=== PATIENT | female | born 1965 | race Caucasian/White ===

== ENCOUNTER 2019-03-06 16:40 | Inpatient (IN) | payer OTHER, MEDICAID ==
[~2019-03-06] VITALS: Ht 170.2 cm; Wt 148.1 kg
[2019-03-06 19:19] LABS: Basophils # (auto) 0.1 uL; Basophils % (auto) 0.6 % (0.0-2.0); Eosinophils # (auto) 0.1 uL; Eosinophils % (auto) 0.8 % (0.0-7.0); Hematocrit 44.1 % (36.0-46.0); Hemoglobin 14.6 g/dL (12.2-16.2); Lactic Acid w/Reflex 2.9 mmol/L (0.4-2.0); Lymphocytes # (auto) 1.5 uL; Lymphocytes % (auto) 9.5 % (10.0-50.0); Mean Corpuscular Hemoglobin 31.5 pg (28.0-32.0); Mean Corpuscular Hgb Conc. 33.1 g/dL (32.0-36.0); Mean Corpuscular Volume 95.1 fL (80.0-100.0); Monocytes # (auto) 1.3 uL; Monocytes % (auto) 7.8 % (0.0-12.0); Neutrophils # (auto) 13.2 uL; Neutrophils % (auto) 81.3 % (37.0-80.0); Platelet Count (auto) 224 10^3/uL (140-450); Red Blood Cells 4.63 10^6/uL (4.0-5.20); Red Cell Distribution Width 14.6 % (11.8-14.3); White Blood Cell 16.2 10^3/uL (4.4-10.8)
[2019-03-06 19:35] LABS: Albumin 3.2 g/dL (3.4-5.0); BUN/Creatinine Ratio 10.4; Calcium 8.9 mg/dL (8.5-10.1); Potassium 4.5 mmol/L (3.5-5.1)
[2019-03-06 19:38] LABS: Bilirubin, Total 0.5 mg/dL (0.2-1.0); Total Protein 8.3 g/dL (6.4-8.2)
[2019-03-06] MEDS ORDERED: VANCOMYCIN 1GM/250ML 250 ML IV ONE (22:30)
[2019-03-06] MEDS ORDERED: InsuLIN REG 1unit/0.01ml Soln (100units/ml) IV ONE (22:30)
[2019-03-06] MEDS ORDERED: PIPERACILLIN-TAZOB 3.375GM 100 ML IV ONE (22:30)
[2019-03-06] MEDS ORDERED: SODIUM CHLORIDE 0.9% 2,000 ML IV ONE (22:30)
[2019-03-06] MEDS ORDERED: NOREPINEPHRINE 8 MG/250ML KIT 250 ML IV ONE (23:54)
[2019-03-07] VITALS (61 sets, daily range): BP systolic 47–159; BP diastolic 25–104
[2019-03-07] MEDS ORDERED: SODIUM CHLORIDE 0.9% 2,000 ML IV ONE (00:15)
[2019-03-07] MEDS ORDERED: ACETAMINOPHEN 325 MG TAB PO ONE (00:15)
[2019-03-07] MEDS ORDERED: NOREPINEPHRINE 8 MG/250ML KIT 250 ML IV SCH (00:17)
[2019-03-07] MEDS ORDERED: ONDANSETRON HCL 4 MG/2 ML VIAL IV PRN (00:45)
[2019-03-07] MEDS ORDERED: SODIUM CHLORIDE 0.9% 1,000 ML IV ONE (00:45)
[2019-03-07] MEDS ORDERED: DEXTROSE (50%) 50ML SYRG IV PRN ×2 (00:45→16:00)
[2019-03-07] MEDS ORDERED: TEMAZEPAM 15 MG CAP PO PRN (00:45)
[2019-03-07] MEDS ORDERED: NITROGLYCERIN 0.4 MG SL TAB SL PRN (00:45)
[2019-03-07] MEDS: SODIUM CHLORIDE 0.9% 1,000 ML IV SCH ×3 (02:00→16:00)
[2019-03-07] MEDS ORDERED: VANCOMYCIN 1GM/250ML 250 ML IV ONE (03:00)
[2019-03-07] MEDS ORDERED: NOREPINEPHRINE 8 MG/250ML KIT 250 ML IV ONE (03:27)
--- NOTE | 2019-03-07 03:45 | NUR ---
ARRIVAL NOTE Pt being admitted to ICU [facility] admitted to ICU via gurney on youth nutritional monitor, and portable 02. Patient transfered to bed, connected to ICU monitoring and oxygen, [facility] Patient oriented to JOSE DOUGLASS, primary RN, unit, room, bed, and unit policies regarding patient care and visiting hours. All questions and concerns addressed, patient verbalized understanding. NOTE: PT ALERT AND ORIENTED X3. PT STATES SHE WANTS TO GET UP AND USE THE BATHROOM. BEDSIDE COMMODE PROVIDED FOR PT. WITH ASSISTANCE AND ANOTHER RN, PT GOT UP TO BED SIDE COMMODE AND VOIDED, PLACED BACK IN BED AND CONNECTED TO BEDSIDE MONITOR. PT TOLERATED WELL. PT ON 2L N.C. SATURATIONS 96%. PT CAME IN WITH LEFT AND RIGHT AC 18 G IV'S. PT ACCIDENTALLY PULLED OUT RIGHT IV. CATHETER INTACT. PRESSURE DRESSING APPLIED. LEVOPHED INFUSING THROUGH LEFT 18 IV. SITE BENIGN AND NO REDNESS OR INFILTRATION NOTED. WILL WATCH IV CLOSELY. ABSCESS TO RIGHT SIDE OF ANUS OOZING BLACK FLUID WITH FOUL SMELL. OPTIFOAM PLACED TO WOUND. SURGICAL CONSULT TODAY REGARDING ABSCESS. FRIEND AT BEDSIDE. CALL LIGHT WITHIN REACH AND PT VERBALIZED UNDERSTANDING TO CALL FOR ASSIST. BED IN LOWEST POSITION AND LOCKED.
[2019-03-07] MEDS: ACCU-CHEK COMFORT CURVE STRIP VI SCH ×5 (04:00→21:38)
[2019-03-07] MEDS: InsuLIN REG 1unit/0.01ml Soln (100units/ml) SC SCH ×5 (04:00→21:38)
--- NOTE | 2019-03-07 05:00 | NUR ---
PT REQUESTING TO SMOKE. EDUCATED PT ON SMOKING POLICY AND SMOKING CESSATION EDUCATION INITIATED. PAGED HOSPITALIST FOR NICOTINE PATCH AND OTHER ORDERS.
--- NOTE | 2019-03-07 05:10 | NUR ---
HOSPITALIST RETURNED CALL NEW ORDERS IN PLACE.
[2019-03-07] MEDS: CARBIDOPA W LEVODOPA 25/100mg TABLET PO SCH ×3 (06:00→21:36)
[2019-03-07] MEDS: GABAPENTIN 300 MG CAP PO SCH ×3 (06:00→21:37)
[2019-03-07 06:13] LABS: Albumin 2.5 g/dL (3.4-5.0); Calcium 7.8 mg/dL (8.5-10.1)
[2019-03-07 06:16] LABS: BUN/Creatinine Ratio 9.9; Bilirubin, Total 0.5 mg/dL (0.2-1.0); Total Protein 6.6 g/dL (6.4-8.2)
--- NOTE | 2019-03-07 06:44 | NUR ---
IV insertion IV access obtained, via clean sterile technique by inserting 2 separate 20 gauge catheters in right upper arm. IV's secured properly. No trauma to sites. Patient tolerated well.
[2019-03-07] MEDS ORDERED: LEVOTHYROXINE SODIUM 50 MCG TAB PO SCH (07:00)
[2019-03-07] MEDS ORDERED: LEVOTHYROXINE PO SCH ×3 (07:00)
[2019-03-07] MEDS: PIPERACILLIN-TAZOB 3.375GM 100 ML IV SCH ×3 (07:57→18:03)
--- NOTE | 2019-03-07 08:00 | NUR ---
Phone Call From MD. Sanchez Received phone call from surgical consult MD Sanchez. Updated on status of patient, no new orders received. MD said he will be by later today to see patient.
[2019-03-07] MEDS: VANCOMYCIN 1,250 MG in D5W 5% 250 ML IV SCH ×2 (08:58→21:45)
[2019-03-07] MEDS: NICOTINE 14 MG/24HR TOPICAL PATCH TD SCH (11:02)
[2019-03-07] MEDS: PARoxetine 20 MG TAB PO SCH (11:02)
[2019-03-07] MEDS: FAMOTIDINE 20 MG TAB PO SCH ×2 (11:03→21:37)
--- NOTE | 2019-03-07 13:00 | NUR ---
WOUND CARE NOTE: IN TO SEE PATIENT AT THIS TIME PER WOUND CARE CONSULT REQUEST. PATIENT RECENTLY ADMITTED TO [facility] WITH DIAGNOSIS OF SEPSIS. CURRENT SELENA SCORE IS 18. WOUND PHOTOS TAKEN AT THAT TIME BY BEDSIDE NURSE FOR REFERENCE, WOUND CONSULT ORDERED. PATIENT HAS SURGICAL CONSULT ORDERED FOR OPEN,DRAINING ABSCESS TO PERIRECTUM. WILL DEFER ALL RECOMMENDATIONS TO SURGEON FOR THIS WOUND. IN THE MEANTIME, ADVISED BEDSIDE NURSE TO APPLY SANITARY [place] TO THE AREA, SECURING PAD IN PLACE WITH DISPOSABLE UNDERWEAR. BILATERAL LEG/FEET HAVE MULTIPLE CLOSED, SCARRED LESIONS, WITH AN OPEN WOUND TO THE LEFT CALF, AND RIGHT # 1 TOE. THERAHONEY AND OPTIFOAM GENTLE OR BANDAID DRESSINGS APPLIED. NO OTHER WOUND NOTED AT THIS TIME. RECOMMEND: FREQUENT TURN SCHEDULE Q 2 HOURS, PRN CONDITION PERMITS WHEN PATIENT IN BED, EOD/PRN DRESSING CHANGES TO BLE OPEN WOUNDS, SANITARY [place]/DISPOSABLE UNDERWEAR TO PERIANAL WOUND WHILE AWAITING SURGICAL CONSULT, DIETARY CONSULT, CONTINUED MONITORING BY WOUND CARE TEAM. Addendum: 03/07/19 at 1701 by Rachele Raya RN Amended: Links added.
--- NOTE | 2019-03-07 13:00 | NUR ---
DR. SPANGLER AT BEDSIDE MD ASSESSED RIGHT BUTTOCK WOUND. NO PLANS FOR SURGERY AT THIS TIME. SEE NEW ORDER FOR WOUND CARE. WOUND CARE PROVIDED ORDERED.
--- NOTE | 2019-03-07 14:00 | NUR ---
Activity Patient assisted oob to bsc to urinate. Patient able to urinate 150ml of dark alexandrea urine. Will encourage po intake and notify md. Patient then assisted to chair using standby assistance. Pt tolerated well. Complete bed linen changed
--- NOTE | 2019-03-07 15:51 | NUR ---
ROUNDS DR. LOMBARDO AT BEDSIDE. UPDATED ON PATIENTS STATUS. NEW ORDERS IN PLACE. NOTIFIED OF POOR U/O OF ONLY 150ML OF DARK LINCOLN URINE WITH A STRONG ODOR. SEE MD ORDERS. Addendum: 03/07/19 at 1949 by Florina Segovia RN New order for laxative ordered. notified patient [place] able [place] [facility] [place] stated if patient is able to get out of bed and use commode is it ok to address issue. stated bowel is not priority at this time as patient has a wound to buttock and he does not want stool in area. . If patient unable to get out of bed and prevent stool from entering wound, medication to be held.
[2019-03-07] MEDS ORDERED: DILTIAZEM HCL 25 MG/5 ML VIAL IV ONE ×2 (15:59→16:00)
[2019-03-07] MEDS ORDERED: DILTIAZEM 125mg/125ml BAG KIT 125 ML IV SCH (17:00)
--- NOTE | 2019-03-07 17:00 | NUR ---
IV insertion IV access obtained, via clean sterile technique by inserting 20 gauge catheter at LEFT FORARM] after 1 attempt(s). IV secured properly. No trauma to site. Patient tolerated procedure well.
--- NOTE | 2019-03-07 17:00 | NUR ---
SPOKE WITH DIDIER Arthur PATIENTS HEART RATE AFLUTTER 130-110'S. TRANSCRIPT EVALUATOR SAID TO START CARDIZEM DRIP AT 10MG/HR. IF SBP BECOMES UNSTABLE TITRATE TO 5MG/HR. MD TO BE NOTIFIED. AFTER OBTAINING ORDERS, HR NOTED 80-90'S CURRENT BP 107/52. CARDIZEM GTT HELD AT THIS TIME.
--- NOTE | 2019-03-07 17:50 | NUR ---
Cardizem gtt started as hr increased back to 130-140's. Bp decreased to 80/50's. Phlebotomy Instructor paged as requested. New orders in place.
--- NOTE | 2019-03-07 17:55 | NUR ---
OUTPUT BLADDER SCANNER PERFORMED AND 456ML OF URINE NOTED. PATIENT STATING SHE CAN ATTEMPT TO GO INTO COMMODE SHE HAS SOME URGENCY.
[2019-03-07] MEDS ORDERED: PHENYLEPHRINE INJ 20 MG in SODIUM CHL 0.9% 250 ML IV SCH (17:57)
--- NOTE | 2019-03-07 18:11 | NUR ---
PACKAGING MANAGER AT BEDSIDE.
[2019-03-07] MEDS ORDERED: OPTISON 3ml Vial for INJ IV ONE (18:25)
[2019-03-07] MEDS: ACETAMINOPHEN 325 MG TAB PO PRN (18:27)
--- NOTE | 2019-03-07 18:58 | NUR ---
PATIENT ATTEMPTED TO URINATE VIA BEDPAN, APPROX 10CC OF LINCOLN URINE NOTED. PATIENT REQUESTING TO BE LEFT ALONE TO EAT AT THIS TIME. EDUCATED POSSIBILITY OF JONES CATHETER INSERTION DUE TO RETENTION. PATIENT AND FRIEND AT BEDSIDE VERBALIZED UNDERSTANDING.
--- NOTE | 2019-03-07 19:10 | NUR ---
paged to notify of urinary retention. New order in place.
--- NOTE | 2019-03-07 19:49 | NUR ---
Reported given to [facility] nurse re: plan of care [facility] nurse notified Dr. Cota request to hold laxative if patient unable to have bowel control or use bsc in order to be more sanitary. Miralax held as patients bp trending low and patient unstable to get out of bed at this time.
[2019-03-07] MEDS ORDERED: POLYETHYLENE GLYCOL 17 GM PWDR PO ONE (20:00)
[2019-03-07] MEDS: DILTIAZEM HCL 60 MG TAB PO SCH (21:36)
[2019-03-07] MEDS: ATORVASTATIN 20 MG TAB PO SCH (21:37)
[2019-03-07] MEDS: INSULIN LANTUS (GLARGINE) 1 /0.01ml (100units/ml) SC SCH (21:38)
[2019-03-07] MEDS: RIVAROXABAN 20 MG TAB PO SCH (21:49)
--- NOTE | 2019-03-07 22:00 | NUR ---
Wound Care Probed wound with sterile cotton tip applicator and cleansed with hydrogen peroxide as ordered by MD. Minimal fluid from wound foul odor noted.
--- NOTE | 2019-03-07 22:30 | NUR ---
ELIMINATION PT STATED SHE WANTED TO TRY AND USE THE BEDSIDE COMMODE AND SEE IF SHE CAN URINATE BEFORE WE HAVE TO PUT A JONES CATHETER IN HER. ASSISTED PT UP TO BEDSIDE COMMODE AND PT VOIDED 350 MLS OF DARK LINCOLN URINE. WILL NOT PLACE JONES AT THIS TIME.
[2019-03-08] VITALS (29 sets, daily range): BP systolic 83–143; BP diastolic 39–113
--- NOTE | 2019-03-08 | NUR ---
Family Pt's partner remains at bedside. Stated she is going home soon. All questions and concerns addressed.
[2019-03-08] MEDS: SODIUM CHLORIDE 0.9% 1,000 ML IV SCH ×3 (01:00→17:56)
[2019-03-08] MEDS: PIPERACILLIN-TAZOB 3.375GM 100 ML IV SCH ×2 (01:00→05:56)
[2019-03-08] MEDS: ACETAMINOPHEN 325 MG TAB PO PRN (01:07)
[2019-03-08 04:08] LABS: Basophils # (auto) 0.1 uL; Basophils % (auto) 0.7 % (0.0-2.0); Eosinophils # (auto) 0.2 uL; Eosinophils % (auto) 1.3 % (0.0-7.0); Hematocrit 36.8 % (36.0-46.0); Hemoglobin 12.2 g/dL (12.2-16.2); Lymphocytes # (auto) 1.4 uL; Lymphocytes % (auto) 11.4 % (10.0-50.0); Mean Corpuscular Hemoglobin 31.7 pg (28.0-32.0); Mean Corpuscular Hgb Conc. 33.2 g/dL (32.0-36.0); Mean Corpuscular Volume 95.4 fL (80.0-100.0); Monocytes # (auto) 0.8 uL; Monocytes % (auto) 7.1 % (0.0-12.0); Neutrophils # (auto) 9.5 uL; Neutrophils % (auto) 79.5 % (37.0-80.0); Nucleated Red Blood Cells % 0.1 %; Platelet Count (auto) 127 10^3/uL (140-450); Red Blood Cells 3.86 10^6/uL (4.0-5.20); Red Cell Distribution Width 15.2 % (11.8-14.3)
[2019-03-08 04:25] LABS: Lactic Acid w/Reflex 2.8 mmol/L (0.4-2.0)
[2019-03-08 04:57] LABS: Alanine Aminotransferase < 6 U/L (13-56); Albumin 2.3 g/dL (3.4-5.0); Anion Gap 8 (5-15); Aspartate Aminotransferase 20 U/L (15-37); BUN/Creatinine Ratio 15.4; Blood Urea Nitrogen 26 mg/dL (7-18); Calcium 7.9 mg/dL (8.5-10.1); Carbon Dioxide 24 mmol/L (21-32); Chloride 99 mmol/L (98-107); GFR African American 40 mL/min; GFR Non-African American 33 mL/min; Glucose 313 mg/dL (74-106); Magnesium 1.6 mg/dL (1.6-2.6); Potassium 3.9 mmol/L (3.5-5.1); Sodium 131 mmol/L (136-145)
[2019-03-08 05:00] LABS: Alkaline Phosphatase 91 U/L (45-117); Bilirubin, Total 0.5 mg/dL (0.2-1.0); Cholesterol 73 mg/dL (< 200); HDL Cholesterol 8 mg/dL (40-59); LDL Cholesterol 34 mg/dL (< 100); Total Protein 6.4 g/dL (6.4-8.2); Triglycerides 283 mg/dL (< 150)
[2019-03-08 05:07] LABS: Free T4 (Free Thyroxine) 0.87 ng/dL (0.89-1.76)
[2019-03-08 05:08] LABS: Folate (Folic Acid) 9.02 ng/mL (5.38-24)
--- NOTE | 2019-03-08 05:30 | NUR ---
PATIENT BEHAVIOR PATIENT TAKES OFF HER B/P CUFF AND O2 SAT PROBE PATIENT WAS GIVEN TEACHING ON THE IMPORTANCE OF VITAL SIGNS AND WAS TOLD TO KEEP THE B/P CUFF, O2 SAT PROBE, IV, HEART MONITOR FOR ACCURATE VITAL SIGNS. PATIENT CONTINUES TO TAKE OFF THE ABOVE ITEMS FROM [id number]. I HAVE GONE INTO PATIENTS ROOM SEVERAL TIMES TO REATTACH THESE ITEMS AND TO GO OVER THE SIGNIFICANCE AND IMPORTANCE OF BEING COMPLIANT WHILE IN THE HOSPITAL
[2019-03-08] MEDS: LEVOTHYROXINE SODIUM 50 MCG TAB PO SCH (05:56)
[2019-03-08] MEDS: CARBIDOPA W LEVODOPA 25/100mg TABLET PO SCH ×3 (05:56→23:07)
[2019-03-08] MEDS: DILTIAZEM HCL 60 MG TAB PO SCH ×3 (05:57→23:00)
[2019-03-08] MEDS: GABAPENTIN 300 MG CAP PO SCH ×3 (06:01→22:25)
[2019-03-08] MEDS: InsuLIN REG 1unit/0.01ml Soln (100units/ml) SC SCH ×3 (06:25→17:56)
[2019-03-08] MEDS: ACCU-CHEK COMFORT CURVE STRIP VI SCH ×4 (06:25→23:25)
--- NOTE | 2019-03-08 06:40 | NUR ---
WOUND CARE CLEANSED WOUND ACCORDING TO MD ORDERS. PT COMPLAINED OF BURNING PAIN UPON TOUCHING AND IRRIGATING WITH HYDROGEN PEROXIDE. MINIMAL SEROUS DRAINAGE NOTED.
--- NOTE | 2019-03-08 06:41 | NUR ---
CARES/HYGIENE PT REFUSED MORNING CARE AT THIS TIME. SHE WANTS TO SLEEP LONGER.
--- NOTE | 2019-03-08 07:30 | NUR ---
REPORT RECEIVED FROM NIGHT RN, PT RESTING IN BED WITH NO DISTRESS NOTED . CONTINUE TO MONITOR
--- NOTE | 2019-03-08 08:30 | NUR ---
ASSESSMENT PT AWAKE AND A/O X4. ABLE TO HELP MOVE SELF IN BED. LUNGS CLEAR THROUGHOUT. O2 AT 2 L VIA NC. TELE ATRIAL FLUTTER 110'S. PALPABLE PULSES TO ALL EXTREMITIES. ABD SOFT WITH ACTIVE BOWEL SOUNDS. LAST BM WAS 2 WKS AGO, PER PT, AND SHE STATES THAT THIS IS NOT UNCOMMON. VOIDS VIA BSC, NONE AT THIS TIME. PT WITH RECTAL ABCESS TO RIGHT BUTTOCK, AREA IS RED AND BLANCHABLE, VERY TENDER TO THE TOUCH WITH NO DRAINAGE NOTED. OPEN AREA WITH RED WOUND BED. LEFT LEG WITH CLOSED SKIN TEAR. RIGHT TOE WITH BANDAID DRESSING INTACT OVER SMALL OPEN WOUND WITH RED WOUND BED AND NO DRAINAGE NOTED. CONTINUE TO MONITOR.
--- NOTE | 2019-03-08 09:00 | NUR ---
ASSISTED PT TO BSC WHERE SHE PASSED A MODERATE TO LARGE FORMED BROWN BM. C/O BSC IS PUTTING PRESSURE ON HER ABCESS. TRANSFERRED TO [facility] WHERE SHE PASSES A SMALL AMOUNT MORE BROWN FORMED BM. ASSISTED WITH PERICARE AND PT BACK INTO BED.
[2019-03-08] MEDS: PHENYLEPHRINE INJ 20 MG in SODIUM CHL 0.9% 250 ML IV SCH ×2 (09:14→12:26)
--- NOTE | 2019-03-08 09:50 | NUR ---
RESTROOM PATIENT UP TO COMMODE WITH HELP ONCE PATIENT WAS HELPED TO HER FEET PATIENT STATED "DON'T TOUCH ME," PATIENT THEN QUICKLY WALKED TO THE COMMODE ON HER OWN. Addendum: 03/09/19 at 0041 by Kendy Hanna RN INCORRECT TIME, TIME SHOULD BE 2150
[2019-03-08] MEDS: VANCOMYCIN 1,250 MG in D5W 5% 250 ML IV SCH ×2 (09:59→21:10)
[2019-03-08] MEDS: PARoxetine 20 MG TAB PO SCH (10:02)
[2019-03-08] MEDS: FAMOTIDINE 20 MG TAB PO SCH ×2 (10:02→23:07)
[2019-03-08] MEDS: NICOTINE 14 MG/24HR TOPICAL PATCH TD SCH (10:08)
[2019-03-08] MEDS: MEROPENEM 1GM IVPB 100 ML IV SCH ×2 (12:04→22:25)
--- NOTE | 2019-03-08 13:30 | NUR ---
MD VISIT PT SEEN AND EXAMINED BY DR HARDY. UPDATED HIM ON PT'S CURRENT CONDITION AND BLOOD SUGAR RESULTS. WANTS TO START PT ON LISPRO INSULIN 15 UNITS SQ TID W/MEALS. THIS IS TO BE GIVEN IN ADDITION TO THE PT'S REGULAR INSULIN SLIDING SCALE COVERAGE.
[2019-03-08] MEDS ORDERED: INSULIN LISPRO (HUMAN) 100 UNITS/ML ML SC SCH (18:00)
[2019-03-08] MEDS: RIVAROXABAN 20 MG TAB PO SCH (18:02)
--- NOTE | 2019-03-08 18:15 | NUR ---
SPOKE WITH DR PINA REGARDING DOWNGRADE TO [facility]. DR HARDY HAD STATED WHEN HE MADE ROUNDS THAT THE PT COULD BE DOWNGRADED TO [facility] IF BP STABLE . UPDATED ON CURRENT VITALS AND DOWNGRADE ORDER RECEIVED.
--- NOTE | 2019-03-08 19:15 | NUR ---
PATIENT BEHAVIOR PATIENT TAKES OFF HER B/P CUFF AND O2 SAT PROBE PATIENT WAS GIVEN TEACHING ON THE IMPORTANCE OF VITAL SIGNS AND WAS TOLD TO KEEP THE B/P CUFF, O2 SAT PROBE, IV, HEART MONITOR FOR ACCURATE VITAL SIGNS
--- NOTE | 2019-03-08 19:35 | NUR ---
INITIAL CONTACT ASSUMED CARE OF PATIENT PATIENT APPEARS TO BE LAYING IN BED IN SEMI FOWLERS POSITION AT THIS TIME AAOX4 HOWEVER PATIENT APPEARS TO BE CONFUSED AT TIMES. VITAL SIGNS WITHIN NORMAL LIMITS NO S/S OF DISTRESS NOTED, PATIENT DENIES PAIN AT THIS TIME NOTED PATIENT IS ON 2 L NASAL CANNULA SATTING AT 97% NOTED 20 G IV LEFT A/C PATENT, INTACT AND ASYMPTOMATIC, SEE IV SPREADSHEET FOR MEDICATION AND TITRATIONS FAMILY AT BEDSIDE SAFETY MAINTAINED, WILL CONTINUE TO MONITOR
--- NOTE | 2019-03-08 19:55 | NUR ---
REPORT REPORT GIVEN TO WILMAN PIERCE RN. Addendum: 03/08/19 at 2015 by Sloane Mendoza RN ENDORSED TO WILMAN THAT UA IS OUTSTANDING. HAVE NOT BEEN ABLE TO COLLECT PT HAS HAD A BM WHEN SHE HAS VOIDED. SHE DOES NOT WANT A JONES TO BE PLACED.
[2019-03-08] MEDS: VANCOMYCIN PER PHARMACY 0 MG IV SCH (21:00)
--- NOTE | 2019-03-08 22:00 | NUR ---
PATIENT REFUSED WOUND CARE PATIENT STATES THAT SHE WOULD RATHER HAVE A DIAPER RASH CREAM ON HER BOTTOM PATIENT WAS TOLD THAT WE DO NOT CARRY DIAPER RASH CREAM AND OFFERED Z-GUARD, PATIENT REFUSED
--- NOTE | 2019-03-08 22:05 | NUR ---
Patient bathe/linen change Patient given complete bath. Skin integrity assessed for any changes. Linens changed. Patient repositioned for comfort. Gown changed. patient assessed for pain and comfort. Pillows placed under tarun prominences. No S/S of distress noted, patient tolerated well.
[2019-03-08] MEDS: ATORVASTATIN 20 MG TAB PO SCH (22:25)
--- NOTE | 2019-03-08 22:45 | NUR ---
PATIENT BEHAVIOR PATIENT TAKES OFF HER B/P CUFF AND O2 SAT PROBE PATIENT WAS GIVEN TEACHING ON THE IMPORTANCE OF VITAL SIGNS AND WAS TOLD TO KEEP THE B/P CUFF, O2 SAT PROBE, IV, HEART MONITOR FOR ACCURATE VITAL SIGNS. PATIENT CONTINUES TO TAKE OFF THE ABOVE ITEMS
--- NOTE | 2019-03-08 23:33 | NUR ---
PAIN PATIENT COMPLAINING OF PAIN AT THE SITE OF THE ABSCESS MORPHINE GIVEN
[2019-03-09] VITALS (42 sets, daily range): BP systolic 79–163; BP diastolic 38–117
--- NOTE | 2019-03-09 | NUR ---
WOUND CARE WOUND WAS CLEANED WITH PEROXIDE AND DRIED PATIENT TOLERATED WELL
--- NOTE | 2019-03-09 | NUR ---
16F JONES CATHETER PLACED PER DR. AIKEN
--- NOTE | 2019-03-09 | NUR ---
PATIENT BEHAVIOR PATIENT GETS OUT OF BED ON HER OWN AND CLOSES THE CURTAIN TO HER ROOM PATIENT WAS TOLD THAT IT IS UNSAFE TO CLOSE THE CURTAIN BECAUSE I AM UNABLE TO SEE VITAL SIGNS AND OR IF PATIENT IS IN DISTRESS FOR ANY REASON PATIENT VERBALIZED UNDERSTANDING, WILL CONTINUE TO MONITOR
--- NOTE | 2019-03-09 | NUR ---
PATIENT COMPLAINING OF NAUSEA ZOFRAN GIVEN FOR NAUSEA/VOMITING
--- NOTE | 2019-03-09 00:10 | NUR ---
URINE SAMPLE SENT TO LAB
[2019-03-09] MEDS: MORPHINE SULF INJ 2 MG/ML SYRINGE 1ML IV PRN ×2 (00:33→01:42)
--- NOTE | 2019-03-09 00:35 | NUR ---
FAMILY LEFT THE BEDSIDE FOR THE EVENING GEOFF/GIRLFRIEND, LEFT THE UNIT FOR THE EVENING
[2019-03-09 00:53] LABS: Urine WBC None Seen /hpf (0 - 5)
[2019-03-09] MEDS: INSULIN LANTUS (GLARGINE) 1 /0.01ml (100units/ml) SC SCH ×2 (00:54→22:31)
[2019-03-09] MEDS: InsuLIN REG 1unit/0.01ml Soln (100units/ml) SC SCH ×4 (01:00→22:32)
[2019-03-09 01:16] LABS: Urine Bacteria FEW /hpf (None Seen); Urine Blood Negative /uL (Negative); Urine Budding Yeast MANY /hpf (None Seen); Urine Specific Gravity 1.021 (1.001-1.035)
[2019-03-09 01:41] LABS: Protein, Urine 56.3 mg/dL (0.0-11.9)
--- NOTE | 2019-03-09 02:00 | NUR ---
WOUND CARE PATIENT REFUSED WOUND CARE AT THIS TIME STILL REQUESTING DIAPER RASH CREAM
--- NOTE | 2019-03-09 04:00 | NUR ---
WOUND CARE WOUND WAS CLEANED WITH PEROXIDE PATIENT TOLERATED WELL
[2019-03-09 04:10] LABS: Basophils # (auto) 0.1 uL; Basophils % (auto) 0.5 % (0.0-2.0); Eosinophils # (auto) 0.1 uL; Hematocrit 36.7 % (36.0-46.0); Hemoglobin 12.2 g/dL (12.2-16.2); Lymphocytes # (auto) 1.2 uL; Lymphocytes % (auto) 11.2 % (10.0-50.0); Mean Corpuscular Hemoglobin 31.5 pg (28.0-32.0); Mean Corpuscular Hgb Conc. 33.1 g/dL (32.0-36.0); Monocytes % (auto) 9.4 % (0.0-12.0); Neutrophils # (auto) 8.1 uL; Neutrophils % (auto) 77.9 % (37.0-80.0); Platelet Count (auto) 107 10^3/uL (140-450); Red Blood Cells 3.86 10^6/uL (4.0-5.20); Red Cell Distribution Width 15.1 % (11.8-14.3); White Blood Cell 10.5 10^3/uL (4.4-10.8)
[2019-03-09 04:29] LABS: Chloride 101 mmol/L (98-107); Potassium 4.2 mmol/L (3.5-5.1); Sodium 131 mmol/L (136-145)
[2019-03-09 04:36] LABS: Alanine Aminotransferase < 6 U/L (13-56); Albumin 2.2 g/dL (3.4-5.0); Alkaline Phosphatase 108 U/L (45-117); Anion Gap 6 (5-15); Aspartate Aminotransferase 17 U/L (15-37); BUN/Creatinine Ratio 21.2; Bilirubin, Total 0.4 mg/dL (0.2-1.0); Blood Urea Nitrogen 28 mg/dL (7-18); Calcium 8.2 mg/dL (8.5-10.1); Carbon Dioxide 24 mmol/L (21-32); GFR African American 54 mL/min; GFR Non-African American 44 mL/min; Glucose 240 mg/dL (74-106); Magnesium 2.3 mg/dL (1.6-2.6); Total Protein 6.6 g/dL (6.4-8.2)
--- NOTE | 2019-03-09 05:00 | NUR ---
BATHROOM/BEHAVIOR PATIENT TAKES OFF ATTACHMENTS FOR VITAL SIGNS, GETS OUT OF BED WITHOUT USING HER CALL LIGHT TO ASK FOR HELP. PATIENT WALKS TO THE COMMODE BY HERSELF. PATIENT WAS TOLD TO CALL FOR HELP WHEN NEEDING TO GET OUT OF BED. PATIENT VERBALIZED UNDERSTANDING. SAFETY MAINTAINED, WILL CONTINUE TO MONITOR
[2019-03-09] MEDS: VANCOMYCIN PER PHARMACY 0 MG IV SCH (06:00)
[2019-03-09] MEDS: DILTIAZEM HCL 60 MG TAB PO SCH ×3 (07:05→22:25)
[2019-03-09] MEDS: LEVOTHYROXINE SODIUM 50 MCG TAB PO SCH (07:05)
[2019-03-09] MEDS: GABAPENTIN 300 MG CAP PO SCH ×3 (07:05→22:26)
[2019-03-09] MEDS: CARBIDOPA W LEVODOPA 25/100mg TABLET PO SCH ×3 (07:05→22:17)
--- NOTE | 2019-03-09 07:30 | NUR ---
REPORT REPORT RECEIVED FROM WILMAN PIERCE RN.
--- NOTE | 2019-03-09 08:30 | NUR ---
PT AWAKE AND A/O X4. ABLE TO MOVE SELF IN BED. BED ALARM ON FOR PT SAFETY. LUNGS CLEAR WITH NO SOB NOTED. ON O2 AT 2 L/M . PT ATRIAL FLUTTER , 110. PALPABLE PULSES TO ALL EXTREMITIES. ABD SOFT , ROUND WITH + BOWEL SOUNDS. LAST BM WAS YESTERDAY. JONES CATHETER DRAINING CLEAR YELLOW URINE. PT WITH RECTAL ABSCESS TO RIGHT INNER BUTTOCK, YESTERDAY WAS OPEN AND NOW LIGHTLY SEALED OVER. AREA AROUND IS BLANCHABLE RED AND THEN PINK. PAINFUL TO THE TOUCH. TURNED FOR COMFORT. ADMINISTERED LIPRO INSUILN ORDERED WITH BREAKFAST.
[2019-03-09] MEDS: INSULIN LISPRO (HUMAN) 100 UNITS/ML ML SC SCH ×3 (09:05→18:40)
[2019-03-09] MEDS: VANCOMYCIN 1,250 MG in D5W 5% 250 ML IV SCH ×2 (09:49→22:05)
[2019-03-09] MEDS: FAMOTIDINE 20 MG TAB PO SCH ×2 (09:52→22:17)
[2019-03-09] MEDS: PARoxetine 20 MG TAB PO SCH (09:52)
[2019-03-09] MEDS: ASPirin 81 mg TAB PO SCH (09:52)
[2019-03-09] MEDS: NICOTINE 14 MG/24HR TOPICAL PATCH TD SCH (09:53)
[2019-03-09] MEDS: MEROPENEM 1GM IVPB 100 ML IV SCH ×2 (11:44→22:00)
[2019-03-09] MEDS: ACCU-CHEK COMFORT CURVE STRIP VI SCH ×3 (11:45→22:30)
--- NOTE | 2019-03-09 13:00 | NUR ---
PT DOZING OFF AND ON AND WANTS TO WAIT TO EAT LUNCH.
[2019-03-09] MEDS: SODIUM CHLORIDE 0.9% 1,000 ML IV SCH (13:05)
--- NOTE | 2019-03-09 15:21 | NUR ---
REPORT PT TO TRANSFER TO ROOM [facility]. REPORT CALLED TO RECEIVING RN, ANANTH. PT AND HER GIRLFRIEND , GEOFF, AWARE OF PENDING TRANSFER.
--- NOTE | 2019-03-09 16:30 | NUR ---
DELAY IN TRANSFER PT WITH HEART RATE UP TO 130'S FOR APPROX 5 MINUTES. WILL CONTINUE TO MONITOR PT BEFORE TRANSFERRING.
--- NOTE | 2019-03-09 17:09 | NUR ---
EKG DONE AND ST 111.
--- NOTE | 2019-03-09 17:30 | NUR ---
Admit to [facility] received to [facility] from ICU via hospital bed on lead electrical controls engineer, and portable 02. Patient assisted to restroom and back to bed, fall precautions in placed. Patient connected to unit monitoring and oxygen, and weighed by bedscale. Patient awake and oriented x3, re-oriented to time. No S/S of SOB or pain. See interventions for complete assessment. Bed locked on low position, side rails up x2, bed alarms on at all times, call church within reach, instructed to call for need assistance. Patient oriented to Rosalind ruvalcaba RN, unit, room, bed, and unit policies regarding patient care and visiting hours. All questions and concerns addressed, patient verbalized understanding. Will continue to monitor.
--- NOTE | 2019-03-09 17:40 | NUR ---
PATIENT TRANSPORTED TO [facility], ROOM 265 ON HOSPITAL BED WITH ALL BELONGINGS, CONNECTED TO PORTABLE MOLTEN IRON POURER AND PORTABLE OXYGEN. PATIENTS SIGNIFICANT OTHER ALONG SIDE PATIENT CONNECTED TO BEDSIDE MONITORS AND WALL OXYGEN. NEW ASSIGNED RADHA WADSWORTH AT BEDSIDE. PATIENT STABLE DURING TRANSPORT
[2019-03-09] MEDS: HYDROcodone-ACET 5/325MG TAB PO PRN ×2 (18:39→22:52)
[2019-03-09] MEDS: RIVAROXABAN 20 MG TAB PO SCH (18:39)
[2019-03-09] MEDS: ATORVASTATIN 20 MG TAB PO SCH (22:27)
--- NOTE | 2019-03-10 | NUR ---
Pt stated Cronin bothering her. Balloon deflated and catheter inserted further about another 2 inches. Reinflated balloon with 10ml saline. Vagina rinsed with saline incase Betadine from original insertion was irritating her. Pt stated that it felt better. RN warned pt that when she gets up and down from bed that it can pull on catheter and to be careful. Pt had verbalized understanding.
[2019-03-10] MEDS: SODIUM CHLORIDE 0.9% 1,000 ML IV SCH ×2 (00:50→14:10)
--- NOTE | 2019-03-10 01:00 | NUR ---
IV no longer patent. New IV placed, 20g to RT HD. Old IV removed, canula intact. Tolerated well.
[2019-03-10] MEDS: MEROPENEM 1GM IVPB 100 ML IV SCH ×3 (05:34→22:48)
[2019-03-10] MEDS: CARBIDOPA W LEVODOPA 25/100mg TABLET PO SCH ×3 (05:34→21:42)
[2019-03-10] MEDS: LEVOTHYROXINE SODIUM 50 MCG TAB PO SCH (05:37)
[2019-03-10] MEDS: HYDROcodone-ACET 5/325MG TAB PO PRN ×2 (05:38→21:40)
[2019-03-10] MEDS: GABAPENTIN 300 MG CAP PO SCH ×3 (05:39→21:42)
[2019-03-10] MEDS: DILTIAZEM HCL 60 MG TAB PO SCH ×3 (05:44→21:41)
[2019-03-10] MEDS: INSULIN LISPRO (HUMAN) 100 UNITS/ML ML SC SCH ×3 (06:00→17:34)
[2019-03-10] MEDS: ACCU-CHEK COMFORT CURVE STRIP VI SCH ×4 (06:00→21:42)
[2019-03-10] MEDS: InsuLIN REG 1unit/0.01ml Soln (100units/ml) SC SCH ×4 (06:01→21:42)
[2019-03-10 08:00] VITALS: BP 127/73
--- NOTE | 2019-03-10 08:00 | NUR ---
Opening Shift Note Assumed care of patient resting at this time. Patient A&Ox3. Patient on the monitor. Patient had taken of NC. Placed NC back on patient at 2L, O2 saturation now at 96%. IV right hand 20G running NS at 75ml/hr, patent, clean, dry, and intact. No S/S of distress/SOB or pain. Bed locked and in the lowest position, side rails up x2, call light with in reach. Instructed on POC and to call for assist PRN. Will continue to monitor.
--- NOTE | 2019-03-10 08:06 | NUR ---
Pt pulled out Cronin at 0515 and went to bathroom disconnecting herself from the IV and monitors. Pt stated Cronin was bothering her and she did not want to have more pain than what she came in for. No bleeding noted or trauma noted from pulling out catheter. Pt is agitated and confused blaming nurse for things that did not happen. Refused to be treated by nurse for wound care. Would only accept IV meds and oral meds this morning. Linens were changed while pt was in restroom. Wound care supplies had been pulled, will give them to AM shift and endorse wound care to the next shift. Also pt upset that she is not getting her correct dose of Gabapentin. Pt states she takes 1200mg TID. Will inform AM shift to request med update from . Pt resting at this time with no S/S of distress. [place] given this morning at 0600 for pain. Report given, care endorsed.
--- NOTE | 2019-03-10 09:00 | NUR ---
Dr. Craft at bedside.
--- NOTE | 2019-03-10 09:50 | NUR ---
Dr. Greenberg at bedside.
--- NOTE | 2019-03-10 10:00 | NUR ---
Medication dosages, usages, and side effects explained to patient. Patient verbalized understanding. Will continue to monitor.
[2019-03-10] MEDS: VANCOMYCIN 1,250 MG in D5W 5% 250 ML IV SCH ×2 (10:06→21:30)
[2019-03-10] MEDS: NICOTINE 14 MG/24HR TOPICAL PATCH TD SCH (10:06)
[2019-03-10] MEDS: ASPirin 81 mg TAB PO SCH (10:06)
[2019-03-10] MEDS: PARoxetine 20 MG TAB PO SCH (10:06)
[2019-03-10] MEDS: FAMOTIDINE 20 MG TAB PO SCH ×2 (10:06→21:42)
--- NOTE | 2019-03-10 10:30 | NUR ---
Patient refused wound care.
[2019-03-10 10:44] LABS: BUN/Creatinine Ratio 19.4; Calcium 7.8 mg/dL (8.5-10.1); Potassium 3.9 mmol/L (3.5-5.1)
--- NOTE | 2019-03-10 11:00 | NUR ---
Family at bedside.
[2019-03-10 11:50] VITALS: BP 93/66
--- NOTE | 2019-03-10 12:00 | NUR ---
Wound care done. Patient resting at this time.
--- NOTE | 2019-03-10 12:11 | NUR ---
NUTRITION ASSESSMENT NOTES Please refer to link notes of nutrition screen form filed under the intervention section of the plan of care for further details. Est. Needs: 1850 kcal to 2550 kcal (13-18 kcal/kgBW), 61 gms to 79 gms pro (1.0-1.3 gms/kgIBW d/t severe hypoalbuminemia, elev. renal labs). Will continue to monitor pertinent labs and reassess nutrient need prn Thank you. Addendum: 03/10/19 at [address] Amended: Links added.
--- NOTE | 2019-03-10 13:00 | NUR ---
Patient sitting up on side of bed eating lunch. Patient tolerating at this time. Will continue to monitor.
--- NOTE | 2019-03-10 15:30 | NUR ---
Patient resting at this time. No S/S of pain/SOB or distress. Will continue to monitor.
[2019-03-10 15:54] VITALS: BP 95/55
--- NOTE | 2019-03-10 16:40 | NUR ---
Patient taken to CT.
--- NOTE | 2019-03-10 16:52 | NUR ---
Patient back from CT. Patient on the monitor. Patient resting at this time. Will continue to monitor.
[2019-03-10] MEDS: RIVAROXABAN 20 MG TAB PO SCH (17:33)
--- NOTE | 2019-03-10 18:34 | NUR ---
End of shift note: Patient sitting on side of bed talking with family. Patient A&Ox3. Patient on the monitor. Patient on room air saturation at 94%. IV right hand 20G running NS at 75ml/hr, patent, clean, dry, and intact. No S/S of distress/SOB or pain. Bed locked and in the lowest position, side rails up x2, call light with in reach. Will continue to monitor. Report to be given to field operations coordinator RN.
[2019-03-10 20:00] VITALS: BP 89/50
--- NOTE | 2019-03-10 20:00 | NUR ---
SHIFT OPENING NOTE RECEIVED PATIENT AWAKE, ALERT AND ORIENTED X4. NO SOB, DISTRESS OR PAIN NOTED. ON ROOM AIR. PHYSICAL ASSESSMENT COMPLETED, SEE INTERVENTIONS. INSTRUCTED ON POC AND TO CALL FOR ASSIST NEEDED. BED IS IN THE LOWEST POSITION WITH SIDE RAILS UP X2, CALL LIGHT IS WITHIN REACH.
--- NOTE | 2019-03-10 21:10 | NUR ---
INDEPENDENTLY UP TO BATHROOM BACK TO BED SAFELY
--- NOTE | 2019-03-10 21:20 | NUR ---
IV insertion IV access obtained, via clean sterile technique by inserting [20] gauge catheter at [LFA] after [1] attempt(s). IV secured properly. No trauma to site. Patient tolerated well. NOTE: LEFT HAND IV LEAKING AND NOT FLUSHING, AND REMOVED.
--- NOTE | 2019-03-10 21:40 | NUR ---
SIGNIFICANT OTHER GEOFF AT BEDSIDE
[2019-03-10] MEDS: ATORVASTATIN 20 MG TAB PO SCH (21:41)
[2019-03-10] MEDS: INSULIN LANTUS (GLARGINE) 1 /0.01ml (100units/ml) SC SCH (21:42)
--- NOTE | 2019-03-10 23:44 | NUR ---
VISITOR LEFT THE BEDSIDE FOR THE NIGHT
[2019-03-11] VITALS: BP 138/71
[2019-03-11] MEDS: SODIUM CHLORIDE 0.9% 1,000 ML IV SCH ×2 (00:42→21:43)
--- NOTE | 2019-03-11 00:45 | NUR ---
ROUNDS PATIENT IS LAYING AWAKE IN BED ON HER CELLPHONE. NO SOB, DISTRESS OR PAIN NOTED. WILL CONTINUE TO CLOSELY MONITOR.
[2019-03-11 04:00] VITALS: BP 132/79
[2019-03-11 06:15] LABS: Basophils # (auto) 0.1 uL; Basophils % (auto) 0.7 % (0.0-2.0); Eosinophils # (auto) 0.2 uL; Eosinophils % (auto) 2.8 % (0.0-7.0); Hematocrit 36.3 % (36.0-46.0); Lymphocytes # (auto) 1.9 uL; Mean Corpuscular Hemoglobin 30.9 pg (28.0-32.0); Mean Corpuscular Hgb Conc. 33.1 g/dL (32.0-36.0); Mean Corpuscular Volume 93.4 fL (80.0-100.0); Monocytes # (auto) 1.1 uL; Neutrophils # (auto) 5.2 uL; Neutrophils % (auto) 61.5 % (37.0-80.0); Platelet Count (auto) 163 10^3/uL (140-450); Red Blood Cells 3.88 10^6/uL (4.0-5.20); Red Cell Distribution Width 15.1 % (11.8-14.3); White Blood Cell 8.5 10^3/uL (4.4-10.8)
[2019-03-11] MEDS: GABAPENTIN 300 MG CAP PO SCH ×3 (06:20→21:41)
[2019-03-11] MEDS: CARBIDOPA W LEVODOPA 25/100mg TABLET PO SCH ×3 (06:20→21:41)
[2019-03-11] MEDS: DILTIAZEM HCL 60 MG TAB PO SCH ×3 (06:20→21:41)
[2019-03-11] MEDS: MEROPENEM 1GM IVPB 100 ML IV SCH ×3 (06:20→21:43)
[2019-03-11] MEDS: LEVOTHYROXINE SODIUM 50 MCG TAB PO SCH (06:21)
[2019-03-11] MEDS: HYDROcodone-ACET 5/325MG TAB PO PRN ×2 (06:21→21:42)
[2019-03-11 06:29] LABS: BUN/Creatinine Ratio 11.3; Calcium 8.2 mg/dL (8.5-10.1); Potassium 3.9 mmol/L (3.5-5.1)
[2019-03-11] MEDS: InsuLIN REG 1unit/0.01ml Soln (100units/ml) SC SCH ×4 (06:44→21:44)
[2019-03-11] MEDS: ACCU-CHEK COMFORT CURVE STRIP VI SCH ×4 (06:44→21:43)
[2019-03-11] MEDS: INSULIN LISPRO (HUMAN) 100 UNITS/ML ML SC SCH ×3 (06:44→18:36)
--- NOTE | 2019-03-11 06:47 | NUR ---
END OF SHIFT PATIENT IS SITTING UP AT THE SIDE OF THE BED. NO SOB, OR DISTRESS NOTED. WILL GIVE REPORT AND ENDORSE CARE TO THE DAY SHIFT RN.
--- NOTE | 2019-03-11 07:30 | NUR ---
Opening Shift Note Assumed care of patient, patient sleeping on her right side, room air at this time, her O2 saturation around 81-83%, her o2 NC at the table, called patient by her name, put her back to O2 NC 3 LPM, her O2 saturation went to 95-96%. No S/S of distress/SOB or pain. Instructed on POC and to callfor assist PRN, will continue to monitor for changes Q1hr and PRN.
[2019-03-11 08:00] VITALS: BP 123/86
--- NOTE | 2019-03-11 08:15 | NUR ---
Breakfast tray provided, no coffee, patient can have light breakfast, plan for Stress test this morning. Patient made aware.
--- NOTE | 2019-03-11 08:35 | NUR ---
IV insertion IV access obtained, via clean sterile technique by inserting 20 gauge catheter at right forearm after 1 attempt. IV secured properly. No trauma to site. Patient tolerated procedure well.
[2019-03-11] MEDS: VANCOMYCIN 1,250 MG in D5W 5% 250 ML IV SCH ×2 (09:17→21:32)
[2019-03-11] MEDS: ASPirin 81 mg TAB PO SCH (09:17)
[2019-03-11] MEDS: PARoxetine 20 MG TAB PO SCH (09:17)
[2019-03-11] MEDS: NICOTINE 14 MG/24HR TOPICAL PATCH TD SCH (09:17)
[2019-03-11] MEDS: FAMOTIDINE 20 MG TAB PO SCH ×2 (09:17→21:39)
--- NOTE | 2019-03-11 09:46 | NUR ---
Patient sleeping at this time, no complaining of SOB or chest pain noted.
--- NOTE | 2019-03-11 10:30 | NUR ---
Patient walked to the restroom, stated that she had bowel movement. Back to the bed, sitting on the edge of the bed, no complaining of SOB. Will continue to monitor.
--- NOTE | 2019-03-11 10:50 | NUR ---
Dr. Greenberg seen patient at this time, plan of care discussed with patient, patient made aware, will wait Dr. Sanchez to see patient for the wound management.
[2019-03-11] MEDS ORDERED: ADENOSINE 120 MG in GIVE UN-DILUTED 0 ML IV STA (11:03)
[2019-03-11] MEDS: FLUCONAZOLE 200MG/100ML 100 ML IV SCH ×2 (11:09→12:27)
[2019-03-11 11:51] VITALS: BP 114/65
--- NOTE | 2019-03-11 13:59 | NUR ---
STRESS TEST Stress test on hold at this time. Dobutamine will be most appropriate for this patient however the heart rate is too high. Medication changes will be made and the patient will be checked daily too see if it's appropriate to proceed. MD/CURRICULUM DESIGNER and Primary RN aware.
[2019-03-11] MEDS: DILTIAZEM HCL 25 MG/5 ML VIAL IV ONE (14:00)
--- NOTE | 2019-03-11 14:00 | NUR ---
Lunch tray provided, patient sitting on the bed, her friend at the bedside. Insulin as schedule given at this time due to they were hold for the stress test.
--- NOTE | 2019-03-11 14:30 | NUR ---
Dr. Michel at the bedside, seen and examined patient at this time, plan of care discussed with patient and her friend, they made aware that plan for OR tomorrow.
[2019-03-11 15:45] VITALS: BP 120/81
[2019-03-11] MEDS: RIVAROXABAN 20 MG TAB PO SCH (18:00)
--- NOTE | 2019-03-11 18:20 | NUR ---
Patient sitting on the edge of the bed, watching the game on her phone with her girlfriend, dinner tray provided.
--- NOTE | 2019-03-11 19:45 | NUR ---
Opening Shift Note Assumed care of patient, awake and alert. No S/S of distress/SOB. Patient's significant other , ruthie at bedside. Complete physical assessment done: see interventions. Instructed on POC and to call for assist PRN, will continue to monitor for changes frequently.
[2019-03-11 19:54] VITALS: BP 115/69
--- NOTE | 2019-03-11 21:38 | NUR ---
SPOKE WITH PHARMACIST ABOUT MISSING SCHEDULED MED NIACIN 2000MG NOT AVAILABLE, SINCE PATIENT DOES NOT TAKE THIS MED AT HOME PHARMACIST SAID TO LET THE MD KNOW TOMORROW TO [facility] MED.
[2019-03-11] MEDS: ATORVASTATIN 20 MG TAB PO SCH (21:39)
[2019-03-11] MEDS: INSULIN LANTUS (GLARGINE) 1 /0.01ml (100units/ml) SC SCH (21:44)
--- NOTE | 2019-03-12 04:17 | NUR ---
HYPOTHERMIC UNABLE TO READ ORAL AND AXILLARY TEMPERATURES, RECTAL TEMPERATURE DONE SHOWS 95.7F PATIENT NOW WITH A MAGALI NEERUER. CONTINUE TO MONITOR. Addendum: 03/12/19 at 0420 by Gisella Romero RN PLEASE DISREGARD, CHARTED DONE ON WRONG PATIENT
[2019-03-12 05:46] LABS: INR 1.16 (0.9-1.15); Partial Thromboplastin Time 29.9 sec (23.64-32.05)
[2019-03-12] MEDS: MEROPENEM 1GM IVPB 100 ML IV SCH ×3 (05:46→23:18)
[2019-03-12] MEDS: INSULIN LISPRO (HUMAN) 100 UNITS/ML ML SC SCH ×3 (05:51→18:43)
[2019-03-12] MEDS: InsuLIN REG 1unit/0.01ml Soln (100units/ml) SC SCH ×4 (05:51→21:41)
[2019-03-12] MEDS: ACCU-CHEK COMFORT CURVE STRIP VI SCH ×4 (05:51→21:41)
[2019-03-12] MEDS: GABAPENTIN 300 MG CAP PO SCH ×3 (05:53→21:38)
[2019-03-12] MEDS: LEVOTHYROXINE SODIUM 50 MCG TAB PO SCH (05:53)
[2019-03-12] MEDS: CARBIDOPA W LEVODOPA 25/100mg TABLET PO SCH ×3 (05:53→21:39)
[2019-03-12] MEDS: DILTIAZEM HCL 60 MG TAB PO SCH ×3 (05:55→21:39)
[2019-03-12 05:56] VITALS: BP 123/73
[2019-03-12 06:05] LABS: BUN/Creatinine Ratio 7.6; Calcium 8.3 mg/dL (8.5-10.1); Potassium 3.6 mmol/L (3.5-5.1)
[2019-03-12] MEDS: SODIUM CHLORIDE 0.9% 1,000 ML IV SCH (06:10)
--- NOTE | 2019-03-12 06:25 | NUR ---
AM CARE/CHG WIPES PATIENT AMBULATED TO TOILET WITH SB ASSIST COMPLETE LINEN CHANGE DONE , CHG WIPES GIVEN TO PATIENT FOR PRE-OP PATIENT ABLE TO CLEANSE SELF INDEPENDENTLY. NEW GOWN PLACED ON PATIENT. HAS REMAINED NPO FOR SX TODAY EXCEPT FOR AM MEDS THIS AM. PATIENT BACK IN BED WITH CALL LIGHT WITHIN EASY REACH. WILL CONTINUE TO MONITOR.
--- NOTE | 2019-03-12 07:34 | NUR ---
preop check list complete and placed in hard chart
--- NOTE | 2019-03-12 07:40 | NUR ---
Opening Shift Note Assumed care of patient, sleeping on her left side. No S/S of distress/SOB or pain. Instructed on POC and to call for assist PRN, will continue to monitor for changes Q1hr and PRN.
--- NOTE | 2019-03-12 07:54 | NUR ---
Received a call from Dr. Michel regarding OR this morning, MD need Dr. Greenberg to clear patient for OR. Called blanket winder operator, will page Dr. Greenberg, waiting a call back from and then will call back to Dr. Michel.
[2019-03-12 07:59] VITALS: BP 117/74
--- NOTE | 2019-03-12 08:40 | NUR ---
Patient still sleeping at this time, HR 110-115, RR 18-22, O2 saturation around 94-96%, lung sounds clear both lungs, better than yesterday. No wheezing noted while sleeping. Still waiting a call back from Dr. Greenberg to clear for OR today.
--- NOTE | 2019-03-12 08:51 | NUR ---
Stress Test Update Pt tachycardic in high 110s. Primary RN notified, pt will be evaluated tomorrow again for stress test. Stress test held at this time. Pt able to eat if no pending procedures.
[2019-03-12] MEDS: VANCOMYCIN 1,250 MG in D5W 5% 250 ML IV SCH ×2 (09:24→20:45)
--- NOTE | 2019-03-12 10:01 | NUR ---
Paged Dr. Greenberg per Dr. Michel requested to clear for OR today, will wait a call back.
--- NOTE | 2019-03-12 10:10 | NUR ---
OR made aware that patient is clear for OR. OR will contact Dr. Michel.
--- NOTE | 2019-03-12 10:13 | NUR ---
Received a call from Dr. Greenberg, patient clear for . Paged Dr. Michel.
--- NOTE | 2019-03-12 10:28 | NUR ---
Received a call from Dr. Shayla MD made aware that patient is clear for OR today but he recommends that patient need to be controlled with her HR and need to have Stress test done before OR (for I&D). Will let patient know about the plan, will let Dr. Greenberg make aware too.
--- NOTE | 2019-03-12 10:50 | NUR ---
Dr. Greenberg made aware, will talk to Dr. Ely for further treatment.
[2019-03-12] MEDS: FLUCONAZOLE 200MG/100ML 100 ML IV SCH (10:51)
[2019-03-12] MEDS: DILTIAZEM HCL 25 MG/5 ML VIAL IV ONE (11:10)
--- NOTE | 2019-03-12 11:14 | NUR ---
OUTFITTER CABIN for Dr. Ely seen and examined patient at this time. Plan of care discussed with patient, patient made aware, OUTFITTER CABIN will discuss with Dr. Ely.
[2019-03-12] MEDS ORDERED: DILTIAZEM HCL 25 MG/5 ML VIAL IV ONE (11:15)
--- NOTE | 2019-03-12 11:19 | NUR ---
Patient refused O2 NC at this time, when room air, her O2 saturation around 88-92%, will continue to monitor and care.
[2019-03-12 11:53] VITALS: BP 112/66
[2019-03-12] MEDS ORDERED: CARVEDILOL 3.125 MG TAB PO ONE (12:15)
--- NOTE | 2019-03-12 12:45 | NUR ---
Lunch tray provided. Her girlfriend at the bedside, patient felt better, would like to eat now. On O2 NC 3 LPM, Sitting at the edge of the bed for having Lunch.
[2019-03-12] MEDS: PARoxetine 20 MG TAB PO SCH (12:46)
[2019-03-12] MEDS: NICOTINE 14 MG/24HR TOPICAL PATCH TD SCH (12:46)
[2019-03-12] MEDS: FAMOTIDINE 20 MG TAB PO SCH ×2 (12:46→21:40)
[2019-03-12] MEDS: ASPirin 81 mg TAB PO SCH (12:46)
[2019-03-12] MEDS ORDERED: DIGOXIN (250MCG/ML) 2 ML AMPULE IV ONE ×2 (15:00→17:00)
--- NOTE | 2019-03-12 15:05 | NUR ---
Patient lying on the bed, made aware about the plan of care, Digoxin given as order, HR 115, BP 116/72 mmHg, will continue to monitor for HR. Her girlfriend at the bedside, made aware.
[2019-03-12 15:50] VITALS: BP 135/80
--- NOTE | 2019-03-12 15:58 | NUR ---
Patient still sleeping, EKG showing A. Flutter HR 115 /min, on O2 NC 3 LPM, O2 saturation around 94-95%, sometimes when room air her saturation around 82-84%.
[2019-03-12] MEDS: RIVAROXABAN 20 MG TAB PO SCH (17:38)
--- NOTE | 2019-03-12 18:30 | NUR ---
After Digoxin second dose given, HR 75-90 /min with A. flutter. BP 116/81 mmHg, still on O3 NC 3 LPM, RR 22 /min, O2 saturation 92-94%, Lung sounds clear. Will continue to monitor and care.
--- NOTE | 2019-03-12 19:05 | NUR ---
OPENING SHIFT RECEIVED REPORT FROM DAY SHIFT RN. ASSUMED CARE OF PATIENT. PATIENT IN BED WITH GIRLFRIEND AT BEDSIDE. CURRENTLY ON 3L 02 NASAL CANULA, 02 SAT - 93%. LEFT AND RIGHT FOREARM IV - CLEAN/DRY/INTACT. UPDATED PATIENT ON PLAN OF CARE. BED IN LOWEST POSITION, SIDE RAILS UP X2, CALL LIGHT WITHIN REACH. WILL CONTINUE TO MONITOR.
[2019-03-12 19:39] VITALS: BP 106/54
[2019-03-12] MEDS: HYDROcodone-ACET 5/325MG TAB PO PRN (21:39)
[2019-03-12] MEDS: ATORVASTATIN 20 MG TAB PO SCH (21:40)
[2019-03-12] MEDS: CARVEDILOL 3.125 MG TAB PO SCH (21:40)
[2019-03-12] MEDS: INSULIN LANTUS (GLARGINE) 1 /0.01ml (100units/ml) SC SCH (21:41)
--- NOTE | 2019-03-12 23:15 | NUR ---
ROUNDS PATIENT IN BED WATCHING TV WITH NO SIGNS OR SYMPTOMS OF SOB, PAIN OR DISTRESS. CURRENTLY ON 3L 02 NASAL CANULA, 02 SAT - 978%. REPOSITIONED FOR COMFORT. BED IN LOWEST POSITION, SIDE RAILS UP X2, CALL LIGHT WITHIN REACH. WILL CONTINUE TO MONITOR.
[2019-03-13] VITALS (7 sets, daily range): BP systolic 115–161; BP diastolic 54–92
--- NOTE | 2019-03-13 01:25 | NUR ---
HAT PLACED IN TOILET TO MONITOR URINE OUTPUT. PATIENT CONTINUES TO REMOVE HAT AND PLACE IT ON THE FLOOR WHEN USING THE RESTROOM. EDUCATED PATIENT ON STRICT INTAKE AND OUTPUT. WILL CONTINUE TO ENDORSE THE USE OF THE HAT FOR ACCURATE MEASUREMENT OF URINE OUTPUT.
--- NOTE | 2019-03-13 02:55 | NUR ---
ROUNDS PATIENT IN BED SLEEPING WITH NO SIGNS OR SYMPTOMS OF SOB, PAIN OR DISTRESS. CURRENTLY ON 3L 02 NASAL CANULA, 02 SAT - 96%. REPOSITIONED FOR COMFORT. BED IN LOWEST POSITION, SIDE RAILS UP X2, CALL LIGHT WITHIN REACH. WILL CONTINUE TO MONITOR.
--- NOTE | 2019-03-13 03:25 | NUR ---
MORNING CARE PATIENT REFUSED MORNING CARE AND REFUSED GOWN CHANGE AT THIS TIME. PARTIAL LINEN CHANGE. REPOSITIONED FOR COMFORT. BED IN LOWEST POSITION, SIDE RAILS UP X2, CALL LIGHT WITHIN REACH. WILL CONTINUE TO MONITOR.
[2019-03-13] MEDS: DILTIAZEM HCL 60 MG TAB PO SCH ×3 (05:45→22:11)
[2019-03-13] MEDS: LEVOTHYROXINE SODIUM 50 MCG TAB PO SCH (05:46)
[2019-03-13] MEDS: CARBIDOPA W LEVODOPA 25/100mg TABLET PO SCH ×3 (05:48→22:12)
[2019-03-13] MEDS: GABAPENTIN 300 MG CAP PO SCH ×3 (05:48→22:09)
[2019-03-13] MEDS: MEROPENEM 1GM IVPB 100 ML IV SCH ×3 (05:49→22:00)
--- NOTE | 2019-03-13 06:36 | NUR ---
END OF SHIFT PATIENT SLEEPING IN BED WITH NO SIGNS OR SYMPTOMS OF SOB, PAIN OR DISTRESS. CURRENTLY ON 2L 02 NASAL CANULA, 02 SAT - 96%. REPOSITIONED FOR COMFORT. BED IN LOWEST POSITION, SIDE RAILS UP X2, CALL LIGHT WITHIN REACH. WILL ENDORSE CARE TO DAY SHIFT RN.
[2019-03-13] MEDS: INSULIN LISPRO (HUMAN) 100 UNITS/ML ML SC SCH ×3 (07:04→17:48)
[2019-03-13] MEDS: ACCU-CHEK COMFORT CURVE STRIP VI SCH ×4 (07:04→22:24)
[2019-03-13] MEDS: InsuLIN REG 1unit/0.01ml Soln (100units/ml) SC SCH ×4 (07:04→22:42)
--- NOTE | 2019-03-13 08:00 | NUR ---
Opening Shift Note Assumed care of patient, awake and alert. Patient A&Ox4. Patient on 3L NC saturation at 96%. IV left forearm 20G running antibiotics and right forearm 20G saline locked, both IV's patent, clean, dry, and intact. No S/S of distress/SOB or pain. Bed locked and in the lowest position, side rails up x2, call light with in reach. Instructed on POC and to call for assist PRN. Will continue to monitor.
[2019-03-13] MEDS ORDERED: ADENOSINE 122 MG in GIVE UN-DILUTED 0 ML IV STA (08:42)
--- NOTE | 2019-03-13 09:30 | NUR ---
Patient taken to Stress lab.
[2019-03-13] MEDS: FAMOTIDINE 20 MG TAB PO SCH ×2 (09:44→22:13)
[2019-03-13] MEDS: ASPirin 81 mg TAB PO SCH (09:44)
[2019-03-13] MEDS: NICOTINE 14 MG/24HR TOPICAL PATCH TD SCH (09:44)
[2019-03-13] MEDS: PARoxetine 20 MG TAB PO SCH (09:44)
[2019-03-13] MEDS: HYDROcodone-ACET 5/325MG TAB PO PRN (09:44)
[2019-03-13] MEDS: VANCOMYCIN 1,250 MG in D5W 5% 250 ML IV SCH ×2 (09:45→21:10)
--- NOTE | 2019-03-13 09:45 | NUR ---
Dr. Greenberg at [facility]. Addendum: 03/13/19 at 1659 by Nori Calero RN Wrong time [id number]
--- NOTE | 2019-03-13 10:30 | NUR ---
Patient back from Stress lab.
--- NOTE | 2019-03-13 11:00 | NUR ---
Medication dosages, usages, and side effects explained to patient. Patient verbalized understanding. Will continue to monitor.
--- NOTE | 2019-03-13 12:08 | NUR ---
Nutrition Follow-up Notes Wt.: 145.0 kg Pt was sleeping with no family by bedside. per records pt with sepsis due to wounds. pt to have angiogram. pt with no distress noted. pt is currently on 2 gm na diet with adequate PO > 75% x 4 per RN doc Est. Needs: 1850 kcal to 2550 kcal (13-18 kcal/kgBW), 61 gms to 79 gms pro (1.0-1.3 gms/kgIBW d/t severe hypoalbuminemia, elev. renal labs). Will continue to monitor pertinent labs and reassess nutrient need prn Labs: GLU 115 H, CA 8.3 L, Skin: Kam scale 21, low risk pt with fissure on toe per property management coordinator. GI: Pt had 2 BM today per property management coordinator. PES: Altered nutrition related lab values r/t acute/chronic medical condition aeb hyperglycemia, hyponatremia,elev. renal labs, hypocalcemia and severe hypoalbuminemia. obesity r/t excessive PO intake aeb 232% IBW, BMI 49.1 kg/m2 and increased body adiposity Will continue to monitor PO intake, skin status, pertinent labs and weight trend. F/u in 3-5 days. Rec.: 1.) Consider Consistent Standard Carb: 60 gms/meal diet. 2.) If Albumin level continues trending down with improved renal labs, consider Prostat 1 pkt BID. 3.) Consider daily MVI with minerals and Asc acid 500 mgs BID prn.4.) Continue close supervision with meals 5.) Refer to CDE/RD for further nutrition education and weight monitoring upon discharged. 6.) Continue current plan of care.
[2019-03-13] MEDS: DIGOXIN (250MCG/ML) 2 ML AMPULE IV SCH (12:27)
[2019-03-13] MEDS: CARVEDILOL 3.125 MG TAB PO SCH ×2 (12:28→22:14)
--- NOTE | 2019-03-13 12:30 | NUR ---
Patient sitting up in bed eating lunch. Will continue to monitor.
--- NOTE | 2019-03-13 12:30 | NUR ---
IV left forearm 20G infiltrated. IV catheter intact upon removal, pressure dressing placed.
--- NOTE | 2019-03-13 15:00 | NUR ---
IV right forearm 20G infiltrated. IV catheter intact upon removal, pressure dressing placed. New IV placed right forearm 20G running antibiotics. IV patent, clean, dry, and intact.
[2019-03-13] MEDS: FLUCONAZOLE 200MG/100ML 100 ML IV SCH (15:17)
--- NOTE | 2019-03-13 15:45 | NUR ---
Patient going to room 286A. Report given to Bibi GARCIA. Patient on tele box HC 18.
--- NOTE | 2019-03-13 16:15 | NUR ---
Patient taken to room 286A via wheel chair by myself and Harleen LEBRON. All belongings taken with the patient. No S/S of pain/SOB or distress during transfer. RADHA Mtz notified of patient arrival.
[2019-03-13] MEDS: RIVAROXABAN 20 MG TAB PO SCH (17:51)
--- NOTE | 2019-03-13 19:05 | NUR ---
OPEN SHIFT NOTE PATIENT IS ALERT AND ORIENTED X4, DAUGHTER IS AT BEDSIDE. 20 GAUGE IV IN THE RIGHT FOREARM IS INTACT AND PATENT. NO COMPLAINTS OF PAIN AT THIS TIME. POC DISCUSSED AND QUESTIONS ANSWERED. BED IS LOCKED IN LOWEST POSITION. CALL LIGHT IS WITHIN REACH AND ENCOURAGED TO CALL IF NEEDS ANYTHING. WILL CONTINUE TO ROUND Q1HR AND PRN.
[2019-03-13] MEDS: ATORVASTATIN 20 MG TAB PO SCH (22:12)
[2019-03-13] MEDS: INSULIN LANTUS (GLARGINE) 1 /0.01ml (100units/ml) SC SCH (22:42)
[2019-03-14] MEDS: HYDROcodone-ACET 5/325MG TAB PO PRN ×2 (03:42→13:39)
[2019-03-14 04:58] VITALS: BP 125/73
[2019-03-14] MEDS: MEROPENEM 1GM IVPB 100 ML IV SCH ×2 (05:57→14:47)
[2019-03-14] MEDS: DILTIAZEM HCL 60 MG TAB PO SCH ×3 (05:58→22:47)
[2019-03-14] MEDS: GABAPENTIN 300 MG CAP PO SCH ×3 (05:58→22:48)
[2019-03-14] MEDS: CARBIDOPA W LEVODOPA 25/100mg TABLET PO SCH ×3 (05:58→22:49)
[2019-03-14] MEDS: INSULIN LISPRO (HUMAN) 100 UNITS/ML ML SC SCH ×3 (06:54→17:00)
[2019-03-14] MEDS: InsuLIN REG 1unit/0.01ml Soln (100units/ml) SC SCH ×4 (06:54→23:12)
[2019-03-14] MEDS: LEVOTHYROXINE SODIUM 50 MCG TAB PO SCH (06:54)
[2019-03-14] MEDS: ACCU-CHEK COMFORT CURVE STRIP VI SCH ×4 (06:55→22:49)
[2019-03-14 08:00] VITALS: BP 128/75
--- NOTE | 2019-03-14 08:00 | NUR ---
Opening Shift Note Assumed care of patient, awake, alert and oriented X4. No S/S of distress/SOB or pain. Tele# 18, Atrial Fibrillation @ 120 bpm. IV to right hand, 20 gauge, patent and saline locked. Right perianal abscess draining serosanguineous drainage, open to air, see wound care notes and photos. Instructed on POC and to call for assist PRN, verbalized understanding. Bed locked, in lowest position, call light within reach, will continue to monitor for changes Q1hr and PRN.
--- NOTE | 2019-03-14 09:15 | NUR ---
FADUMO GRACE states they want to leave the floor Against Medical Advice (AMA) to go outside and smoke. Patient encouraged to stay on floor and not smoke. Patient advised of the risks and benefits of leaving AMA. Patient verbalized understanding and signed required AMA form.
[2019-03-14] MEDS: NICOTINE 14 MG/24HR TOPICAL PATCH TD SCH (10:00)
--- NOTE | 2019-03-14 10:00 | NUR ---
Patient still off floor smoking, has been gone for over 30 minutes. Notified security, verbalized they will go down and check.
--- NOTE | 2019-03-14 10:30 | NUR ---
Notified RADHA Niño, charge nurse that patient has been off floor "smoking" for over an hour now and security has been notified. Awaiting security to update on patient whereabouts.
--- NOTE | 2019-03-14 10:45 | NUR ---
RADHA Niño, charge nurse and [employer] student nurse went down to locate patient, security has not updated on patient whereabouts.
--- NOTE | 2019-03-14 10:48 | NUR ---
Patient returned form AMA smoking with [place] RN, charge nurse and [employer] student nurse. No distress noted upon return. Patient educated on policy and to return within 30 minutes of leaving floor, verbalized understanding.
[2019-03-14] MEDS: DIGOXIN (250MCG/ML) 2 ML AMPULE IV SCH (11:21)
[2019-03-14] MEDS: VANCOMYCIN 1,250 MG in D5W 5% 250 ML IV SCH ×2 (11:21→21:40)
[2019-03-14] MEDS: ASPirin 81 mg TAB PO SCH (11:21)
[2019-03-14] MEDS: FAMOTIDINE 20 MG TAB PO SCH ×2 (11:22→22:49)
[2019-03-14] MEDS: PARoxetine 20 MG TAB PO SCH (11:22)
[2019-03-14] MEDS: CARVEDILOL 3.125 MG TAB PO SCH ×2 (11:22→22:48)
[2019-03-14 12:00] VITALS: BP 147/84
--- NOTE | 2019-03-14 13:39 | NUR ---
Patient stated her buttock area hurts, pain level at 7 and a half at this time. [place] 5/325 PO given for pain as ordered.
[2019-03-14] MEDS: FLUCONAZOLE 200MG/100ML 100 ML IV SCH (14:01)
--- NOTE | 2019-03-14 14:05 | NUR ---
ROUNDS Dr Greenberg at bedside for rounds, patient updated on plan of care, verbalized understanding.
[2019-03-14 16:00] VITALS: BP 141/80
[2019-03-14] MEDS: RIVAROXABAN 20 MG TAB PO SCH (18:12)
--- NOTE | 2019-03-14 19:28 | NUR ---
Care endorsed to RADHA Tesfaye, night nurse.
--- NOTE | 2019-03-14 21:27 | NUR ---
dr hoffmann came in to see patient, she is not in room, went down stairs to smoke. Dr hoffmann stated he will do surgery tomorrow.
[2019-03-14 22:00] VITALS: BP 119/75
[2019-03-14] MEDS ORDERED: CARVEDILOL 3.125 MG TAB PO SCH (22:00)
[2019-03-14] MEDS: ATORVASTATIN 20 MG TAB PO SCH (22:48)
[2019-03-14] MEDS: INSULIN LANTUS (GLARGINE) 1 /0.01ml (100units/ml) SC SCH (23:11)
[2019-03-15] MEDS: MEROPENEM 1GM IVPB 100 ML IV SCH ×4 (00:49→23:08)
[2019-03-15 06:00] VITALS: BP 122/58
[2019-03-15] MEDS: DILTIAZEM HCL 60 MG TAB PO SCH ×3 (06:02→22:48)
[2019-03-15] MEDS: LEVOTHYROXINE SODIUM 50 MCG TAB PO SCH (06:03)
[2019-03-15] MEDS: CARBIDOPA W LEVODOPA 25/100mg TABLET PO SCH ×3 (06:03→22:50)
[2019-03-15] MEDS: GABAPENTIN 300 MG CAP PO SCH ×3 (06:03→22:48)
[2019-03-15 06:17] LABS: Basophils # (auto) 0.1 uL; Basophils % (auto) 0.9 % (0.0-2.0); Eosinophils # (auto) 0.4 uL; Eosinophils % (auto) 3.7 % (0.0-7.0); Hematocrit 38.2 % (36.0-46.0); Hemoglobin 12.5 g/dL (12.2-16.2); Lymphocytes # (auto) 2.9 uL; Lymphocytes % (auto) 29.8 % (10.0-50.0); Mean Corpuscular Hgb Conc. 32.8 g/dL (32.0-36.0); Mean Corpuscular Volume 94.4 fL (80.0-100.0); Monocytes # (auto) 1.2 uL; Monocytes % (auto) 12.1 % (0.0-12.0); Neutrophils # (auto) 5.3 uL; Neutrophils % (auto) 53.5 % (37.0-80.0); Platelet Count (auto) 297 10^3/uL (140-450); Red Blood Cells 4.04 10^6/uL (4.0-5.20); Red Cell Distribution Width 15.4 % (11.8-14.3); White Blood Cell 9.9 10^3/uL (4.4-10.8)
[2019-03-15 06:42] LABS: Chloride 104 mmol/L (98-107); Potassium 3.6 mmol/L (3.5-5.1); Sodium 140 mmol/L (136-145)
[2019-03-15 06:50] LABS: Alanine Aminotransferase < 6 U/L (13-56); Albumin 2.3 g/dL (3.4-5.0); Alkaline Phosphatase 104 U/L (45-117); Anion Gap 6 (5-15); Aspartate Aminotransferase 19 U/L (15-37); BUN/Creatinine Ratio 13.7; Bilirubin, Total 0.3 mg/dL (0.2-1.0); Blood Urea Nitrogen 10 mg/dL (7-18); Calcium 8.8 mg/dL (8.5-10.1); Carbon Dioxide 30 mmol/L (21-32); GFR African American 106 mL/min; GFR Non-African American 88 mL/min; Glucose 159 mg/dL (74-106); Total Protein 7.2 g/dL (6.4-8.2)
[2019-03-15] MEDS: InsuLIN REG 1unit/0.01ml Soln (100units/ml) SC SCH ×4 (07:00→22:00)
[2019-03-15] MEDS: INSULIN LISPRO (HUMAN) 100 UNITS/ML ML SC SCH ×3 (07:00→16:55)
[2019-03-15] MEDS: ACCU-CHEK COMFORT CURVE STRIP VI SCH ×4 (07:20→23:10)
--- NOTE | 2019-03-15 08:00 | NUR ---
Opening Shift Note Assumed care of patient, awake, alert and oriented X4. No S/S of distress/SOB or pain. Tele# 18, Atrial Fibrillation @ 107 bpm. IV to right hand, 20 gauge, patent and saline locked. Right perianal abscess draining serosanguineous drainage, open to air. Instructed on POC and to call for assist PRN, verbalized understanding. Bed locked, in lowest position, call light within reach, will continue to monitor for changes Q1hr and PRN.
[2019-03-15 08:51] VITALS: BP 137/62
[2019-03-15] MEDS: FAMOTIDINE 20 MG TAB PO SCH ×2 (10:00→22:49)
[2019-03-15] MEDS: ASPirin 81 mg TAB PO SCH (10:00)
[2019-03-15] MEDS: NICOTINE 14 MG/24HR TOPICAL PATCH TD SCH (10:00)
[2019-03-15] MEDS: DIGOXIN (250MCG/ML) 2 ML AMPULE IV SCH (10:04)
[2019-03-15] MEDS: FLUCONAZOLE 200MG/100ML 100 ML IV SCH (10:04)
[2019-03-15] MEDS: VANCOMYCIN 1,250 MG in D5W 5% 250 ML IV SCH ×2 (10:04→21:08)
[2019-03-15] MEDS: CARVEDILOL 3.125 MG TAB PO SCH ×2 (10:05→22:49)
[2019-03-15] MEDS: LISINOPRIL 5 MG TAB PO SCH (10:06)
[2019-03-15] MEDS: PARoxetine 20 MG TAB PO SCH (10:06)
[2019-03-15 12:52] VITALS: BP 94/51
--- NOTE | 2019-03-15 13:02 | NUR ---
Per Dr Greenberg, all in house ordered medications called into [facility] for outpatient use upon discharge 03/16/2019.
[2019-03-15] MEDS ORDERED: ceFAZolin 1GM VL ONE (13:37)
--- NOTE | 2019-03-15 16:42 | NUR ---
re-assessment Per consult SNF placement for wound vac for 5 days and med management. MD order has been sent to [facility] and [facility]. Waiting for reply back now. Addendum: 03/15/19 at 1644 by Manasa Hanna Amended: Links added.
--- NOTE | 2019-03-15 16:51 | NUR ---
WOUND CARE RADHA Luna, wound care nurse at bedside placing wound vac on patient.
--- NOTE | 2019-03-15 16:51 | NUR ---
RX All medications called into [facility] delivered to patient at bedside.
--- NOTE | 2019-03-15 17:22 | NUR ---
WOUND CARE NOTE: Wound care in to see patient per Dr. Michel's order to apply wound vacc to patient's R buttock wound. Patient is resting in bed in in Rm. 286A. She's awake,alert and oriented. She's able to move, turn and reposition self. Her current Kam score is 15.Patient's education given regarding NPWT. Patient's Rt buttock has 2x3x1.5cm open wound, draining abscess. Per RADHA Khan's report, patient brought patient to preop, assess the wound and ordered to apply wound vac now. patient's Rt buttock wound is red with bright red, indurated, nancy wound, minimal serosanguineous drainage noted on dressing, no odor noted. Cleansed patient's wound with wound cleanser, patted dry with sterile gauze, applied skin protectant to nancy wound. Photograph of wound are taken for reference. Applied transparent dressing along nancy wound to Rt anterolateral thigh to protect skin in bridging. Pack wound cavity with one piece black granu foam dressing and run foam dressing towards anterolateral thigh. Secured foam dressing with transparent drape. Applied trac pad on hole. Connected tubings. Run wound vac at 125 mmHg continuos per MD order. Good suction noted, with good seal, no leak detected. Patient tolerated well. Repositioned patient for comfort. RECOMMENDATION: Dressing change to R buttock wound per MD order, continuation of all other wound care orders prescribed by MD,continue monitoring by wound care while patient is hospitalized. Addendum: 03/15/19 at 1956 by Cheryl Alfredo RN Amended: Links added.
[2019-03-15 18:01] VITALS: BP 116/61
--- NOTE | 2019-03-15 18:45 | NUR ---
IV removal IV DC'd to right forearm with clean sterile technique, catheter fully intact. Pressure dressing applied to site. Patient tolerated well. IV insertion IV access obtained, via clean sterile technique by inserting 20 gauge catheter at right upper arm after 1 attempt.IV secured properly. No trauma to site. Patient tolerated well.
--- NOTE | 2019-03-15 19:15 | NUR ---
Opening Shift Note Assumed care of patient, awake and alert. No S/S of distress/SOB. Patient states that she is having slight right buttocks pain due to the abscess but does not request any pain medication. Instructed on POC and to call for assist PRN, will continue to monitor for changes Q1hr and PRN.
--- NOTE | 2019-03-15 19:28 | NUR ---
Care endorsed to RADHA Singh, night nurse.
[2019-03-15] MEDS: RIVAROXABAN 20 MG TAB PO SCH (19:29)
--- NOTE | 2019-03-15 19:45 | NUR ---
WOUND VAC SEAL LEAK The patient states that the seal from the dressing broke after sitting down on the toilet. Upon assessment of dressing, the tegaderm was rolled up. Will remove previous tegaderm and place new tegaderm to restore seal.
--- NOTE | 2019-03-15 20:20 | NUR ---
WOUND VAC DRESSING CHANGE Old tegaderm has been removed and new tegaderm has been placed. Dressing is leak free. Wound vac therapy has been restarted.
--- NOTE | 2019-03-15 21:10 | NUR ---
Patient has left the floor to smoke cigarettes. The patient has been educated about leaving the floor to smoke. The patient verbalized her understanding.
--- NOTE | 2019-03-15 21:38 | NUR ---
Patient has returned from AMA smoking with significant other. No distress noted upon return.
[2019-03-15 22:00] VITALS: BP 129/80
--- NOTE | 2019-03-15 22:45 | NUR ---
The patient states that she is having bilateral hand pain with a severity of 7/10. She request PRN pain medication. Will administer PRN [place] as ordered.
[2019-03-15] MEDS: ATORVASTATIN 20 MG TAB PO SCH (22:48)
[2019-03-15] MEDS: INSULIN LANTUS (GLARGINE) 1 /0.01ml (100units/ml) SC SCH (22:51)
[2019-03-15] MEDS: HYDROcodone-ACET 5/325MG TAB PO PRN (23:03)
--- NOTE | 2019-03-15 23:10 | NUR ---
The patient started complaining of severe right buttocks pain after trying to get up to use the bathroom. She states that "it feels like I'm sitting on a basketball". The patient began to cry and stated that she wanted to remove the wound vac. The patient was educated on the risks of removing the wound vac. Patient verbalized understanding.
--- NOTE | 2019-03-15 23:35 | NUR ---
WOUND VAC DRESSING REMOVED Dressing has been removed and wound has been cleansed. The patient refused having optifoam placed because she states that the dressing would "rub against her skin" causing discomfort.
[2019-03-16] MEDS: HYDROcodone-ACET 5/325MG TAB PO PRN ×2 (04:37→19:46)
[2019-03-16 05:00] VITALS: BP 119/66
[2019-03-16] MEDS: MEROPENEM 1GM IVPB 100 ML IV SCH ×3 (06:02→22:16)
[2019-03-16] MEDS: GABAPENTIN 300 MG CAP PO SCH ×3 (06:02→22:16)
[2019-03-16] MEDS: DILTIAZEM HCL 60 MG TAB PO SCH ×3 (06:03→22:17)
[2019-03-16] MEDS: CARBIDOPA W LEVODOPA 25/100mg TABLET PO SCH ×3 (06:04→22:16)
[2019-03-16] MEDS: LEVOTHYROXINE SODIUM 50 MCG TAB PO SCH (06:25)
[2019-03-16] MEDS: INSULIN LISPRO (HUMAN) 100 UNITS/ML ML SC SCH ×3 (06:31→17:00)
[2019-03-16] MEDS: InsuLIN REG 1unit/0.01ml Soln (100units/ml) SC SCH ×4 (06:32→22:30)
[2019-03-16] MEDS: ACCU-CHEK COMFORT CURVE STRIP VI SCH ×3 (06:32→17:04)
--- NOTE | 2019-03-16 07:45 | NUR ---
Care has been endorse to Erin GARCIA.
--- NOTE | 2019-03-16 08:00 | NUR ---
Opening Shift Note Assumed care of patient, awake, alert and oriented X4. No S/S of distress/SOB or pain. Tele# 18, Atrial Flutter @ 106 bpm. Iv to right upper arm, 20 gauge, patent and saline locked. Wound Vac off at this time, per night nurse, Francisco, he attempted to replace after patient went to the bathroom and dressing came off but was unable to get a good seal. Right perianal abscess open to air, draining minimal serosanguineous drainage. Instructed on POC and to call for assist PRN, verbalized understanding. bed locked, in lowest position, call light within reach, will continue to monitor for changes Q1hr and PRN.
[2019-03-16 08:52] VITALS: BP 127/80
[2019-03-16] MEDS: VANCOMYCIN 1,250 MG in D5W 5% 250 ML IV SCH ×2 (09:33→21:12)
[2019-03-16] MEDS: ASPirin 81 mg TAB PO SCH (09:54)
[2019-03-16] MEDS: FAMOTIDINE 20 MG TAB PO SCH ×2 (09:55→22:16)
[2019-03-16] MEDS: PARoxetine 20 MG TAB PO SCH (09:55)
[2019-03-16] MEDS: CARVEDILOL 3.125 MG TAB PO SCH ×2 (09:55→22:17)
[2019-03-16] MEDS: LISINOPRIL 5 MG TAB PO SCH (09:55)
[2019-03-16] MEDS: DIGOXIN 0.125 MG TAB PO SCH (09:55)
[2019-03-16] MEDS: NICOTINE 14 MG/24HR TOPICAL PATCH TD SCH (09:56)
--- NOTE | 2019-03-16 09:57 | NUR ---
o/c note: Dr. Greenberg called and raven pt to go to [facility]. will care RN to let know what paperwork to fax
--- NOTE | 2019-03-16 10:15 | NUR ---
Informed that pt is refusing to go to snf and that wd vac pt has is the hospitals and that it will be difficult to get wd vac this weekend since snf cannot provide wd vac. I talked with Erin ruvalcaba RN and told her what I told . I will hold off on thransfer until I have more information. Erin to talk to wd care RN to see if we can order wd vac if pt really needs it.
--- NOTE | 2019-03-16 11:10 | NUR ---
WOUND CARE NOTE: New wound care request received regarding " patient refuses wound vacc. Wound vac dressing placed yesterday to patient's Rt gluteal wound with good seal. Patient's wound care education provided at that time. Used 50 minutes for dressing application and wound education. Reminded patient that wound healing requires patient's active participation in care. Educated also with the effects of smoking in wound healing. Patient replied "I Know". On bus system operator nurse's reports, that patient complaints of pain in gluteal area, asked to have wound vac dressing removed. Patient continue resting in bed in in Rm. 286A. Her eyes are closed, open eyes on verbal and tactile stimuli. Wound vac is not connected to patient. Canister has 50mL serous drainage. Patient wont keep up with conversation, will answer one or two words, when asked why she requested the night nurse to have wound vac removed. She replied " I don't want it!" and goes back to sleep. Informed patient that the other option is daily packing. Patient did not say anything and shows no concern for treatment of her wound. RADHA Khan made aware of patient's nonadherent to plan of care. Will follow up with MD.
--- NOTE | 2019-03-16 12:15 | NUR ---
ROUNDS Dr Greenberg at bedside for rounds, new orders received and followed through. Patient updated on plan of care, verbalized understanding, continue care.
[2019-03-16] MEDS: FLUCONAZOLE 200MG/100ML 100 ML IV SCH (12:25)
--- NOTE | 2019-03-16 12:37 | NUR ---
Nutrition Follow-up Notes Wt.: 147.8 kg Pt was sleeping with no family by bedside. per records pt with sepsis s/p I&D for wounds. pt with no distress noted. pt is currently on CCHO 60 g/meal diet with inadequate PO 50% x 4 per RN doc Est. Needs: 1850 kcal to 2550 kcal (13-18 kcal/kgBW), 61 gms to 79 gms pro (1.0-1.3 gms/kgIBW d/t severe hypoalbuminemia, elev. renal labs). Will continue to monitor pertinent labs and reassess nutrient need prn Labs: GLU 159 H, ALB 2.3 L. Skin: Kam scale 19, low risk pt with fissure on toe s/p sx per air transport professionals. GI: Pt had 1 BM today per air transport professionals. PES: Altered nutrition related lab values r/t acute/chronic medical condition aeb hyperglycemia, hyponatremia,elev. renal labs, hypocalcemia and severe hypoalbuminemia. obesity r/t excessive PO intake aeb 232% IBW, BMI 49.1 kg/m2 and increased body adiposity Will continue to monitor PO intake, skin status, pertinent labs and weight trend. F/u in 3-5 days. Rec.: 1.) If Albumin level continues trending down with improved renal labs, consider Prostat 1 pkt BID. 2 .) Consider daily MVI with minerals and Asc acid 500 mgs BID prn. 3.) Continue close supervision with meals 4.) Refer to CDE/RD for further nutrition education and weight monitoring upon discharged. 5.) Continue current plan of care.
[2019-03-16 13:32] VITALS: BP 109/63
--- NOTE | 2019-03-16 14:10 | NUR ---
SURGICAL Message left with Dr Wesley Michel, waiting for return call to notify that prescribed wound vac is not working, unable to get a proper seal, patient now refusing to wear. Dr Greenberg aware, awaiting return call.
--- NOTE | 2019-03-16 15:32 | NUR ---
o/c note; I called [facility] to see if they can do HH for pt, await call back
--- NOTE | 2019-03-16 16:29 | NUR ---
o/c note: Nicho has yet to get back to me. I called Kelle at [facility] and they have accepted pt. I informed Erin ruvalcaba Rn to fax hh packet to [facility] and [facility] and to write on [facility] cover sheet for [facility] to send auth to [facility]
--- NOTE | 2019-03-16 16:45 | NUR ---
Requested documents faxed to [facility] and [facility] per RADHA Montgomery, Public Relations Supervisor request.
[2019-03-16 17:00] VITALS: BP 126/72
[2019-03-16] MEDS: RIVAROXABAN 20 MG TAB PO SCH (17:05)
--- NOTE | 2019-03-16 19:00 | NUR ---
Care endorsed to RADHA Singh, night nurse.
--- NOTE | 2019-03-16 19:20 | NUR ---
Opening Shift Note Assumed care of patient, awake and alert. No S/S of distress/SOB. Instructed on POC and to call for assist PRN, will continue to monitor for changes Q1hr and PRN.
--- NOTE | 2019-03-16 21:25 | NUR ---
Patient has left the floor to smoke cigarettes. The patient has been educated about leaving the floor to smoke. The patient verbalized her understanding.
--- NOTE | 2019-03-16 21:50 | NUR ---
The patient has returned to her room. No distress has been noted.
[2019-03-16 22:05] VITALS: BP 146/80
[2019-03-16] MEDS: ATORVASTATIN 20 MG TAB PO SCH (22:16)
[2019-03-16] MEDS: INSULIN LANTUS (GLARGINE) 1 /0.01ml (100units/ml) SC SCH (22:30)
[2019-03-17 05:30] VITALS: BP 118/65
[2019-03-17 05:52] LABS: Basophils # (auto) 0.1 uL; Eosinophils # (auto) 0.3 uL; Eosinophils % (auto) 3.1 % (0.0-7.0); Hematocrit 39.9 % (36.0-46.0); Hemoglobin 13.3 g/dL (12.2-16.2); Lymphocytes # (auto) 3.7 uL; Lymphocytes % (auto) 35.7 % (10.0-50.0); Mean Corpuscular Hemoglobin 31.5 pg (28.0-32.0); Mean Corpuscular Hgb Conc. 33.4 g/dL (32.0-36.0); Mean Corpuscular Volume 94.2 fL (80.0-100.0); Monocytes % (auto) 9.6 % (0.0-12.0); Neutrophils # (auto) 5.3 uL; Neutrophils % (auto) 50.6 % (37.0-80.0); Nucleated Red Blood Cells % 0.1 %; Platelet Count (auto) 348 10^3/uL (140-450); Red Blood Cells 4.23 10^6/uL (4.0-5.20); Red Cell Distribution Width 15.7 % (11.8-14.3); White Blood Cell 10.4 10^3/uL (4.4-10.8)
[2019-03-17 06:05] LABS: Calcium 9.3 mg/dL (8.5-10.1); Potassium 3.8 mmol/L (3.5-5.1)
[2019-03-17] MEDS: MEROPENEM 1GM IVPB 100 ML IV SCH ×2 (06:07→14:00)
[2019-03-17] MEDS: GABAPENTIN 300 MG CAP PO SCH ×2 (06:07→15:58)
[2019-03-17] MEDS: LEVOTHYROXINE SODIUM 50 MCG TAB PO SCH (06:08)
[2019-03-17] MEDS: DILTIAZEM HCL 60 MG TAB PO SCH ×2 (06:08→15:58)
[2019-03-17] MEDS: CARBIDOPA W LEVODOPA 25/100mg TABLET PO SCH ×2 (06:08→15:58)
[2019-03-17] MEDS: ACCU-CHEK COMFORT CURVE STRIP VI SCH ×3 (06:10→12:28)
[2019-03-17] MEDS: INSULIN LISPRO (HUMAN) 100 UNITS/ML ML SC SCH ×2 (06:25→12:27)
[2019-03-17] MEDS: InsuLIN REG 1unit/0.01ml Soln (100units/ml) SC SCH ×2 (06:25→12:28)
--- NOTE | 2019-03-17 07:20 | NUR ---
CLOSING NOTE Care has been endorsed to Cyndy GARCIA.
--- NOTE | 2019-03-17 07:25 | NUR ---
Opening Shift Note Assumed care of patient, awake and alert. No S/S of distress/SOB or pain. Instructed on POC-possible discharge today once Home Health is set up. Patient informed to call for assist PRN, will continue to monitor for changes Q1hr and PRN.
[2019-03-17 09:18] VITALS: BP 137/83
--- NOTE | 2019-03-17 09:19 | NUR ---
Earle [facility] auth for [place] is [id number]
[2019-03-17] MEDS: DIGOXIN 0.125 MG TAB PO SCH (09:26)
[2019-03-17] MEDS: LISINOPRIL 5 MG TAB PO SCH (09:27)
[2019-03-17] MEDS: CARVEDILOL 3.125 MG TAB PO SCH (09:28)
[2019-03-17] MEDS: PARoxetine 20 MG TAB PO SCH (09:28)
[2019-03-17] MEDS: ASPirin 81 mg TAB PO SCH (09:28)
[2019-03-17] MEDS: FAMOTIDINE 20 MG TAB PO SCH (09:28)
[2019-03-17] MEDS: NICOTINE 14 MG/24HR TOPICAL PATCH TD SCH (09:28)
[2019-03-17] MEDS: VANCOMYCIN 1,250 MG in D5W 5% 250 ML IV SCH (09:29)
--- NOTE | 2019-03-17 09:45 | NUR ---
Dr. Greenberg and RN at bedside, discussed medication reconciliation and medication management with the patient. Patient provided detail information on the medication, its use, side effects. Patient encouraged to comply with medication regimen.
--- NOTE | 2019-03-17 10:05 | NUR ---
Asked Dr. Greenberg regarding the need to contact Dr. Michel for dressing on patient's perianal abscess. Per MD, RN may contact Dr. Michel but not really necessary to hold patient's discharge. Dr. Michel was contacted yesterday regarding this issue per Dr. Greenberg.
--- NOTE | 2019-03-17 11:36 | NUR ---
Instructed Cyndy to fax message to [facility] that pt is being d/c today and start of care will begin Monday
[2019-03-17] MEDS ORDERED: PAR20T PO (11:43)
[2019-03-17] MEDS ORDERED: DIL60T PO (11:43)
[2019-03-17] MEDS ORDERED: ATOR20TA50 PO (11:43)
[2019-03-17] MEDS ORDERED: DIGO0.1229 PO (11:43)
[2019-03-17] MEDS ORDERED: GABA300C10 PO (11:43)
[2019-03-17] MEDS ORDERED: RIV20T PO (11:43)
[2019-03-17] MEDS ORDERED: INSLISPI SC (11:43)
[2019-03-17] MEDS ORDERED: FAM20T PO (11:43)
[2019-03-17] MEDS ORDERED: ACE325T PO (11:43)
[2019-03-17] MEDS ORDERED: ASPI81CH43 PO (11:43)
[2019-03-17] MEDS ORDERED: LEV50T PO (11:43)
[2019-03-17] MEDS ORDERED: NIAC500T13 PO (11:43)
[2019-03-17] MEDS ORDERED: CAR25T PO (11:43)
[2019-03-17] MEDS ORDERED: LISI-275 PO (11:43)
[2019-03-17] MEDS ORDERED: CAR3125T PO (11:43)
[2019-03-17] MEDS ORDERED: INSLANTI SC (11:43)
[2019-03-17] MEDS: FLUCONAZOLE 200MG/100ML 100 ML IV SCH (12:27)
[2019-03-17 13:31] VITALS: BP_SYST 121; BP_SYST 137; BP_DIAS 74; BP_DIAS 83
--- NOTE | 2019-03-17 14:30 | NUR ---
Called Dr. Michel, left a message on Dr. Michel regarding order for dressing on patient's perianal area.
[2019-03-17 15:18] VITALS: BP 121/74
--- NOTE | 2019-03-17 16:50 | NUR ---
Discharge Discharge instructions given as ordered. Encourage to follow up with Primary MD, Cardiology and with Surgeon Dr. Michel as instructed. All questions and concerns addressed. Patient verbalized understanding. Medication reconciliation form completed and copy given to patient. Patient refused the pneumonia vaccine, MRSA swab and dressing change on perianal abscess. Discharge picture taken at perianal area for reference. Per patient's friend, the area looks much better. IV removed with catheter intact, pressure dressing applied. Telemetry unit returned to [facility]. Patient taken to vehicle via wheelchair with all personal belongings, accompanied by staff and family member. No distress noted at time of departure.
--- NOTE | 2019-03-17 17:34 | NUR ---
Faxed face sheet to fax # [phone], called number provided by Structural Steel Detailer Valentina, #: [phone], left a message regarding the fax sent to notify the agency of patient's discharge today and start of care tomorrow, Monday per Valentina's instruction.
== END 2019-03-17 19:10 | disposition home health service (06) | DRG 871 ==
LOC: ER 16:40 → TELE 16:41 → ICU WEST 03-07 03:45 → DOU IN ICU 03-09 17:32 → TELE-WESTW 03-13 16:21
PROVIDERS: ADMIT Nurse Practitioner; ATTEND Internal Medicine
DX: A41.9 Sepsis, unspecified organism (principal); N17.0 Acute kidney failure with tubular necrosis; E43 Unspecified severe protein-calorie malnutrition; I50.43 Acute on chronic combined systolic (congestive) and diastolic (congestive) heart failure; J96.00 Acute respiratory failure, unspecified whether with hypoxia or hypercapnia; K61.0 Anal abscess; E87.1 Hypo-osmolality and hyponatremia; L02.31 Cutaneous abscess of buttock; Z68.43 Body mass index [BMI] 50.0-59.9, adult; I48.92 Unspecified atrial flutter; E66.01 Morbid (severe) obesity due to excess calories; E11.65 Type 2 diabetes mellitus with hyperglycemia; E03.9 Hypothyroidism, unspecified; E86.0 Dehydration; F32.9 Major depressive disorder, single episode, unspecified; I10 Essential (primary) hypertension; I48.91 Unspecified atrial fibrillation; L02.93 Carbuncle, unspecified; I48.2 Chronic atrial fibrillation; N18.9 Chronic kidney disease, unspecified; E78.5 Hyperlipidemia, unspecified; F17.200 Nicotine dependence, unspecified, uncomplicated; I08.0 Rheumatic disorders of both mitral and aortic valves; I11.0 Hypertensive heart disease with heart failure; M53.3 Sacrococcygeal disorders, not elsewhere classified; Z79.899 Other long term (current) drug therapy; Z80.6 Family history of leukemia; K61.39 Other ischiorectal abscess; L02.33 Carbuncle of buttock; J45.909 Unspecified asthma, uncomplicated
CPT/HCPCS: 36415; 36600; 70450; 71045; 72192; 76775; 78452; 80048; 80053; 80061; 80162; 80202; 81001; 82010; 82043; 82140; 82570; 82607; 82746; 82805; 82962; 83036; 83605; 83735; 83880; 84156; 84300; 84439; 84443; 85025; 85610; 85730; 86850; 86900; 86901; 87040; 87081; 87086; 87205; 93005; 93017; 93306; 96361; 96365; 96367; 96375; G0378; J0153; J0690; J1450; J1815; J2185; J2405; J2543; J7060; Q9956

== ENCOUNTER 2019-08-31 02:35 | Emergency (ER) | payer OTHER, MEDICAID ==
[~2019-08-31] VITALS: Ht 175.3 cm; Wt 127.0 kg
[~2019-08-31 02:35] MED LIST: AMIO200T4 PO; ASPI81CH43 PO; ATOR20TA50 PO; CANA300T OR; CAR3125T PO; CARB25TA3 PO; GABA300C10 PO; LEV112T PO; METF-372 PO; PANT40T PO; PAR20T PO; RIV20T PO; SACU1TAB PO
[2019-08-31 07:13] LABS: Basophils # (auto) 0.2 uL; Basophils % (auto) 1.2 % (0.0-2.0); Eosinophils # (auto) 0.4 uL; Hematocrit 41.9 % (36.0-46.0); Hemoglobin 14.1 g/dL (12.2-16.2); Lymphocytes # (auto) 3.9 uL; Mean Corpuscular Hemoglobin 30.9 pg (28.0-32.0); Mean Corpuscular Hgb Conc. 33.6 g/dL (32.0-36.0); Mean Corpuscular Volume 91.8 fL (80.0-100.0); Monocytes # (auto) 0.8 uL; Monocytes % (auto) 5.9 % (0.0-12.0); Neutrophils # (auto) 8.2 uL; Neutrophils % (auto) 60.9 % (37.0-80.0); Nucleated Red Blood Cells % 0.1 %; Platelet Count (auto) 165 10^3/uL (140-450); Red Blood Cells 4.56 10^6/uL (4.0-5.20); Red Cell Distribution Width 15.8 % (11.8-14.3); White Blood Cell 13.4 10^3/uL (4.4-10.8)
[2019-08-31 07:42] LABS: Calcium 9.4 mg/dL (8.5-10.1); Chloride 108 mmol/L (98-107); Potassium 3.8 mmol/L (3.5-5.1); Sodium 141 mmol/L (136-145)
[2019-08-31] MEDS ORDERED: SODIUM CHLORIDE 0.9% 1,000 ML IV ONE (07:46)
[2019-08-31 07:47] LABS: Urine Bacteria FEW /hpf (None Seen); Urine Blood Negative /uL (Negative); Urine Specific Gravity 1.018 (1.001-1.035); Urine WBC <1 /hpf (0 - 5)
[2019-08-31 07:51] LABS: Alanine Aminotransferase 16 U/L (13-56); Albumin 3.4 g/dL (3.4-5.0); Alkaline Phosphatase 79 U/L (45-117); Anion Gap 8 (5-15); Aspartate Aminotransferase 14 U/L (15-37); Bilirubin, Total 0.5 mg/dL (0.2-1.0); Blood Urea Nitrogen 12 mg/dL (7-18); Carbon Dioxide 25 mmol/L (21-32); GFR African American 88 mL/min; GFR Non-African American 73 mL/min; Glucose 123 mg/dL (74-106); Total Protein 7.8 g/dL (6.4-8.2)
[2019-08-31] MEDS ORDERED: ASPirin 81 mg TAB PO ONE (08:00)
[2019-08-31 08:24] LABS: INR 1.45 (0.9-1.15); Partial Thromboplastin Time 41.9 sec (23.64-32.05)
[2019-08-31 11:55] VITALS: BP 111/55
== END 2019-08-31 12:10 | disposition home or self-care (01) ==
LOC: EDBD 02:35 → ER 02:41
DX: I48.92 Unspecified atrial flutter (principal); F41.9 Anxiety disorder, unspecified; E66.9 Obesity, unspecified; R81 Glycosuria; E11.9 Type 2 diabetes mellitus without complications; I11.0 Hypertensive heart disease with heart failure; I50.9 Heart failure, unspecified; E78.5 Hyperlipidemia, unspecified; K21.9 Gastro-esophageal reflux disease without esophagitis; I48.91 Unspecified atrial fibrillation; Z79.899 Other long term (current) drug therapy; Z88.6 Allergy status to analgesic agent; Z68.41 Body mass index [BMI] 40.0-44.9, adult
CPT/HCPCS: 36415; 71046; 80053; 81001; 82962; 83735; 84443; 84484; 85025; 85379; 85610; 85730; 96360; 96361; 99284; J7030

== ENCOUNTER → 2019-10-31 | Outpatient (CLI) | payer OTHER, MEDICAID | END | disposition home or self-care (01) | LOC: LAB 15:22 | PROVIDERS: ATTEND Internal Medicine Gastroenterology | DX: R10.9 Unspecified abdominal pain (principal) | CPT/HCPCS: 82784; 83516; 86255 ==

== ENCOUNTER 2020-04-29 13:12 | Inpatient (IN) | payer OTHER, MEDICAID ==
[~2020-04-29] VITALS: Ht 175.3 cm; Wt 117.7 kg
[2020-04-29] MEDS ORDERED: SODIUM CHLORIDE 0.9% 1,000 ML IVB ONE (13:26)
[2020-04-29 13:57] LABS: Basophils # (auto) 0.1 10 ^3/uL (0-0.2); Basophils % (auto) 1.9 % (0.0-2.0); Eosinophils # (auto) 0.2 10 ^3/uL (0-0.8); Eosinophils % (auto) 2.4 % (0.0-7.0); Hematocrit 37.9 % (36.0-46.0); Hemoglobin 12.5 g/dL (12.2-16.2); Lymphocytes % (auto) 26.3 % (10.0-50.0); Mean Corpuscular Hemoglobin 32.9 pg (28.0-32.0); Mean Corpuscular Hgb Conc. 33.1 g/dL (32.0-36.0); Mean Corpuscular Volume 99.4 fL (80.0-100.0); Monocytes # (auto) 0.8 10 ^3/uL (0-1.3); Monocytes % (auto) 11.1 % (0.0-12.0); Neutrophils # (auto) 4.4 10 ^3/uL (1.6-8.6); Neutrophils % (auto) 58.3 % (37.0-80.0); Nucleated Red Blood Cells % 0.1 %; Platelet Count (auto) 256 10^3/uL (140-450); Red Blood Cells 3.82 10^6/uL (4.0-5.20); White Blood Cell 7.6 10^3/uL (4.4-10.8)
[2020-04-29 13:59] LABS: Red Cell Distribution Width 21.4 % (11.8-14.3)
[2020-04-29 14:17] LABS: Albumin 2.4 g/dL (3.4-5.0); Calcium 8.8 mg/dL (8.5-10.1); Magnesium 1.8 mg/dL (1.6-2.6); Potassium 3.3 mmol/L (3.5-5.1)
[2020-04-29 14:33] LABS: BUN/Creatinine Ratio 11.7; Bilirubin, Total 15.4 mg/dL (0.2-1.0); Total Protein 7.5 g/dL (6.4-8.2)
[2020-04-29] MEDS ORDERED: SODIUM CHLORIDE 0.9% 500 ML IV ONE (14:45)
[2020-04-29] MEDS ORDERED: SODIUM CHLORIDE 0.9% 1,000 ML IV ONE (15:00)
[2020-04-29] MEDS ORDERED: VANCOMYCIN 1GM/250ML 250 ML IV ONE (15:00)
[2020-04-29] MEDS ORDERED: MAGNESIUM SULFATE 1GM/100ML 100 ML IV ONE ×2 (15:00→15:45)
[2020-04-29] MEDS ORDERED: NITROGLYCERIN 0.4 MG SL TAB SL PRN (15:30)
[2020-04-29] MEDS ORDERED: MORPHINE SULF INJ 2 MG/ML SYRINGE 1ML IV PRN (15:30)
[2020-04-29] MEDS ORDERED: POTASSIUM CHL 20MEQ/100ML 100 ML IV ONE (15:45)
[2020-04-29] MEDS ORDERED: MEROPENEM 500MG IVPB 50 ML IV ONE (15:45)
[2020-04-29] MEDS ORDERED: NOREPINEPHRINE 8 MG/250ML KIT 250 ML IV ONE (17:08)
[2020-04-29] MEDS: NOREPINEPHRINE 8 MG/250ML KIT 250 ML IV SCH (17:30)
[2020-04-29] MEDS ORDERED: GABAPENTIN 300 MG CAP PO ONE ×2 (20:00→21:00)
[2020-04-29 20:30] LABS: Urine Bacteria FEW /hpf (None Seen); Urine Blood Negative /uL (Negative); Urine WBC 81 /hpf (0 - 5); Urine WBC Clumps PRESENT /hpf (None Seen)
[2020-04-29] MEDS: NICOTINE 21MG/24 HR TOPICAL PATCH TD SCH (20:44)
[2020-04-30] MEDS ORDERED: VANCOMYCIN PER PHARMACY 1,000 MG IV SCH (01:00)
[2020-04-30] MEDS ORDERED: LORazepam 2MG/ML-1ML VIAL IV PRN (01:00)
[2020-04-30] MEDS ORDERED: ACETAMINOPHEN 325 MG TAB PO PRN (01:00)
[2020-04-30] MEDS: SODIUM CHLORIDE 0.9% 1,000 ML IV SCH ×2 (01:26→16:23)
[2020-04-30] MEDS ORDERED: DEXTROSE (50%) 50ML SYRG IV PRN (01:30)
[2020-04-30] MEDS ORDERED: VANCOMYCIN 1GM/250ML 250 ML IV ONE ×2 (03:30→14:30)
[2020-04-30 04:32] LABS: Basophils # (auto) 0.1 10 ^3/uL (0-0.2); Eosinophils # (auto) 0.3 10 ^3/uL (0-0.8); Eosinophils % (auto) 3.5 % (0.0-7.0); Hematocrit 37.7 % (36.0-46.0); Hemoglobin 12.1 g/dL (12.2-16.2); Lymphocytes # (auto) 1.5 10 ^3/uL (0.4-5.4); Lymphocytes % (auto) 20.6 % (10.0-50.0); Mean Corpuscular Hemoglobin 32.2 pg (28.0-32.0); Mean Corpuscular Volume 100.6 fL (80.0-100.0); Monocytes # (auto) 0.7 10 ^3/uL (0-1.3); Monocytes % (auto) 9.8 % (0.0-12.0); Neutrophils # (auto) 4.6 10 ^3/uL (1.6-8.6); Neutrophils % (auto) 64.1 % (37.0-80.0); Nucleated Red Blood Cells % 0.1 %; Platelet Count (auto) 225 10^3/uL (140-450); Red Blood Cells 3.75 10^6/uL (4.0-5.20); White Blood Cell 7.2 10^3/uL (4.4-10.8)
[2020-04-30 04:36] LABS: Red Cell Distribution Width 20.6 % (11.8-14.3)
[2020-04-30 04:53] LABS: Albumin 2.2 g/dL (3.4-5.0); Anion Gap 9 (5-15); Blood Urea Nitrogen 11 mg/dL (7-18); Calcium 8.2 mg/dL (8.5-10.1); Carbon Dioxide 28 mmol/L (21-32); Chloride 97 mmol/L (98-107); Glucose 156 mg/dL (74-106); Magnesium 1.9 mg/dL (1.6-2.6); Sodium 134 mmol/L (136-145)
[2020-04-30 04:57] LABS: INR 1.36 (0.9-1.15); Partial Thromboplastin Time 36.1 sec (23.0-31.2)
[2020-04-30 05:10] LABS: Alanine Aminotransferase 68 U/L (13-56); Alkaline Phosphatase 1361 U/L (45-117); Aspartate Aminotransferase 280 U/L (15-37); BUN/Creatinine Ratio 12.5; Bilirubin, Total 15.2 mg/dL (0.2-1.0); Creatine Kinase IFCC 31 U/L (26-192); GFR African American 85 mL/min; GFR Non-African American 71 mL/min; Phosphorus 2.6 mg/dL (2.5-4.90)
[2020-04-30 05:16] LABS: Potassium 2.7 mmol/L (3.5-5.1)
[2020-04-30] MEDS: POTASSIUM CHL 20MEQ/100ML 100 ML IV SCH ×2 (05:50→07:49)
[2020-04-30] MEDS: HYDROCORTISONE SOD SUCC 100 MG/2ML INJ VIAL IV SCH ×3 (05:50→13:23)
[2020-04-30] MEDS: metroNIDAZOLE 500MG/100ML 100 ML IV SCH ×3 (05:55→23:55)
[2020-04-30] MEDS: FUROSEMIDE 20 MG/2 ML VIAL IV SCH ×2 (05:57→09:00)
[2020-04-30] MEDS: ACCU-CHEK COMFORT CURVE STRIP VI SCH ×4 (07:02→23:50)
[2020-04-30] MEDS: LEVOTHYROXINE SODIUM 112 MCG TAB PO SCH (07:04)
[2020-04-30] MEDS: InsuLIN REG 1unit/0.01ml Soln (100units/ml) SC SCH ×4 (07:04→23:50)
[2020-04-30] MEDS ORDERED: POTASSIUM CHL 20 Meq TABLET PO ONE (08:30)
[2020-04-30 09:50] LABS: Cholesterol 302 mg/dL (< 200); HDL Cholesterol 6 mg/dL (40-59); Triglycerides 553 mg/dL (< 150)
[2020-04-30] MEDS: FAMOTIDINE (10MG/ML) 2ML VL IV SCH ×2 (10:00→23:55)
[2020-04-30] MEDS ORDERED: NICOTINE 21MG/24 HR TOPICAL PATCH TD SCH (10:00)
[2020-04-30] MEDS ORDERED: AMIODARONE HCL 200 MG TAB PO SCH (10:00)
[2020-04-30] MEDS ORDERED: SACUBITRIL-VALSARTAN 24mg/26mg TAB PO SCH (10:00)
[2020-04-30] MEDS ORDERED: CARVEDILOL 3.125 MG TAB PO SCH (10:00)
[2020-04-30] MEDS ORDERED: ENOXAPARIN SOD 40 MG/0.4 ML SYRINGE SC SCH (10:00)
[2020-04-30] MEDS ORDERED: CEFTRIAXONE SODIUM 2 GM in D5W 5% 50 ML IV SCH (10:00)
[2020-04-30] MEDS: MAGNESIUM OXIDE 400 MG TAB PO SCH ×2 (10:09→23:55)
[2020-04-30] MEDS: PARoxetine 20 MG TAB PO SCH (10:09)
[2020-04-30] MEDS: ASPirin 81 mg TAB PO SCH (10:09)
[2020-04-30] MEDS: GABAPENTIN 300 MG CAP PO SCH ×2 (10:13→23:55)
[2020-04-30 12:33] LABS: Albumin 2.3 g/dL (3.4-5.0); Calcium 8.6 mg/dL (8.5-10.1); Potassium 3.2 mmol/L (3.5-5.1)
[2020-04-30 12:36] LABS: BUN/Creatinine Ratio 12.6; Bilirubin, Total 15.9 mg/dL (0.2-1.0); Total Protein 7.2 g/dL (6.4-8.2)
[2020-04-30] MEDS ORDERED: VANCOMYCIN PER PHARMACY 0 MG IV SCH (13:45)
[2020-04-30] MEDS ORDERED: POTASSIUM EFFERVESENT TAB 25 MEQ PO ONE (14:00)
[2020-04-30] MEDS ORDERED: RIVAROXABAN 20 MG TAB PO SCH (18:00)
[2020-04-30] MEDS: NOREPINEPHRINE 8 MG/250ML KIT 250 ML IV SCH (19:15)
[2020-04-30] MEDS: NICOTINE 21MG/24 HR TOPICAL PATCH TD SCH (21:41)
[2020-04-30] MEDS: CARBIDOPA W LEVODOPA 25/100mg TABLET PO SCH (23:55)
[2020-05-01] MEDS: HYDROCORTISONE SOD SUCC 100 MG/2ML INJ VIAL IV SCH ×2 (01:39→06:33)
[2020-05-01] MEDS: SODIUM CHLORIDE 0.9% 1,000 ML IV SCH ×2 (03:40→18:07)
[2020-05-01] MEDS: FUROSEMIDE 20 MG/2 ML VIAL IV SCH (06:00)
[2020-05-01] MEDS: metroNIDAZOLE 500MG/100ML 100 ML IV SCH (06:33)
[2020-05-01] MEDS: ACCU-CHEK COMFORT CURVE STRIP VI SCH ×4 (07:02→22:00)
[2020-05-01] MEDS: LEVOTHYROXINE SODIUM 112 MCG TAB PO SCH (07:06)
[2020-05-01] MEDS: InsuLIN REG 1unit/0.01ml Soln (100units/ml) SC SCH ×4 (07:08→23:14)
[2020-05-01 07:28] LABS: Basophils # (auto) 0.1 10 ^3/uL (0-0.2); Eosinophils # (auto) 0.1 10 ^3/uL (0-0.8); Mean Corpuscular Hgb Conc. 31.9 g/dL (32.0-36.0); Nucleated Red Blood Cells % 0.1 %
[2020-05-01 07:30] LABS: Basophils % (auto) 1.3 % (0.0-2.0); Eosinophils % (auto) 0.9 % (0.0-7.0); Hematocrit 36.1 % (36.0-46.0); Hemoglobin 11.5 g/dL (12.2-16.2); Lymphocytes # (auto) 0.8 10 ^3/uL (0.4-5.4); Lymphocytes % (auto) 13.8 % (10.0-50.0); Mean Corpuscular Hemoglobin 32.5 pg (28.0-32.0); Monocytes # (auto) 0.5 10 ^3/uL (0-1.3); Monocytes % (auto) 7.8 % (0.0-12.0); Neutrophils # (auto) 4.5 10 ^3/uL (1.6-8.6); Neutrophils % (auto) 76.2 % (37.0-80.0); Platelet Count (auto) 206 10^3/uL (140-450); Red Blood Cells 3.54 10^6/uL (4.0-5.20); White Blood Cell 5.9 10^3/uL (4.4-10.8)
[2020-05-01 07:37] LABS: Red Cell Distribution Width 21.4 % (11.8-14.3)
[2020-05-01 07:45] LABS: Calcium 8.2 mg/dL (8.5-10.1)
[2020-05-01] MEDS ORDERED: POTASSIUM CHL 20 Meq TABLET PO ONE (08:45)
[2020-05-01] MEDS ORDERED: cefTRIAXone 1GM/50ML D5W 50 ML IV ONE (08:45)
[2020-05-01] MEDS: GABAPENTIN 300 MG CAP PO SCH ×2 (09:38→21:49)
[2020-05-01] MEDS: NICOTINE 21MG/24 HR TOPICAL PATCH TD SCH (09:38)
[2020-05-01] MEDS: PARoxetine 20 MG TAB PO SCH (09:38)
[2020-05-01] MEDS: ASPirin 81 mg TAB PO SCH (09:38)
[2020-05-01 09:43] LABS: Bilirubin, Direct 10.7 mg/dL (0-0.2); Bilirubin, Total 13.3 mg/dL (0.2-1.0); Total Protein 6.4 g/dL (6.4-8.2)
[2020-05-01] MEDS: FAMOTIDINE (10MG/ML) 2ML VL IV SCH ×2 (10:20→21:50)
[2020-05-01] MEDS ORDERED: VANCOMYCIN 1GM/250ML 250 ML IV SCH (11:00)
[2020-05-01] MEDS: VANCOMYCIN 1GM/250ML 250 ML IV SCH (11:00)
[2020-05-01] MEDS ORDERED: ENOXAPARIN SOD 60 MG/0.6 ML SYRINGE SC ONE (12:15)
--- NOTE | 2020-05-01 12:51 | NUR ---
I spoke with Dr. Tam regarding transfer to higher level of care. I faxed transfer order/clinical packet to [facility], [facility] and [facility]. I called [facility] [phone] and spoke with Bushra, provided her with contact information for Dr. Tam as well as the nurse's station. I requested that Dr. Tam place order for COVID test in anticipation of transfer.
--- NOTE | 2020-05-01 13:05 | NUR ---
Report Received report from [employer]PLI[employer] SERVICER HELPERMarquez.
--- NOTE | 2020-05-01 13:34 | NUR ---
Patient Arrived Patient arrived to unit. No signs of distress at this time. Safety precautions in place, will continue to monitor.
[2020-05-01 14:00] VITALS: BP 96/55
--- NOTE | 2020-05-01 14:16 | NUR ---
I received a call from [facility] letting me know that they are at capacity and can not accept this patient for transfer. I spoke with [facility] Electrocardiograph Operator Rhonda Daily [phone], she provided me with facility authorization number [id number], authorization for [facility] is [id number].
--- NOTE | 2020-05-01 14:25 | NUR ---
I called [facility] Center and spoke with Bushra, provided her with [facility] authorization number and contact information for [facility] Hand Sewer Shoes Rhonda. Per Bushra she is waiting for her MD to call back so she can connect him with Dr. Tam.
--- NOTE | 2020-05-01 15:10 | NUR ---
at Bedside Dr. Pettit at bedside discussing plan of care with patient.
--- NOTE | 2020-05-01 16:14 | NUR ---
Lynn RICHMOND Pageperry Tam
--- NOTE | 2020-05-01 16:18 | NUR ---
MD Called Received return call from Dr. Tam. Updated on plan of care and plan for ERCP tomorrow. Per MD, patient to proceed with procedure, as scheduled by Dr. Pettit, if patient has not yet been transferred to higher level of care due to patient requiring endoscopic ultrasound. Plan for ERCP, but continue with transfer.
--- NOTE | 2020-05-01 16:38 | NUR ---
I called [facility] ([phone]) and spoke with Carmelo, placed them on will call pending transfer to higher level of care. I called [facility] [phone] and left message asking about bed availability.
--- NOTE | 2020-05-01 16:41 | NUR ---
COVID Swab Obtained covid swab per Dr. Tam order and checked in to lab. Patient tolerated well.
--- NOTE | 2020-05-01 18:00 | NUR ---
Patient Rounds Attempted to obtain consents and covid swab at this time, patient refusing at this time due to eating dinner.
--- NOTE | 2020-05-01 19:02 | NUR ---
AMA to smoke Patient went downstairs to smoke. Patient understands risks of going off unit to smoke. BP currently 92/49, patient shows no signs of distress and is able to ambulate independently to personal wheelchair.
--- NOTE | 2020-05-01 19:26 | NUR ---
Closing Note Report given to NOC RN, Meron. Endorsed covid swab due to patient currently off unit to smoke.
--- NOTE | 2020-05-01 19:27 | NUR ---
Opening Shift Note Assumed care of patient, awake and alert. No S/S of distress/SOB or pain. Instructed on POC and to call for assist PRN, will continue to monitor for changes Q1hr and PRN. Safety precautions in place bed is in lowest position and locked, bed rails 2x.
--- NOTE | 2020-05-01 20:19 | NUR ---
Call from [place] [facility] Received call from transfer center from [facility]. Per Tammie [phone], no bed assignment available yet. Will continue to monitor patient Q1 and PRN.
--- NOTE | 2020-05-01 20:39 | NUR ---
Obtained COVID swab. Patient tolerated well, COVID swab walked to lab. Will continue to monitor patient Q1 and PRN.
[2020-05-01] MEDS: CARBIDOPA W LEVODOPA 25/100mg TABLET PO SCH (21:49)
[2020-05-01 22:00] VITALS: BP 104/52
[2020-05-01] MEDS ORDERED: ENOXAPARIN SOD 60 MG/0.6 ML SYRINGE SC SCH (22:00)
--- NOTE | 2020-05-02 01:25 | NUR ---
Called [facility] Center Per Tammie, still no bed available for transfer. Will continue to monitor patient Q1 and PRN. At this time patient has no s/s of distress or SOB.
[2020-05-02] MEDS: VANCOMYCIN 1GM/250ML 250 ML IV SCH (03:19)
[2020-05-02 05:00] VITALS: BP 82/53
[2020-05-02 05:45] LABS: Basophils # (auto) 0.1 10 ^3/uL (0-0.2); Basophils % (auto) 1.1 % (0.0-2.0); Eosinophils # (auto) 0.2 10 ^3/uL (0-0.8); Eosinophils % (auto) 3.3 % (0.0-7.0); Hematocrit 35.6 % (36.0-46.0); Hemoglobin 11.3 g/dL (12.2-16.2); Lymphocytes # (auto) 1.5 10 ^3/uL (0.4-5.4); Lymphocytes % (auto) 26.9 % (10.0-50.0); Mean Corpuscular Hemoglobin 32.2 pg (28.0-32.0); Mean Corpuscular Hgb Conc. 31.8 g/dL (32.0-36.0); Mean Corpuscular Volume 101.5 fL (80.0-100.0); Monocytes # (auto) 0.6 10 ^3/uL (0-1.3); Monocytes % (auto) 10.7 % (0.0-12.0); Neutrophils # (auto) 3.3 10 ^3/uL (1.6-8.6); Platelet Count (auto) 223 10^3/uL (140-450); Red Blood Cells 3.51 10^6/uL (4.0-5.20); White Blood Cell 5.7 10^3/uL (4.4-10.8)
[2020-05-02 05:50] LABS: Red Cell Distribution Width 21.6 % (11.8-14.3)
[2020-05-02 06:04] LABS: Albumin 2.1 g/dL (3.4-5.0); Calcium 8.2 mg/dL (8.5-10.1); Potassium 3.5 mmol/L (3.5-5.1)
[2020-05-02] MEDS: LEVOTHYROXINE SODIUM 112 MCG TAB PO SCH (06:09)
[2020-05-02] MEDS: SODIUM CHLORIDE 0.9% 1,000 ML IV SCH (06:10)
[2020-05-02 06:19] LABS: BUN/Creatinine Ratio 12.6; Bilirubin, Total 11.5 mg/dL (0.2-1.0); Total Protein 6.3 g/dL (6.4-8.2)
[2020-05-02] MEDS: ACCU-CHEK COMFORT CURVE STRIP VI SCH (06:41)
[2020-05-02] MEDS: InsuLIN REG 1unit/0.01ml Soln (100units/ml) SC SCH (06:45)
--- NOTE | 2020-05-02 07:10 | NUR ---
End of Shift Note Endorsed care to dayshift RN. At this time patient has no s/s of distress or SOB.
--- NOTE | 2020-05-02 07:30 | NUR ---
Opening Shift Note Assumed patient care from [facility] RN, Meron. Patient currently laying on right side, resting with eyes closed. Respirations even and unlabored, no signs of distress at this time. Safety precautions in place, will continue to monitor.
--- NOTE | 2020-05-02 08:01 | NUR ---
[place] Received call from Anastacia at [facility] Center. Patient to be admitted to room 372B, accepting MD is Dr. Leon Zimmerman.
--- NOTE | 2020-05-02 08:05 | NUR ---
professor of engineering Aware professor of engineeringEmily, aware of transfer.
--- NOTE | 2020-05-02 08:07 | NUR ---
Called [facility] Spoke with [facility]. Per Carmelo; provided hospital, room number, and accepting MD; pharmacy picking technician time will be 09:15.
[2020-05-02 08:09] VITALS: BP_SYST 101; BP_SYST 89; BP_DIAS 50; BP_DIAS 52
--- NOTE | 2020-05-02 08:27 | NUR ---
Notified Family Notified next of kin, Gwen, regarding transfer information. Answered all questions and provided hospital and room number.
--- NOTE | 2020-05-02 08:28 | NUR ---
Called [facility] [place] Attempted to reach Anastacia at [facility] to notify of lemon picker time. No answer at this time.
[2020-05-02 09:00] VITALS: BP 101/52
[2020-05-02] MEDS ORDERED: cefTRIAXone 1GM/50ML D5W 50 ML IV SCH (09:00)
--- NOTE | 2020-05-02 09:00 | NUR ---
Called [facility] Attempted to reach Anastacia regarding citrus picker time. No answer at this time, left message.
--- NOTE | 2020-05-02 09:10 | NUR ---
Discharge/[facility] arrived. [facility] personnel given transfer packet including imaging transfer disc. Discharge instructions given as ordered. Encourage to follow up with PMD as instructed. All questions and concerns addressed. Patient verbalized understanding. Medication reconciliation form completed and copy given to patient. IV removed with catheter intact, pressure dressing applied. Telemetry unit returned to ICU. Patient taken to vehicle via gurney with all personal belongings, accompanied by [facility] staff. No distress noted at time of departure. Patient is aware that family had been notified of transfer.
--- NOTE | 2020-05-02 09:14 | NUR ---
Report Gave report to Del at [facility]. All questions answered. RN informed on reason for transfer and transfer packet including radiology disc.
== END 2020-05-02 09:36 | disposition short-term general hospital (02) | DRG 871 ==
LOC: ER 13:12 → TELE 13:13 → TELE-WESTW 05-01 14:17
PROVIDERS: ADMIT Hospitalist; ATTEND Internal Medicine Nephrology
DX: A41.9 Sepsis, unspecified organism (principal); R65.21 Severe sepsis with septic shock; K85.10 Biliary acute pancreatitis without necrosis or infection; K83.1 Obstruction of bile duct; J96.01 Acute respiratory failure with hypoxia; N10 Acute pyelonephritis; I48.19 Other persistent atrial fibrillation; I50.22 Chronic systolic (congestive) heart failure; I48.92 Unspecified atrial flutter; I42.9 Cardiomyopathy, unspecified; E66.9 Obesity, unspecified; K21.9 Gastro-esophageal reflux disease without esophagitis; K29.70 Gastritis, unspecified, without bleeding; E03.9 Hypothyroidism, unspecified; E11.9 Type 2 diabetes mellitus without complications; E78.1 Pure hyperglyceridemia; I11.0 Hypertensive heart disease with heart failure; F17.210 Nicotine dependence, cigarettes, uncomplicated; Z20.828 Contact with and (suspected) exposure to other viral communicable diseases; E78.5 Hyperlipidemia, unspecified; Z79.82 Long term (current) use of aspirin; Z79.4 Long term (current) use of insulin; Z80.6 Family history of leukemia; Z82.49 Family history of ischemic heart disease and other diseases of the circulatory system; Z88.5 Allergy status to narcotic agent
CPT/HCPCS: 36415; 71045; 74176; 74181; 76705; 80048; 80053; 80061; 80076; 81001; 82140; 82150; 82550; 82962; 83605; 83690; 83735; 83880; 84100; 84484; 85025; 85379; 85610; 85730; 87040; 87077; 87186; 87426; 93005; 93306; 96360; G0378; J0696; J1815; J2185; J3480; J3490; J7060

== ENCOUNTER 2020-05-22 18:43 | Emergency (ER) | payer OTHER, MEDICAID ==
[~2020-05-22] VITALS: Ht 175.3 cm; Wt 122.5 kg
[2020-05-22] MEDS ORDERED: SODIUM CHLORIDE 0.9% 500 ML IV ONE (19:00)
[2020-05-22 20:45] LABS: Alanine Aminotransferase 10 U/L (13-56); Amylase 56 U/L (25-115); Anion Gap 12 (5-15); Aspartate Aminotransferase 103 U/L (15-37); BUN/Creatinine Ratio 6.4; Blood Urea Nitrogen 7 mg/dL (7-18); Carbon Dioxide 24 mmol/L (21-32); Chloride 97 mmol/L (98-107); GFR African American 66 mL/min; GFR Non-African American 55 mL/min; Glucose 164 mg/dL (74-106); Lipase 418 U/L (73-393); Magnesium 1.9 mg/dL (1.6-2.6); Potassium 3.8 mmol/L (3.5-5.1); Sodium 133 mmol/L (136-145)
[2020-05-22 20:51] LABS: Lactic Acid w/Reflex 5.2 mmol/L (0.4-2.0)
[2020-05-22 20:54] LABS: INR 1.29 (0.9-1.15); Partial Thromboplastin Time 33.6 sec (23.0-31.2)
[2020-05-22 20:56] LABS: Alkaline Phosphatase 886 U/L (45-117); Bilirubin, Total 17.9 mg/dL (0.2-1.0); Total Protein 7.6 g/dL (6.4-8.2)
[2020-05-22 20:59] LABS: Hemoglobin 12.9 g/dL (12.2-16.2); Mean Corpuscular Hemoglobin 35.3 pg (28.0-32.0); Mean Corpuscular Hgb Conc. 33.1 g/dL (32.0-36.0); Mean Corpuscular Volume 106.8 fL (80.0-100.0); Platelet Count (auto) 361 10^3/uL (140-450); Red Blood Cells 3.66 10^6/uL (4.0-5.20); Red Cell Distribution Width 18.6 % (11.8-14.3)
[2020-05-22 21:02] LABS: Basophils % (manual) 0 (0.0-2.0); Blast Cells 0; Eosinophils % (manual) 0 (0-7); Metamyelocytes % 0; Myelocytes % 0; Promyelocytes % 0; Reactive Lymphocytes 0
[2020-05-22] MEDS ORDERED: SODIUM CHLORIDE 0.9% 1,000 ML IV ONE (21:22)
[2020-05-22] MEDS ORDERED: VANCOMYCIN PER PHARMACY 0 MG IV SCH (21:45)
[2020-05-22 21:52] LABS: Band Neutrophils % (manual) 2; Lymphocytes % (manual) 6 (10.0-50.0); Monocytes % (manual) 7 (0-12)
[2020-05-22] MEDS ORDERED: VANCOMYCIN 1GM/250ML 250 ML IV SCH ×2 (22:00)
[2020-05-22] MEDS ORDERED: IOHEXOL 350 MG/ML 100ML IJ ONE (22:05)
[2020-05-22] MEDS ORDERED: NOREPINEPHRINE 8 MG/250ML KIT 250 ML IV ONE (22:15)
[2020-05-22] MEDS ORDERED: SUCCINYLCHOLINE CHLORIDE 20 MG/ML 10ML VIAL IV ONE ×2 (22:15→22:30)
[2020-05-22] MEDS ORDERED: ETOMIDATE (2MG/ML) 20ML VIAL IV ONE ×2 (22:15→22:30)
[2020-05-22] MEDS ORDERED: NOREPINEPHRINE 8 MG/250ML KIT 250 ML IV SCH (22:30)
[2020-05-22] MEDS ORDERED: MIDAZOLAM DRIP 50 mg/50mL 50 ML IV ONE (22:34)
[2020-05-22] MEDS ORDERED: MIDAZOLAM DRIP 50 mg/50mL 50 ML IV SCH (22:37)
[2020-05-22 22:38] VITALS: BP 110/57
[2020-05-22 23:34] LABS: Lactic Acid w/Reflex 6.7 mmol/L (0.4-2.0)
[2020-05-22 23:43] VITALS: BP 87/51
[2020-05-23] LABS: Urine Bacteria NONE SEEN /hpf (None Seen); Urine Blood Negative /uL (Negative); Urine Hyaline Cast MANY /lpf (0 - 2); Urine Mucus FEW (None Seen); Urine WBC 10 /hpf (0 - 5)
[2020-05-23] MEDS ORDERED: PIPERACILLIN-TAZOB 3.375GM 100 ML IV SCH
[2020-05-23 01:30] VITALS: BP 95/51
[2020-05-23] MEDS ORDERED: SODIUM CHLORIDE 0.9% 3,650 ML IV ONE (01:30)
[2020-05-23] MEDS ORDERED: SODIUM CHLORIDE 0.9% 1,150 ML IV ONE (02:00)
[2020-05-23 03:00] VITALS: BP 91/50
[2020-05-23 04:15] VITALS: BP 96/51
== END 2020-05-23 04:43 | disposition short-term general hospital (02) ==
LOC: EDBD 18:43 → ER 18:43
DX: A41.9 Sepsis, unspecified organism (principal); G92 Toxic encephalopathy; C25.9 Malignant neoplasm of pancreas, unspecified; C78.7 Secondary malignant neoplasm of liver and intrahepatic bile duct; K63.1 Perforation of intestine (nontraumatic); I11.0 Hypertensive heart disease with heart failure; I50.9 Heart failure, unspecified; E11.9 Type 2 diabetes mellitus without complications; K21.9 Gastro-esophageal reflux disease without esophagitis; E78.5 Hyperlipidemia, unspecified; Z79.899 Other long term (current) drug therapy; Z79.82 Long term (current) use of aspirin; Z88.5 Allergy status to narcotic agent
CPT/HCPCS: 36415; 36600; 70450; 71045; 71250; 71275; 74176; 80053; 81001; 82140; 82150; 82553; 82805; 82962; 83605; 83690; 83735; 83880; 84484; 84702; 85007; 85027; 85379; 85384; 85610; 85730; 86850; 86900; 86901; 87040; 87070; 87076; 87205; 87426; 93005; 96361; 96365; 96367; 99291; J0330; J2250; J2543; J3370; J7030; J7040; Q9967; 94002; 96368

== ENCOUNTER 2020-06-17 15:52 | Inpatient (IN) | payer OTHER, MEDICAID ==
[~2020-06-17] VITALS: Ht 170.2 cm; Wt 106.2 kg
[2020-06-17 16:50] LABS: Basophils # (auto) 0.1 10 ^3/uL (0-0.2); Basophils % (auto) 0.8 % (0.0-2.0); Eosinophils # (auto) 0.2 10 ^3/uL (0-0.8); Eosinophils % (auto) 2.5 % (0.0-7.0); Hematocrit 34.7 % (36.0-46.0); Hemoglobin 11.3 g/dL (12.2-16.2); Lymphocytes # (auto) 1.2 10 ^3/uL (0.4-5.4); Lymphocytes % (auto) 12.4 % (10.0-50.0); Mean Corpuscular Hemoglobin 32.7 pg (28.0-32.0); Mean Corpuscular Hgb Conc. 32.6 g/dL (32.0-36.0); Mean Corpuscular Volume 100.5 fL (80.0-100.0); Monocytes # (auto) 0.7 10 ^3/uL (0-1.3); Monocytes % (auto) 7.5 % (0.0-12.0); Neutrophils # (auto) 7.6 10 ^3/uL (1.6-8.6); Neutrophils % (auto) 76.8 % (37.0-80.0); Nucleated Red Blood Cells % 0.1 %; Platelet Count (auto) 243 10^3/uL (140-450); Red Blood Cells 3.45 10^6/uL (4.0-5.20); Red Cell Distribution Width 16.7 % (11.8-14.3); White Blood Cell 9.9 10^3/uL (4.4-10.8)
[2020-06-17 17:06] LABS: Albumin 1.6 g/dL (3.4-5.0); Anion Gap 8 (5-15); Blood Urea Nitrogen 50 mg/dL (7-18); Calcium 8.8 mg/dL (8.5-10.1); Carbon Dioxide 30 mmol/L (21-32); Chloride 87 mmol/L (98-107); Magnesium 2.6 mg/dL (1.6-2.6); Potassium 4.5 mmol/L (3.5-5.1); Sodium 125 mmol/L (136-145)
[2020-06-17 17:12] LABS: Lactic Acid w/Reflex 4.2 mmol/L (0.4-2.0)
[2020-06-17 17:13] LABS: Alanine Aminotransferase 24 U/L (13-56); Alkaline Phosphatase 297 U/L (45-117); Aspartate Aminotransferase 61 U/L (15-37); BUN/Creatinine Ratio 33.8; Bilirubin, Total 6.3 mg/dL (0.2-1.0); GFR African American 47 mL/min; GFR Non-African American 39 mL/min; Total Protein 8.5 g/dL (6.4-8.2)
[2020-06-17 17:17] LABS: Glucose 437 mg/dL (74-106)
[2020-06-17] MEDS ORDERED: NITROGLYCERIN 0.4 MG SL TAB SL PRN (22:30)
[2020-06-17] MEDS ORDERED: DEXTROSE (50%) 50ML SYRG IV PRN (22:30)
[2020-06-17] MEDS ORDERED: ALBUTEROL SULF 2.5 MG/0.5ML(0.5%) NEB SOLN NEB PRN (23:05)
[2020-06-17] MEDS ORDERED: IPRATROPIUM BROM 0.5 MG/2.5ML INH SOL NEB PRN (23:06)
[2020-06-17 23:13] VITALS: BP 112/75
[2020-06-17 23:24] LABS: Albumin 1.4 g/dL (3.4-5.0); BUN/Creatinine Ratio 29.4; Calcium 8.6 mg/dL (8.5-10.1); Potassium 4.4 mmol/L (3.5-5.1)
[2020-06-17 23:26] LABS: Bilirubin, Total 5.8 mg/dL (0.2-1.0); Total Protein 7.8 g/dL (6.4-8.2)
[2020-06-18] VITALS (77 sets, daily range): BP systolic 65–139; BP diastolic 36–122
[2020-06-18] MEDS: InsuLIN REG 1unit/0.01ml Soln (100units/ml) SC SCH ×4 (00:47→18:06)
[2020-06-18] MEDS: ACCU-CHEK COMFORT CURVE STRIP VI SCH ×4 (00:47→17:58)
[2020-06-18] MEDS ORDERED: ONDANSETRON HCL 4 MG/2 ML VIAL IV SCH (02:00)
[2020-06-18] MEDS: SODIUM CHLORIDE 0.9% 1,000 ML IV SCH ×3 (02:07→17:51)
[2020-06-18] MEDS ORDERED: HYDROcodone-ACET 5/325MG TAB PO PRN (02:15)
[2020-06-18] MEDS ORDERED: ONDANSETRON HCL 4 MG/2 ML VIAL IV PRN (02:15)
[2020-06-18] MEDS ORDERED: FUROSEMIDE 20 MG/2 ML VIAL IV ONE (04:45)
[2020-06-18] MEDS: NOREPINEPHRINE 8 MG/250ML KIT 250 ML IV SCH ×2 (05:06→21:00)
--- NOTE | 2020-06-18 05:23 | NUR ---
RT NOTE: PRN BREATHING TX. NOT INDICATED AT THIS TIME. PT. SLEEPING, NO S/S OF RESPIRATORY DISTRESS NOTED. PT. HR 83, RR 18, POX 95% ON A 6L OXYMIZER.
--- NOTE | 2020-06-18 05:38 | NUR ---
TO RECEIVE THIS PATIENT INTO ICU ROOM 104.
[2020-06-18] MEDS ORDERED: GABAPENTIN 400 MG CAP PO SCH ×2 (06:00→06:53)
--- NOTE | 2020-06-18 06:30 | NUR ---
PATIENT ADMITTED TO ICU ROOM 4 FROM ER. ORIENTED TO NAME, BIRTHDATE, AND WHERE SHE IS. DID NOT KNOW THE YEAR. SPEECH NOT THE CLEAREST, BUT SHE DOES HAVE A DRY MOUTH AND LIPS. LEFT PUPIL SLIGHTLY GREATER THAN RIGHT. BOTH ARE SLUGGISH. SHE WILL OPEN HER EYES TO STIMULATION. LUNGS COARSE. VERY COARSE COUGH THAT HAS SO FAR BEEN NONPRODUCTIVE. ON 6L OXYMIZER. O2 SAT 93%. ABDOMEN IS ROUND. LARGE SECURE ABD DRESSING THAT IS DRY. TO THE LEFT OF THE DRESSING IS A BILIARY TUBE TO A BILE BAG. EMPTIED , IT DRAINED 90CC OF BILE LIQUID. BELOW THAT IS A G/J TUBE WITH THE J PORTION DRAINING TO DOWN DRAIN BAG. EMPTIED: IT WAS 210CC OF CLOUDY SNEED/BROWN LIQUID. JONES TO DOWN DRAIN BAG. IN THE TUBING IT IS A CLEAR YELLOW. BUT WHEN I EMPTIED THE JONES, IT WAS LINCOLN WITH SEDIMENT. DOUBLE LUMEN PICC IN RIGHT UPPER ARM HAS A DRESSING DATING 06/13/20. IT CAME FROM THE OUTSIDE. UNKNOWN INSERTION DATE. LEFT HAND 22G HEPLOCK. NO FLUIDS RUNNING THROUGH THAT. ALL PULSES PALPABLE. BOTH FEET ARE COOL FROM THE ANKLES DOWN. BOTH HEELS ARE A BLANCHABLE RED. TURNING HER OVER, SHE WAS IN A LOT OF PAIN. LARGE OPEN DRAINING PRESSURE WOUND WITH AN OPTIFOAM OVER IT. THE WOUND HAS AN ODOR. NORMAL TEMP. ELEVATED LACTIC ACID LEVEL. LEVOPHED AT 6 MCG/MIN. MAIN IV NORMAL SALINE AT 125CC/HR. ALL RUNNING THROUGH THE PICC LINE. 7AM LABS SENT. ACCUCHECK COVERED WITH REGULAR INSULIN. THE TWO AM MEDICATIONS WERE NOT AVAILABLE THROUGH OUR [facility]. PHARMACY NOTIFIED. THE NEURONTIN IS ON IT'S WAY AND THE SYNTHROID IS BEING SENT UP IN THE TUBE SYSTEM. WOUND AND DIETARY CONSULT PLACED.
[2020-06-18] MEDS ORDERED: LEVOTHYROXINE SODIUM 112 MCG TAB PO SCH (07:00)
[2020-06-18 07:04] LABS: Basophils # (auto) 0.1 10 ^3/uL (0-0.2); Basophils % (auto) 0.5 % (0.0-2.0); Eosinophils # (auto) 0.2 10 ^3/uL (0-0.8); Eosinophils % (auto) 2.3 % (0.0-7.0); Hematocrit 27.4 % (36.0-46.0); Hemoglobin 8.9 g/dL (12.2-16.2); Lymphocytes % (auto) 9.1 % (10.0-50.0); Mean Corpuscular Hemoglobin 32.4 pg (28.0-32.0); Mean Corpuscular Hgb Conc. 32.5 g/dL (32.0-36.0); Mean Corpuscular Volume 99.6 fL (80.0-100.0); Monocytes # (auto) 1.1 10 ^3/uL (0-1.3); Monocytes % (auto) 9.8 % (0.0-12.0); Neutrophils # (auto) 8.4 10 ^3/uL (1.6-8.6); Neutrophils % (auto) 78.3 % (37.0-80.0); Nucleated Red Blood Cells % 0.1 %; Platelet Count (auto) 225 10^3/uL (140-450); Red Blood Cells 2.75 10^6/uL (4.0-5.20); Red Cell Distribution Width 16.7 % (11.8-14.3); White Blood Cell 10.7 10^3/uL (4.4-10.8)
[2020-06-18 07:22] LABS: Albumin 1.2 g/dL (3.4-5.0); Calcium 6.6 mg/dL (8.5-10.1); Potassium 3.3 mmol/L (3.5-5.1)
[2020-06-18 07:25] LABS: Bilirubin, Total 4.6 mg/dL (0.2-1.0); Total Protein 6.1 g/dL (6.4-8.2)
--- NOTE | 2020-06-18 07:32 | NUR ---
REPORT GIVEN TO RADHA HUTTON. PICTURES TAKEN OF SACRAL AREA. HAS A VERY LARGE OPEN WOUND WITH SEROSANGUINOUS DRNG. OPTIFOAM REMOVED AND NEW ONE PLACED. DATE ON DOUBLE LUMEN PICC LINE WAS 06/13/20. BILATERAL HEELS ARE RED. HYPERPIGMENTATION OF RIGHT LOWER LEG, LESS SO ON THE RIGHT . BOTH FEET ARE FROM THE ANKLE DOWN ARE COLD. ALL PULSES PALPABLE. SOCKS ON FEET. LIPS ARE DRY. VERY COARSE, NONPRODUCTIVE COUGH. ABDOMEN: LARGE SECURE ABD. TO THE LEFT OF IT IS A BILIARY DRAIN TO DOWN DRAIN BAG THAT HAS A MODERATE AMOUNT OF BILE DRNG. BELOW THAT IS A G/J TUBE WITH THE J PORT TO DOWN DRAIN BAG. JONES IN PLACE DRAINING CLEAR YELLOW LIQUID. MOVES ARMS MORE THAN LEGS. IN BENDING HER LEGS, THE KNEES ARE STIFF. LEFT PUPIL GREATER THAN RIGHT.
--- NOTE | 2020-06-18 08:30 | NUR ---
PT TEACHING PT UNABLE TO BENEFIT FROM PT TEACHING AT THIS TIME SHE IS CONFUSED. Addendum: 06/18/20 at 2020 by Sloane Mendoza RN Amended: Links added.
[2020-06-18] MEDS ORDERED: PANTOPRAZOLE 40 MG TAB PO SCH (10:00)
[2020-06-18] MEDS ORDERED: AMIODARONE HCL 200 MG TAB PO SCH (10:00)
--- NOTE | 2020-06-18 10:22 | NUR ---
WOUND CARE NOTE: Wound care in to see patient per wound care request regarding sacral wound and skin integrity issue that are noted present upon admission. Bedside nurse took photograph of patient's wounds, skin issue upon admission for reference. Patient is 54 years old female with admitting diagnosis of SOB,Uncontrolled Diabetes. Patient is resting in ICU low air loss bed in Rm. 104. Patient's eyes are closed, respond to verbal and tactile stimuli. She's on O2 Oxymizer. Patient appears to be in no pain using Larios Humphreys Faces Pain Scale however mild pain noted upon turning. Skin/wound assessment done with the assistance of floatmanBartolo Shane. Patient's sacrum noted with large (10x9cm) open full thickness pressure injury. Sacral wound has 85% yellow adherent slough, 10% brown/black necrotic tissue to Rt side of wound and dusky red to wound edges. Jessica wound is bright red, minimal serous drainage noted, no odor noted. Sacral wound is Unstageable at this time due to presence of necrotic tissue. Cleansed sacral wound with wound cleanser,patted dry with gauze, applied Thera honey gauze over wound bed and covered with Opti foam sacral dressing. Patient is unable to give information regarding her sacral wound. Patient's L lateral heel noted with intact skin with blanchable redness. Repositioned patient for comfort facing her Rt side, redistributed pressure points with pillows. Patient tolerated well. RECOMMENDATION: Nursing to continue with Daily/PRN dressing change to sacral wound per MD order, surgical consult for possible wound debridement, Dietary consult, frequent turning and repositioning schedule as condition permits, redistribute pressure points with pillows, frequent jessica care/check, keep clean and dry,elevate heels on pillows, air mattress if patient is transferring to different unit other than ICU/SDU, continue monitoring by wound care while patient is hospitalized. Addendum: 06/18/20 at 1613 by Cheryl Alfredo RN Amended: Links added. Addendum: 06/18/20 at 1616 by Cheryl Alfredo RN [phone] and [id number] came back to see patient per RADHA Anton's request due to draining wound to abdominal wound/tube sites. Patient has gastrojejunostomy and other tube, hx of abdominal surgery in [facility] with tube placement. Unable to see patient, Dr. Delarosa and Laura at bedside.
[2020-06-18] MEDS ORDERED: POTASSIUM CHLORIDE 40 MEQ, LIDOCAINE 1% (LOCAL ANESTH.) 4 ML in SODIUM CHL 0.9% 100 ML IV ONE (11:00)
--- NOTE | 2020-06-18 11:00 | NUR ---
DR HARDY AT THE BEDSIDE AND SHOWED HIM THE CONTINUOUS DRAINAGE OF DARK BROWN FLUID FROM A HOLE IN HER LEFT ABD. HE ORDERED FOR A STAT CONSULT WITH DR SPANGLER, CALLED TO THE SWITCHBOARD. STATES HE WILL TALK WITH THE FAMILY.
--- NOTE | 2020-06-18 11:10 | NUR ---
CRYS SPOKE WITH DR SPANGLER REGARDING STAT CONSULT AND MADE AWARE OF PT'S HISTORY, REASON FOR ADMISSION AND CURRENT CONDITION. HE WOULD LIKE TO GET HER RECORDS FROM [facility] WHERE SHE WAS RECENTLY HOSPITALIZED.
--- NOTE | 2020-06-18 12:15 | NUR ---
FAMILY PT'S SIGNIFICANT OTHER AND PT'S SON HERE IN THE LOBBY. WENT OUT AND SPOKE WITH THEM , UPDATING THEM ON THE PT'S CONDITION. I SPOKE WITH DR HARDY RIGHT BEFORE SPEAKING WITH THE FAMILY AND HE STATED HE WOULD BE DOWN SHORTLY TO SPEAK WITH THEM.
--- NOTE | 2020-06-18 12:30 | NUR ---
MD VISIT PT SEEN AND EXAMINED BY DR Jaycob HOWARD. HE SPOKE WITH THE PT'S PARTNER AND PT'S SON. HE STATED HE IS WILLING TO CARE FOR THE PT OR IF THEY PREFER DR HARDY, THAT IS OK AND HE WILL RESPECT THEIR WISHES.
[2020-06-18 12:48] LABS: INR 1.14 (0.9-1.15); Partial Thromboplastin Time 31.9 sec (23.0-31.2)
--- NOTE | 2020-06-18 13:05 | NUR ---
DR SIMPSON HERE AND SPOKE WITHTHE PT AND HER FAMILY. FAMILY PREFERS TO HAVE DR Jaycob HOWARD CARE FOR THE PATIENT. DR Jaycob HOWARD HERE AND MADE AWARE OF FAMILY'S CHOICE.
[2020-06-18] MEDS ORDERED: levoFLOXacin 250MG 50 ML IV ONE (13:45)
--- NOTE | 2020-06-18 13:55 | NUR ---
CONSENT PT'S SON, VICENTE GRACE, IS AT THE BEDSIDE AND IS GIVING VERBAL PERMISSION FOR HIS MOTHER'S PARTNER, GEOFF MEMO, TO MAKE DECISIONS FOR THE PATIENT. AUTHORIZATION ALSO WITNESSED BY DR Jaycob HOWARD. VICENTE GRACE [phone] GEOFF HAMPTON [phone]
[2020-06-18] MEDS ORDERED: levoFLOXacin 500MG 100 ML IV ONE (14:00)
[2020-06-18] MEDS ORDERED: SODIUM CHLORIDE 0.9% 500 ML IV ONE ×2 (14:00→15:00)
--- NOTE | 2020-06-18 14:00 | NUR ---
SON AND SIGNIFICANT OTHER AT THE BEDSIDE AND THEY STATED THAT TO THE BEST OF THEIR KNOWLEDGE THE PT HAS NO ALLERGIES.
[2020-06-18] MEDS: MORPHINE SULF INJ 2 MG/ML SYRINGE 1ML IV PRN (14:41)
[2020-06-18 16:14] LABS: Urine Bacteria FEW /hpf (None Seen); Urine Blood 1+ /uL (Negative); Urine Specific Gravity 1.015 (1.001-1.035); Urine WBC 400 /hpf (0 - 5); Urine WBC Clumps PRESENT /hpf (None Seen)
--- NOTE | 2020-06-18 16:25 | NUR ---
MD FROM [facility] RECEIVED A PHONE CALL FROM PT'S SURGEON AT [facility] . I GAVE HIM AN UPDATE AND HE WOULD LIKE TO SPEAK WITH THE PRIMARY MD AND ALSO THE SURGEON. PAGED DR Jaycob HOWARD, SECOND PAGE, AND DR SPANGLER.
--- NOTE | 2020-06-18 16:44 | NUR ---
SPOKE WITH DR SPANGLER, BY PHONE, AND NOTIFIED HIM THAT THE PT'S SURGEON FROM [facility] WOULD LIKE TO SPEAK WITH HIM. I PROVIDED HIM WITH THE DOCTOR'S NAME AND PHONE NUMBER. DR CLAIRE MALLOY, SURGEON, .
--- NOTE | 2020-06-18 17:30 | NUR ---
PT HAS ORDERS FOR A HEAD CT AND A HEAD MRI. ASKED DR BLACK IF HE WANTS BOTH. HE SAID TO DC THE HEAD CT ORDER AND DO THE HEAD MRI. I LET HIM KNOW IT PROBABLY WON'T BE DONE UNTIL TOMORROW AND HE SAID THAT WAS OKAY.
[2020-06-18] MEDS: AMIODARONE HCL 200 MG TAB PO SCH (17:51)
[2020-06-18] MEDS: PARoxetine 20 MG TAB PO SCH (17:52)
[2020-06-18] MEDS: ASPirin 81 mg TAB PO SCH (17:53)
--- NOTE | 2020-06-18 18:10 | NUR ---
Respiratory note: PT CURRENTLY ON OXIMIZER @ 6LPM. PT IS ASLEEP AT THIS TIME. NO RESP DISTRESS NOTED. SPO2 95%, HR 98, RR 16. PRN TX NOT INDICATED. WILL CONTINUE TO MONITOR PT T/O SHIFT.
--- NOTE | 2020-06-18 19:45 | NUR ---
REPORT REPORT GIVEN TO NIGHT RNLYNDSEY. REPORT GIVEN AND THEN BEDSIDE CHECK DONE. NIGHT LEGAL CLERKPAULA, ABLE TO LOCATE DOBHOFF SYRINGE AND ABLE TO ADMINISTER PO MEDS. SUCTION TO BE OFF X ONE HOUR. Addendum: 06/18/20 at 2110 by Sloane Mendoza RN CLARIFICATION OF OUTPUT JONES 1450 G TUBE 200 BILIARY TUBE 150 JEJUNOSTOMY 10
--- NOTE | 2020-06-18 20:00 | NUR ---
ADMITTED ON 06/17/20 FOR SHORTNESS OF BREATH. ARRIVED WITH A LARGE , OPEN, FULL THICKNESS PRESSURE WOUND ON HER SACRUM. SKIN IS JAUNDICE. HEELS ARE RED AND BLANCHABLE. MOUTH BREATHING. TONGUE IS DRY AND LIPS SCALY. ORAL CARE DONE.LUNGS CLEAR, DIM IN BASES. ON 6L OXYMIZER. COARSE, NONPRODUCTIVE COUGH. ORALLY SUCTIONED AND SUCTIONED DOWN HER RIGHT NARE FOR THICK CREAMY SECRETIONS. MOISTURIZER TO LIPS AND TONGUE. ABDOMEN IS ROUND. MIDLINE INCISION HAS A CLEAN, DRY, SECURE ABD DRESSING. TO THE LEFT OF THAT IS A BILIARY TUBE TO DOWN DRAIN BILE BAG. THERE IS BILE LIQUID IN THE BAG. UNDER THAT IS A G/J TUBE. THE G PORTION IS TO LIS SUCTION AND IS DRAINING COFFEE GROUND LIQUID. THE J PORTION IS HOOKED TO A DOWN DRAIN BAG AND IS DRAINING A MILKY TAUPE COLOR LIQUID IN SMALL AMOUNTS. THERE IS AN OPEN HOLE TO THE LEFT OF THE G/J TUBE. BOTH ARE LEAKING BROWN LIQUID. JONES IN PLACE DRAINING AN LINCOLN LIQUID WITH LIGHT SHAKIR SLUDGE IN LOWER BAG. ALL PULSES ARE PALPABLE. MID ANKLE DOWN THE FEET ARE COLD. SOCKS ARE ON. TEMP IS 100.3. SBP STABLE WITH LEVOPHED SUPPORT. MAIN IV FLUID AT 100CC/HR. BNP IS NORMAL. WBC IS 10.7. PATIENT HAS A DOUBLE LUMEN PICC THAT WAS PLACED OUTSIDE THE HOSPITAL. HAS A 22 IN THE THAT IS CURRENTLY NOT IN USE.
[2020-06-18] MEDS ORDERED: ATORVASTATIN 20 MG TAB PO SCH (22:00)
[2020-06-18] MEDS ORDERED: PANTOPRAZOLE 40 MG/10 ML VIAL INJ IV SCH (22:00)
--- NOTE | 2020-06-18 22:00 | NUR ---
REPOSITIONED ORAL CARE DONE. DID A LOT OF MOISTENING. NONPRODUCTIVE COARSE COUGH. LUNGS CLEAR. OPENED UP THE G PORTION TO DRAIN AND THEN INSTILLED MORE MEDICATION. WHEN YOU INSTILL MEDICATION IT JUST COMES OUT AROUND THE G/J INSERTION SITE. PATIENT IS ALWAYS RESTING, EYES CLOSED. SHE WILL CONVERSE WITH YOU IF STIMULATED ENOUGH. ENCOURAGED TO COUGH.
[2020-06-18] MEDS: ATORVASTATIN 20 MG TAB PO SCH (22:33)
[2020-06-18] MEDS: AMITRIPTYLINE HCL 10 MG TAB PO SCH (22:33)
[2020-06-18] MEDS: CARBIDOPA W LEVODOPA 25/100mg TABLET PO SCH (22:33)
--- NOTE | 2020-06-18 23:00 | NUR ---
O2 SAT DROPPED TO 88%. ENCOURAGED TO COUGH. SUCTIONED A LARGE AMOUNT OF THICK CREAMY SECRETIONS FROM THE BACK OF HER THROAT. O2 SAT INCREASED TO 95-96%. OXYMIZER AT 6L.
[2020-06-19] VITALS (93 sets, daily range): BP systolic 79–120; BP diastolic 36–69
--- NOTE | 2020-06-19 | NUR ---
VSS. TEMP REMAINS THE SAME, 100 ORALLY. ORAL CARE DONE AGAIN. ANSWERED ORIENTATION QUESTIONS CORRECTLY. PICC LINE DRESSING CHANGED. FOUND A LIGHT BLUE COLOR THAT NOT ONLY WAS ON THE SKIN, BUT WAS ON THE DRESSING. NO BIOPATCH. NO STABILIZATION DEVICE. INSERTION SITE WAS RED. CLEANSED WITH BETADINE AND ALCOHOL. SITE DRIED AND NEW BIOPATCH APPLIED. NEW STABILIZATION DEVICE APPLIED. CLEAR DRESSING TO COVER. G PORT OPEN TO SUCTION NOW. IT IS DRAINING A DARK BROWN LIQUID. BODY REPOSITIONED. BILE BAG EMPTIED. URINE IS LINCOLN. AMOUNT IS GOOD. ACCUCHECK 187. SLIDING SCALE REPLACEMENT. LUNGS CLEAR, DIM IN BASES. NO CHANGE IN LEVOPHED DRIP RATE. NO ECTOPY. NSR WITH BBB.
[2020-06-19] MEDS: SODIUM CHLORIDE 0.9% 1,000 ML IV SCH ×3 (02:00→22:26)
--- NOTE | 2020-06-19 02:00 | NUR ---
REPOSITIONED TO HER RIGHT SIDE. PITTING EDEMA PERSISTS IN HER LEGS. MUCH MORE WIDE AWAKE AT THIS MOMENT. ASKING QUESTIONS ABOUT WHY SHE IS HERE
[2020-06-19 03:53] LABS: Basophils # (auto) 0.1 10 ^3/uL (0-0.2); Basophils % (auto) 0.8 % (0.0-2.0); Eosinophils # (auto) 0.3 10 ^3/uL (0-0.8); Eosinophils % (auto) 2.8 % (0.0-7.0); Hematocrit 28.1 % (36.0-46.0); Hemoglobin 9.2 g/dL (12.2-16.2); Lymphocytes # (auto) 1.2 10 ^3/uL (0.4-5.4); Lymphocytes % (auto) 10.7 % (10.0-50.0); Mean Corpuscular Hemoglobin 32.4 pg (28.0-32.0); Mean Corpuscular Hgb Conc. 32.6 g/dL (32.0-36.0); Mean Corpuscular Volume 99.3 fL (80.0-100.0); Monocytes # (auto) 1.2 10 ^3/uL (0-1.3); Monocytes % (auto) 10.8 % (0.0-12.0); Neutrophils # (auto) 8.1 10 ^3/uL (1.6-8.6); Neutrophils % (auto) 74.9 % (37.0-80.0); Platelet Count (auto) 229 10^3/uL (140-450); Red Blood Cells 2.83 10^6/uL (4.0-5.20); Red Cell Distribution Width 16.7 % (11.8-14.3); White Blood Cell 10.8 10^3/uL (4.4-10.8)
[2020-06-19 04:13] LABS: Calcium 7.9 mg/dL (8.5-10.1); Potassium 3.8 mmol/L (3.5-5.1)
[2020-06-19 04:15] LABS: BUN/Creatinine Ratio 27.8
--- NOTE | 2020-06-19 05:30 | NUR ---
CHG BATH AND PARTIAL LINEN CHANGE. IT IS A CHALLENGE TO KEEP HER DRY. THE G/J TUBE SITE AND HOLE NEXT TO IT LEAK CONTINUOUSLY. G IS TO SUCTION, COLOR IS A DARK BROWN. NOTHING DRAINED FROM THE J TUBE. G PORTION DRAINED 200, BILIARY TUBE DRAINED 180CC OF BILE LIQUID.
[2020-06-19] MEDS: ACCU-CHEK COMFORT CURVE STRIP VI SCH ×4 (06:00→18:07)
[2020-06-19] MEDS: InsuLIN REG 1unit/0.01ml Soln (100units/ml) SC SCH ×4 (06:00→18:00)
--- NOTE | 2020-06-19 07:30 | NUR ---
REPORT REPORT RECEIVED FROM STAN RNLYNDSEY. BEDSIDE CHECK DONE. PT RESTING WITH EYES CLOSED. AND IN NO DISTRESS. CONTINUE TO MONITOR.
--- NOTE | 2020-06-19 08:10 | NUR ---
ASSESSMENT PT LAYING IN BED WITH EYES CLOSED. OPENS EYES BRIEFLY. ABLE TO TELL ME HER NAME AND ONLY. VERY SLIGHT MOVEMENT OF EXTREMITIES NOTED. LUNGS CLEAR ANTERIOR AND LATERALLY AND WITH INSPIRATORY CRACKLES IN THE LOWER LOBES POSTERIOR. NO COUGH NOTED. OXYMIZER AT 6 L/M WITH O2 SAT OF 100%. TELE SR 81 WITH BBB AND MILDLY ELEVATED ST IN LEAD V AND DEPRESSED ST IN LEAD II. PALPABLE PULSES TO ALL EXTREMITIES, WEAK TO FEET. FEET COOL TO THE TOUCH WITH CAP REFILL 4-5 SECONDS. ABD SOFT AND TENDER TO TOUCH WITH FEW BOWEL SOUNDS NOTED. MIDLINE INCISION WITH DRESSING OVER LOWER HALF SMALL AMOUNT OF SEROSANGUINOUS FLUID DRAINING FROM INCISION. BILIARY DRAIN TO LUQ ABD, DRAINING OILY LOOKING CLEAR BROWN FLUID. GASTRO-JEJUNOSTOMY TUBE WITH COLOSTOMY BAG OVER INSERTION SITE AND HOLE BELOW (PER FAMILY, PREVIOUS G-J TUBE SITE) DRAINING SMALL AMOUNT OF DARK BROWN FLUID. JEJUNOSTOMY TUBE TO GRAVITY DRAINAGE BAG WITH SCANT AMOUNT OF MILKY TAUPE COLORED FLUID, AND GASTROSTOMY TUBE TO LIS DRAINING DARK BROWN FLUID. JONES CATHETER DRAINING LINCOLN URINE. PT TURNED TO HER RIGHT SIDE. OPTIFOAM DRESSING IN PLACE TO SACRUM OVER UNSTAGEABLE WOUND WITH LEATHERY BROWN SURFACE. DRAINING SMALL AMOUNT OF THIN SEROSANGUINOUS FLUID. RAILS UP X4 AND BED IN LOW POSITION FOR PT SAFETY. CONTINUE TO MONITOR.
--- NOTE | 2020-06-19 08:52 | NUR ---
MD VISIT PT SEEN AND EXAMINED BY DR BENITO. UPDATED HIM ON THE PT'S HISTORY, RECENT SURGERY AND CURRENT CONDITION. HAVE REQUESTED PT'S MEDICAL RECORDS FROM [facility] YESTERDAY , BUT HAVE NOT YET RECEIVED . WILL SEND REQUEST AGAIN AND NOTIFY DR BENITO WHEN THEY ARE RECEIVED.
--- NOTE | 2020-06-19 09:10 | NUR ---
MRI SPOKE WITH EMY SUPERVISOR PAYROLL, REGARDING PT'S ORDERED MRI OF THE HEAD. UNABLE TO TAKE PT SHE IS ON IV LEVOPHED AND PT CANNOT BE ON IVF IN THE MRI. PAGING DR BLACK TO MAKE AWARE.
--- NOTE | 2020-06-19 09:18 | NUR ---
MD/MRI PAGED AND SPOKE WITH DR BLACK. MADE HIM AWARE THAT PT UNABLE TO HAVE MRI SHE IS STILL ON IV LEVOPHED AND PT CAN'T BE ON IVF FOR THE MRI. DC MRI AND DO A CT OF THE HEAD WITHOUT CONTRAST INSTEAD.
--- NOTE | 2020-06-19 09:53 | NUR ---
FAMILY RECEIVED A CALL FROM PT'S SIGNIFICANT OTHER, GEOFF. AFTER VERIFYING THE PASSWORD, I UPDATED HER AND ANSWERED HER QUESTIONS.
[2020-06-19] MEDS: MORPHINE SULF INJ 2 MG/ML SYRINGE 1ML IV PRN ×2 (10:32→16:12)
[2020-06-19] MEDS: levoFLOXacin 500MG 100 ML IV SCH (10:32)
[2020-06-19] MEDS: PANTOPRAZOLE 40 MG/10 ML VIAL INJ IV SCH (10:32)
[2020-06-19] MEDS: LEVOTHYROXINE SODIUM 100 MCG/5 ML INJ IV SCH (10:33)
[2020-06-19] MEDS: ASPirin 81 mg TAB PO SCH (10:33)
[2020-06-19] MEDS: AMIODARONE HCL 200 MG TAB PO SCH (10:33)
[2020-06-19] MEDS: PARoxetine 20 MG TAB PO SCH (10:33)
[2020-06-19] MEDS: OXYBUTYNIN CHL 5 MG TAB PO SCH (10:34)
--- NOTE | 2020-06-19 11:46 | NUR ---
Nutrition Assessment/consult Notes please see attached link for complete assessment Est energy needs ABW 83 [id number] kcal (20-23 kcal/kg ABW), Est protein needs: 83-91g (1.0-1.1g/kg ABW r/t elev T hypoalb.) Will reassess prn Addendum: 06/19/20 at [address] Amended: Links added.
--- NOTE | 2020-06-19 13:17 | NUR ---
CARDIO NEURO TECHMERLENE, AT THE BEDSIDE AND PREPPING PT FOR EEG.
--- NOTE | 2020-06-19 16:15 | NUR ---
EEG-ELECTROENCEPHALOGRAM COMPLETED @ 14:05.
--- NOTE | 2020-06-19 17:04 | NUR ---
DR BLACK HERE AND MADE AWARE OF HEAD CT RESULTS. IT RECOMMENDS A MRI FOLLOW UP BUT PT STILL ON LEVOPHED DRIP, SO UNABLE TO GO.
--- NOTE | 2020-06-19 18:50 | NUR ---
FAMILY RECEIVED A PHONE CALL FROM PT'S PARTNER, GEOFF, AND AFTER VERIFYING PASSWORD, I UPDATED HER ON THE PT'S CONDITION AND ANSWERED HER QUESTIONS.
--- NOTE | 2020-06-19 19:00 | NUR ---
HAVE TRIED TO ACQUIRE PT'S MEDICAL RECORDS FROM [facility] THESE LAST 2 DAYS AND CONSTANTLY RECEIVE A BUSY SIGNAL. HAVE TRIED 2 DIFFERENT NUMBERS: [phone] AND [phone]. DRAIN OUTPUTS FOR DAY SHIFT JONES CATHETER 1150 BILIARY DRAIN 250 [address] 75 J TUBE 5 AND LEAKAGE FROM AROUND J-G TUBE APPROX 10 ML
--- NOTE | 2020-06-19 19:16 | NUR ---
REPORT REPORT GIVEN TO LYNDSEY PIERCE RN.
--- NOTE | 2020-06-19 20:00 | NUR ---
ADMITTED ON 06/17/20 FOR SHORTNESS OF BREATH. ARRIVED WITH A LARGE , OPEN, FULL THICKNESS PRESSURE WOUND ON HER SACRUM. SKIN IS JAUNDICE. HEELS ARE RED AND BLANCHABLE. MOUTH BREATHING. TONGUE IS DRY AND LIPS SCALY. ORAL CARE DONE.LUNGS CLEAR, DIM IN BASES. ON 6L OXYMIZER. COARSE, NONPRODUCTIVE COUGH. ORALLY SUCTIONED AND SUCTIONED DOWN HER RIGHT NARE FOR THICK CREAMY SECRETIONS. MOISTURIZER TO LIPS AND TONGUE. ABDOMEN IS ROUND. MIDLINE INCISION HAS A CLEAN, DRY, SECURE ABD DRESSING. TO THE LEFT OF THAT IS A BILIARY TUBE TO DOWN DRAIN BILE BAG. THERE IS BILE LIQUID IN THE BAG. UNDER THAT IS A G/J TUBE. THE G PORTION IS TO LIS SUCTION AND IS DRAINING COFFEE GROUND LIQUID. THE J PORTION IS HOOKED TO A DOWN DRAIN BAG AND IS DRAINING A MILKY TAUPE COLOR LIQUID IN SMALL AMOUNTS. THERE IS AN OPEN HOLE TO THE LEFT OF THE G/J TUBE. BOTH ARE LEAKING BROWN LIQUID. JONES IN PLACE DRAINING AN LINCOLN LIQUID WITH LIGHT SHAKIR SLUDGE IN LOWER BAG. ALL PULSES ARE PALPABLE. MID ANKLE DOWN THE FEET ARE COLD. SOCKS ARE ON. TEMP IS 100.3. SBP STABLE WITH LEVOPHED SUPPORT. MAIN IV FLUID AT 100CC/HR. BNP IS NORMAL. WBC IS 10.8. PATIENT HAS A DOUBLE LUMEN PICC THAT WAS PLACED OUTSIDE THE HOSPITAL. HAS A 22g IN THE THAT IS CURRENTLY NOT IN USE.
--- NOTE | 2020-06-19 20:30 | NUR ---
PATIENT IS COMPLAINING THAT HER SACRAL WOUND HURTS. RECENT CHANGE OF RECTAL AREA WOUND DRESSING. PATIENT IS MUCH MORE ALERT TONIGHT. FEVER HAS BROKEN. APPROPRIATE ANSWERS TO QUESTIONS. SPEECH IS MUCH MORE CLEAR NOW THAT HER MOUTH IS LESS DRY. ORAL CARE DONE AND MOISTURIZER APPLIED.ORIENTED. LESTER TO COMMAND. WEAK. LEGS MOVE LESS THAN ARMS. LUNGS CLEAR. EASIER FOR HER TO COUGH TILL CLEAR. 6L OXYMIZER. MIDLINE ABDOMINAL INCISION COVERED WITH AN ABD THAT IS CLEAN AND DRY. TO THE LEFT IS A BILIARY TUBE TO A BILE BAG. IT IS DRAINING BILE COLOR LIQUID. EMPTIED 60CC. BELOW THAT IS A G/J TUBE. THE G PORTION IS TO LIS. AMOUNT IS LESS THAN YESTERDAY, THE COLOR IS STILL THE SAME, DARK BROWN. THE J PORTION IS TO DOWN DRAIN BAG. NO DRNG. JONES DRAINING BILE COLOR LIQUID TO DOWN DRAIN BAG IN GOOD AMOUNTS. LEVOPHED SUPPORTING THE BP. UNABLE TO WEAN IT DOWN AT THIS TIME. PLACED WATER IN MOUTH, SHE SWIRLED IT AND SPIT IT OUT. PITTING EDEMA IN BOTH LEGS. HAVE NOT RECEIVED HOSPITAL RECORDS FROM [facility]. EVERY FAX HAS NOT GONE THROUGH. ATTEMPTED THE TWO GIVEN NUMBERS, NO RESPONSE.
[2020-06-19] MEDS: NOREPINEPHRINE 8 MG/250ML KIT 250 ML IV SCH (21:00)
[2020-06-19 21:02] LABS: % Iron Saturation 8.8 % (15-50)
--- NOTE | 2020-06-19 22:20 | NUR ---
FOUND PATIENT LYING ON BACK, BUT SHE WANTED TO TURN TO THE RIGHT. DID THAT. ROLLING OVER HER SACRUM CAUSES HER PAIN. LUNGS CLEAR. 6L OXYMIZER.O2 SAT 95%. SBP IN THE 90S , UNABLE TO WEAN LEVOPHED AT THIS TIME. MEDS IN G PORT, THEN CLAMPED. ORIENTED. APPROPRIATE. LESTER. TOO WEAK TO TURN ON OWN.
[2020-06-19] MEDS: ATORVASTATIN 20 MG TAB PO SCH (22:26)
[2020-06-19] MEDS: CARBIDOPA W LEVODOPA 25/100mg TABLET PO SCH (22:26)
[2020-06-19] MEDS: AMITRIPTYLINE HCL 10 MG TAB PO SCH (22:26)
[2020-06-20] VITALS (94 sets, daily range): BP systolic 84–121; BP diastolic 43–59
--- NOTE | 2020-06-20 | NUR ---
REPOSITIONED OFF SACRUM. ORAL CARE DONE. BOOSTED UP IN BED . MORPHINE GIVEN FOR PAIN IN SACRUM. NSR WITHOUT ECTOPY.
[2020-06-20] MEDS: MORPHINE SULF INJ 2 MG/ML SYRINGE 1ML IV PRN ×4 (00:12→18:03)
[2020-06-20] MEDS: ACCU-CHEK COMFORT CURVE STRIP VI SCH ×4 (00:12→18:10)
--- NOTE | 2020-06-20 01:53 | NUR ---
DR Jaycob HAGAN HERE. [facility] DR MALLOY'S CELL PHONE NUMBER. DR Jaycob HOWARD SPOKE WITH THE PATIENT.
--- NOTE | 2020-06-20 03:30 | NUR ---
REMOVED ALL THE ABDOMINAL DRESSINGS AND OSTOMY BAG THAT WAS SURROUNDING THE G/J TUBE. AREA CLEANED WITH ANTIBACTERIAL SOAP AND DRIED. BILI TUBE SITE CLEANED WITH CHLOROPREP AND NEW BIFURCATED FOAM DRESSING APPLIED. LOWER ONE THIRD OF THE ABDOMINAL INCISION IS DRAINING YELLOW LIQUID. AREA CLEANED WITH CHLOROPREP AND NEW FOAM DRESSING APPLIED. DINORAH ARE INTACT. THE SKIN SURROUNDING THE G/J TUBE IS RED. THE OLD G/J SITE IS APPROXIMATELY AND INCH AWAY FROM THE NEW SITE. IT IS OPEN WITH SLOUGH ON TOP OF IT AND IT DRAINS A MILKY TAUPE DRNG. A NEW SEPERATE OSTOMY BAG HAS BEEN PLACED OVER THE OLD SITE AND IS CAPPED. AN OSTOMY BAG BOTTOM WAS CUT AND WE THREADED THROUGH THE G/J TUBE HUB, WRAPPED THE CONNECTION AND REHOOKED THE GASTRIC PORTION TO SUCTION.
--- NOTE | 2020-06-20 05:05 | NUR ---
[facility]
[2020-06-20] MEDS: InsuLIN REG 1unit/0.01ml Soln (100units/ml) SC SCH ×4 (06:00→18:00)
--- NOTE | 2020-06-20 06:00 | NUR ---
REQUESTED PAIN MEDICATION FOR SACRAL WOUND DISCOMFORT. DRESSING HAS JUST A SMALL AMOUNT OF DRNG
--- NOTE | 2020-06-20 07:30 | NUR ---
Opening Shift Note Assumed care of patient, laying in bed, eyes closed, open eyes to voice, no response to some of the assessment questions, patient medicated with Morphine at 0621 for pain . No S/S of distress/SOB or pain. Biliary tube draining dark alexandrea, midline incision dressing dry and intact, G-J tube - gastric to LIS draining brown liquid, jejunostomy clamped. Tiny on hole on lower abdomen, draining to ostomy bag. See interventions for complete assessment. Bed locked on low position, side rails up x2, bed alarms on at all times, call church within reach, instructed on POC and to call for assist PRN, will continue to monitor for changes Q1hr and PRN.
[2020-06-20] MEDS: SODIUM CHLORIDE 0.9% 1,000 ML IV SCH ×2 (07:50→18:11)
[2020-06-20] MEDS: OXYBUTYNIN CHL 5 MG TAB PO SCH ×2 (10:00→10:50)
[2020-06-20] MEDS: PARoxetine 20 MG TAB PO SCH ×2 (10:00→10:14)
[2020-06-20] MEDS: ASPirin 81 mg TAB PO SCH ×2 (10:00→10:15)
[2020-06-20] MEDS: AMIODARONE HCL 200 MG TAB PO SCH ×2 (10:00→10:15)
[2020-06-20] MEDS: levoFLOXacin 500MG 100 ML IV SCH (10:13)
[2020-06-20] MEDS: LEVOTHYROXINE SODIUM 100 MCG/5 ML INJ IV SCH (10:14)
[2020-06-20] MEDS: PANTOPRAZOLE 40 MG/10 ML VIAL INJ IV SCH (10:14)
--- NOTE | 2020-06-20 10:32 | NUR ---
Dr Walker at bedside, updated on patient's status. Patient seen and examined. Will carry out new orders.
--- NOTE | 2020-06-20 10:34 | NUR ---
Received call from patient's partner Gwen who's able to provide password. Updated on patient's status and POC, verbalized understanding. All questions and concerns addressed.
--- NOTE | 2020-06-20 11:00 | NUR ---
Crushed all pills, Dr Delarosa came to bedside, orders received to keep patient NPO and do not use G-J tube for now until we get patient's medical records from [facility] and find out what's going on. Will waste medications and carry out orders from MD.
[2020-06-20 13:31] LABS: Basophils # (auto) 0.1 10 ^3/uL (0-0.2); Basophils % (auto) 0.9 % (0.0-2.0); Eosinophils # (auto) 0.4 10 ^3/uL (0-0.8); Eosinophils % (auto) 4.8 % (0.0-7.0); Hematocrit 28.3 % (36.0-46.0); Lymphocytes # (auto) 0.9 10 ^3/uL (0.4-5.4); Lymphocytes % (auto) 11.7 % (10.0-50.0); Mean Corpuscular Hgb Conc. 31.9 g/dL (32.0-36.0); Mean Corpuscular Volume 100.3 fL (80.0-100.0); Monocytes # (auto) 0.7 10 ^3/uL (0-1.3); Monocytes % (auto) 9.5 % (0.0-12.0); Neutrophils # (auto) 5.7 10 ^3/uL (1.6-8.6); Neutrophils % (auto) 73.1 % (37.0-80.0); Platelet Count (auto) 229 10^3/uL (140-450); Red Blood Cells 2.82 10^6/uL (4.0-5.20); Red Cell Distribution Width 16.4 % (11.8-14.3); White Blood Cell 7.8 10^3/uL (4.4-10.8)
[2020-06-20 13:44] LABS: Albumin 1.4 g/dL (3.4-5.0); Calcium 7.9 mg/dL (8.5-10.1); Potassium 3.6 mmol/L (3.5-5.1)
[2020-06-20 13:47] LABS: BUN/Creatinine Ratio 21.9; Total Protein 6.9 g/dL (6.4-8.2)
--- NOTE | 2020-06-20 13:50 | NUR ---
Called Dr Gudino at telephone number [phone] regarding patient's Medical Records. stated "I already spoke to Dr Mcneil couple of days ago, what specific Medical Records you needed from me. I already explained to Dr Mcneil the surgery that I did." Paged Dr Mcneil, awaiting call back.
--- NOTE | 2020-06-20 14:34 | NUR ---
Spoke to Gwen regarding getting patient's Medical Records from [facility], Gwen verbalized understanding stating "I will do my best."
--- NOTE | 2020-06-20 16:12 | NUR ---
Patient's medical records received from [facility] via fax, inserted in patient's hard chart. Will inform .
[2020-06-20] MEDS ORDERED: IOHEXOL 300 MG/ML 100ML BOTTLE IJ ONE (16:52)
--- NOTE | 2020-06-20 17:00 | NUR ---
Patient out of room to CT scan.
--- NOTE | 2020-06-20 17:30 | NUR ---
Patient back to room from CT scan.
--- NOTE | 2020-06-20 18:00 | NUR ---
G-tube 159ml brownish drain 150ml greenish biliary drain 50 ml white thick lower abdomen drain
[2020-06-20] MEDS: NOREPINEPHRINE 8 MG/250ML KIT 250 ML IV SCH (18:12)
--- NOTE | 2020-06-20 19:35 | NUR ---
ADMITTED ON 06/17/20 FOR SHORTNESS OF BREATH. ARRIVED WITH A LARGE , OPEN, FULL THICKNESS PRESSURE WOUND ON HER SACRUM. SKIN IS JAUNDICE. HEELS ARE RED AND BLANCHABLE. MOUTH BREATHING. ORAL CARE DONE.LUNGS CLEAR, DIM IN BASES. ON 6L OXYMIZER. MOISTURIZER TO LIPS AND TONGUE. ABDOMEN IS ROUND. MIDLINE STAPLED INCISION. WOUND EDGES ARE RED. LOWER 1/3 OF INCISION IS DRAINING YELLOW DRNG. TO A FOAM DRESSING. TO THE LEFT OF THAT IS A BILIARY TUBE TO DOWN DRAIN BILE BAG. THERE IS BILE LIQUID IN THE BAG. UNDER THAT IS A G/J TUBE. THE G PORTION IS TO LIS SUCTION AND IS DRAINING COFFEE GROUND LIQUID. THE J PORTION IS CLAMPED. THERE IS AN OPEN HOLE TO THE RIGHT LATERAL PORTION OF THE G/J TUBE, APPROXIMATELY ONE INCH FROM IT. BOTH ARE LEAKING BROWN LIQUID. JONES IN PLACE DRAINING AN LINCOLN LIQUID WITH LIGHT SHAKIR SLUDGE IN LOWER BAG. ALL PULSES ARE PALPABLE. MID ANKLE DOWN THE FEET ARE COLD. . SBP STABLE WITH LEVOPHED SUPPORT. UNABLE TO WEAN AT THIS TIME. MAIN IV FLUID AT 100CC/HR. BNP IS NORMAL. WBC IS 7.8 PATIENT HAS A DOUBLE LUMEN PICC THAT WAS PLACED AT AN OUTSIDE HOSPITAL. HAS A 22g IN THE LH THAT IS CURRENTLY NOT IN USE. PREFERS SLEEPING FLAT. SACRAL WOUND CAUSES HER A LOT OF PAIN. PAIN MEDS BEING GIVEN. +2 PITTING EDEMA OF BOTH LEGS. SCDS ON. YELLOW DRNG FROM THE VAGINA. GEOFF, HER SPOKESPERSON, SPOKE TO PATIENT AT LENGTH AND IS REQUESTING TO GO BACK TO [facility]. [facility] MEDICAL RECORDS HERE. PENDING CHEST CT RESULTS. NO NUTRITION AT THIS TIME. JAUNDICE, ICTERIC.DAILY SACRAL DRESSING DONE AT 1800.
--- NOTE | 2020-06-20 21:30 | NUR ---
DR Jaycob HOWARD HERE, SPOKE WITH PATIENT. PATIENT IS REQUESTING TRANSFER. TRANSFER PAPERS SIGNED BY DR Jaycob HOWARD. CALLED THE COREMAKING MACHINE OPERATOR AT [facility]. THE TRANSFER CENTER DEFERS TO THE COREMAKING MACHINE OPERATOR ON THE WEEKEND. PER HER REQUEST, WE FAXED THE CHART TO HER TO START THE PROCESS FOR TRANSFER.
[2020-06-20] MEDS: AMITRIPTYLINE HCL 10 MG TAB PO SCH (22:00)
[2020-06-20] MEDS: CARBIDOPA W LEVODOPA 25/100mg TABLET PO SCH (22:00)
[2020-06-20] MEDS: ATORVASTATIN 20 MG TAB PO SCH (22:00)
--- NOTE | 2020-06-20 22:00 | NUR ---
MEDICATIONS PER G TUBE HELD BY ORDER FROM .
[2020-06-21] VITALS (92 sets, daily range): BP systolic 87–135; BP diastolic 44–61
--- NOTE | 2020-06-21 | NUR ---
REPOSITIONED. O2 SATURATION IMPROVING. UNABLE TO WEAN DOWN THE LEVOPHED. FOR THE MOST PART, THE SYSTOLIC IS IN THE 90S. GJ TUBE NOT IN USE. LESS DRNG COMING FROM IT. NSR WITHOUT ECTOPY. ACCUCHECK NORMAL.
--- NOTE | 2020-06-21 02:00 | NUR ---
VSS. UNABLE TO WEAN DOWN THE LEVOPHED. BP 109/58. NSR WITHOUT ECTOPY.
[2020-06-21] MEDS: SODIUM CHLORIDE 0.9% 1,000 ML IV SCH ×2 (04:00→15:06)
--- NOTE | 2020-06-21 04:00 | NUR ---
REPOSITIONED. HAS BEEN VERY SLEEPY TONIGHT. WAKES UP FOR A MOUTH SWAB, THAT'S IT. LUNGS CLEAR. NSR WITHOUT ECTOPY.
--- NOTE | 2020-06-21 04:30 | NUR ---
MIDLINE INCISION: ABOUT AN INCH OF THE LOWER PORTION THAT HAS DEHISCED. SMALL AMOUNT OF BROWN/YELLOW DRNG. AREA CLEANED WITH CHLOROPREP WAND AND NEW FOAM DRESSING APPLIED.
[2020-06-21 04:58] LABS: Basophils # (auto) 0.1 10 ^3/uL (0-0.2); Basophils % (auto) 0.9 % (0.0-2.0); Eosinophils # (auto) 0.4 10 ^3/uL (0-0.8); Eosinophils % (auto) 5.2 % (0.0-7.0); Hematocrit 28.1 % (36.0-46.0); Hemoglobin 8.8 g/dL (12.2-16.2); Mean Corpuscular Hemoglobin 31.7 pg (28.0-32.0); Mean Corpuscular Hgb Conc. 31.4 g/dL (32.0-36.0); Monocytes # (auto) 0.7 10 ^3/uL (0-1.3); Monocytes % (auto) 10.4 % (0.0-12.0); Neutrophils # (auto) 4.9 10 ^3/uL (1.6-8.6); Neutrophils % (auto) 69.5 % (37.0-80.0); Platelet Count (auto) 231 10^3/uL (140-450); Red Blood Cells 2.78 10^6/uL (4.0-5.20); Red Cell Distribution Width 16.1 % (11.8-14.3); White Blood Cell 7.1 10^3/uL (4.4-10.8)
[2020-06-21 05:12] LABS: Albumin 1.3 g/dL (3.4-5.0); Potassium 3.4 mmol/L (3.5-5.1)
[2020-06-21 05:15] LABS: BUN/Creatinine Ratio 16.9
[2020-06-21 05:18] LABS: Bilirubin, Total 5.8 mg/dL (0.2-1.0); Total Protein 6.8 g/dL (6.4-8.2)
--- NOTE | 2020-06-21 05:18 | NUR ---
DECREASED THE OXYMIZER TO 4L. O2 SAT DECREASED TO 98%.
[2020-06-21] MEDS: InsuLIN REG 1unit/0.01ml Soln (100units/ml) SC SCH ×4 (06:00→17:27)
[2020-06-21] MEDS: ACCU-CHEK COMFORT CURVE STRIP VI SCH ×4 (06:19→17:28)
--- NOTE | 2020-06-21 06:32 | NUR ---
CHANGED TO NASAL CANNULA. 2L KILN CHARGER . O2 SAT IS 95%
--- NOTE | 2020-06-21 07:45 | NUR ---
Opening Shift Note Assumed care of patient, awake and alert, complaining of pain and crying, inform patient that will give her Morphine for pain management. No S/S of distress/SOB noted, on O2 NC 2 LPM, O2 saturation 95-96%. Instructed on POC and to call for assist PRN, will continue to monitor for changes Q1hr and PRN. Mouth care provided , patient stated that doesn't like the test of mouth wash. Reposition at this time. Abdominal soft, will continue to monitor for the drainage. No fever noted. Continue IV and Levophed.
[2020-06-21] MEDS: MORPHINE SULF INJ 2 MG/ML SYRINGE 1ML IV PRN ×2 (08:02→13:35)
[2020-06-21] MEDS: AMIODARONE HCL 200 MG TAB PO SCH (10:00)
[2020-06-21] MEDS: ASPirin 81 mg TAB PO SCH (10:00)
[2020-06-21] MEDS: OXYBUTYNIN CHL 5 MG TAB PO SCH (10:00)
[2020-06-21] MEDS: PARoxetine 20 MG TAB PO SCH (10:00)
[2020-06-21] MEDS: levoFLOXacin 500MG 100 ML IV SCH (11:53)
[2020-06-21] MEDS: LEVOTHYROXINE SODIUM 100 MCG/5 ML INJ IV SCH (11:53)
[2020-06-21] MEDS: PANTOPRAZOLE 40 MG/10 ML VIAL INJ IV SCH (11:53)
[2020-06-21] MEDS: NOREPINEPHRINE 8 MG/250ML KIT 250 ML IV SCH (15:07)
--- NOTE | 2020-06-21 15:25 | NUR ---
Received a call from Dr. Candida MD spoke to Dr. Gudino from [facility] regarding transferring. Dr. Gudino will be Doctor who taking patient. Will call financial institution manager [phone].
--- NOTE | 2020-06-21 15:38 | NUR ---
Called and left the message to family independence case manager (given by Dr. Tirado) at [phone] regarding transfer to [facility] for HLOC.
--- NOTE | 2020-06-21 15:43 | NUR ---
Nutrition Followup Notes Pt wt is 102.8 kg Pt was awake when rounded this morning. Pt is with cancer, now with a nasal cannula. Pt is currently NPO d/t GTube drainage of 159ml. Est energy needs ABW 83 [id number] kcal (20-23 kcal/kg ABW), Est protein needs: 83-91g (1.0-1.1g/kg ABW r/t elev RFT hypoalb.) Will reassess prn LABS: GI: Pt with no BM today Last BM unknown per RN doc BS: 15 mod risk. Refer to wound assessment report for full details. PES: 1) Altered nutrition related lab values r.t current chronic medical condition aeb elev RFT severe hypoalb hyperglycemia 2) Impaired swallowing r.t chronic medical condition aeb pt`s with cancer has GJ tube Comments 1) advance diet as medically feasible 2) consider PN support to meet > 75% of needs if GI is not accessible 3) consider EN support with Vital AF @ 65 ml/hr per MD approval 4) consider Prostat 1 packet bid as RFT improve and GI is accessible 5) continue current plan of care
--- NOTE | 2020-06-21 16:32 | NUR ---
Called [phone], that number is belong to Dr. Gudino. Spoke to Dr. Gudino from [facility]. MD will taking patient in his care as Dr. Tirado mentioned. Paged Dr. Tirado and piano case maker (electrical parts reconditioner) again regarding transfer to [facility].
--- NOTE | 2020-06-21 16:50 | NUR ---
Dr. Tirado at the bedside, seen and examined patient at this time, POC discussed with patient, called and talked to Fiona on the phone [phone]. Dr. Tirado talking to Kary (case specialist) regarding transfer order. Spoke to Kary, will call [facility] transfer center [phone] and will fax patient information to [phone]. Received new orders from Dr. Tirado, will carry out.
[2020-06-21] MEDS ORDERED: VANCOMYCIN 1GM/250ML 250 ML IV ONE (17:00)
[2020-06-21] MEDS ORDERED: VANCOMYCIN PER PHARMACY 0 MG IV SCH (17:00)
[2020-06-21] MEDS: ENOXAPARIN SOD 100 MG/1 ML SYRINGE SC SCH (17:27)
--- NOTE | 2020-06-21 18:24 | NUR ---
Called [facility] transfer center at [phone], faxed Face sheet over to [phone]. Kary case loader operator will contact her insurance to get an authorization for transportation.
--- NOTE | 2020-06-21 19:01 | NUR ---
Received a call from Faby ([facility] transfer center), director of casework services is not available at this time, transferred a call to CN per requested.
--- NOTE | 2020-06-21 19:05 | NUR ---
LATE ENTRY TRANSFER RECEIVED PHONE CALL FROM FIDEL AT [facility] TRAN[facility]. PER FIDEL, THEY HAVE AN ACCEPTING DOCTOR AND A BED AVAILABLE FOR THIS PATIENT NOW BUT THERE IS NO INSURANCE APPROVAL FOR TRANSFER SO THEY CAN'T ACCEPT THIS PATIENT. Addendum: 06/24/20 at 0140 by Eva Yoo RN ERROR ON NAME MADAY PALMA
--- NOTE | 2020-06-21 19:51 | NUR ---
Report given to Sanchez burrell RN, aware about pending order that need to be done. Dr. Tirado made aware that still pending for getting the authorization from insurance, possible transfer to [facility] tomorrow.
--- NOTE | 2020-06-21 21:00 | NUR ---
LATE ENTRY NOTIFIED BOARDINGHOUSE KEEPER REGARDING PENDING INSURANCE APPROVAL FOR PATIENT'S TRANSFER.
[2020-06-21] MEDS: ATORVASTATIN 20 MG TAB PO SCH (22:00)
[2020-06-21] MEDS: CARBIDOPA W LEVODOPA 25/100mg TABLET PO SCH (22:00)
[2020-06-21] MEDS: AMITRIPTYLINE HCL 10 MG TAB PO SCH (22:00)
[2020-06-21] MEDS: MEROPENEM 1GM IVPB 100 ML IV SCH (22:21)
[2020-06-22] VITALS (89 sets, daily range): BP systolic 59–121; BP diastolic 28–77
[2020-06-22] MEDS: VANCOMYCIN 1GM/250ML 250 ML IV SCH ×3 (01:00→23:54)
[2020-06-22] MEDS: MORPHINE SULF INJ 2 MG/ML SYRINGE 1ML IV PRN ×3 (02:14→16:27)
[2020-06-22 04:10] LABS: Basophils # (auto) 0.1 10 ^3/uL (0-0.2); Basophils % (auto) 1.1 % (0.0-2.0); Eosinophils # (auto) 0.3 10 ^3/uL (0-0.8); Eosinophils % (auto) 3.8 % (0.0-7.0); Hematocrit 28.2 % (36.0-46.0); Lymphocytes # (auto) 0.9 10 ^3/uL (0.4-5.4); Lymphocytes % (auto) 12.7 % (10.0-50.0); Mean Corpuscular Hemoglobin 31.6 pg (28.0-32.0); Mean Corpuscular Hgb Conc. 31.8 g/dL (32.0-36.0); Mean Corpuscular Volume 99.5 fL (80.0-100.0); Monocytes # (auto) 0.8 10 ^3/uL (0-1.3); Monocytes % (auto) 10.6 % (0.0-12.0); Neutrophils # (auto) 5.1 10 ^3/uL (1.6-8.6); Neutrophils % (auto) 71.8 % (37.0-80.0); Platelet Count (auto) 261 10^3/uL (140-450); Red Blood Cells 2.84 10^6/uL (4.0-5.20); Red Cell Distribution Width 16.1 % (11.8-14.3); White Blood Cell 7.1 10^3/uL (4.4-10.8)
[2020-06-22 04:32] LABS: Potassium 3.2 mmol/L (3.5-5.1)
[2020-06-22 04:38] LABS: Albumin 1.4 g/dL (3.4-5.0); Bilirubin, Total 5.9 mg/dL (0.2-1.0); Calcium 7.7 mg/dL (8.5-10.1); Total Protein 6.8 g/dL (6.4-8.2)
[2020-06-22] MEDS: ENOXAPARIN SOD 100 MG/1 ML SYRINGE SC SCH ×2 (05:00→18:53)
[2020-06-22] MEDS: MEROPENEM 1GM IVPB 100 ML IV SCH ×3 (05:40→21:34)
[2020-06-22] MEDS: ACCU-CHEK COMFORT CURVE STRIP VI SCH ×5 (05:49→23:54)
[2020-06-22] MEDS: InsuLIN REG 1unit/0.01ml Soln (100units/ml) SC SCH ×5 (05:50→23:54)
--- NOTE | 2020-06-22 07:25 | NUR ---
REPOT REPORT RECEIVED FROM EMILY GARCIA, CARE ASSUMED. PT RESTING IN BED, VS STABLE.
--- NOTE | 2020-06-22 07:45 | NUR ---
INITIAL CONTACT PT IS AWAKE, ALERT, AND ORIENTED. PT ABLE TO MOVE ALL EXTREMITIES WITH EQUAL STRENGTH AND REPOSITION SELF ON SIDE WITH ASSISTANCE. AFEBRILE. DENIES PAIN WITHOUT ACTIVITY. PULSES PALPABLE BILATERALLY. SCD'S ON BILATERAL LOWER EXTREMITIES. LUNGS CLEAR ANTERIORLY. DENIES SHORTNESS OF BREATH OR COUGH. MULTIPLE GASTRIC DRAINS NOTED ABDOMINALLY. ABDOMINAL FISTULA DRAINING MEDIAL ABDOMEN AND BILIARY DRAIN TO GRAVITY. PT NPO EXCEPT FOR ICE CHIPS. SEE WOUND ASSESSMENT. LEFT UPPER ARM PICC (DOUBLE LUMEN), CDI. ALARMS IN PLACE, BED LOCKED IN LOWEST POSITION. PT REFUSION TO CHANGE POSITION AT THIS TIME. PT EDUCATED ON IMPORTANCE OF REPOSITIONING. PT VERBALIZE UNDERSTANDING. CALL LIGHT AND PERSONAL BELONGINGS WITHIN REACH.
--- NOTE | 2020-06-22 08:10 | NUR ---
MD VISIT ROUNDING AT BEDSIDE.
--- NOTE | 2020-06-22 08:14 | NUR ---
Weekend cash applications specialist-06/21/20 7858 I received a page from nurse Hayde letting me know that patient has order to transfer to higher level of care. I spoke with Dr. Tirado who told me that patient's surgeon at [facility] Dr. Gudino is willing to accept her. I told Hayde to call [facility] Transfer [facility] as well as to fax them a clinical packet-provided her with fax/phone number. I let Hayde know that because of the late hour, I most likely would not be able to get a hold of insurance for authorization for transfer. I called cash applications specialist [facility] Net Front End Developer Samantha [phone] x [phone]-no answer.
[2020-06-22] MEDS ORDERED: POTASSIUM CHLORIDE 40 MEQ, LIDOCAINE 1% (LOCAL ANESTH.) 4 ML in SODIUM CHL 0.9% 100 ML IV ONE (08:30)
--- NOTE | 2020-06-22 08:32 | NUR ---
SOCIAL SERVICE SPOKE WITH MAURICIO ZELAYA CURTAIN STRETCHER. SHE IS AWARE OF INSURANCE PENDING FOR TRANSFER. NO INFORMATION RECEIVED YET.
[2020-06-22] MEDS: AMIODARONE HCL 200 MG TAB PO SCH (09:46)
[2020-06-22] MEDS: PARoxetine 20 MG TAB PO SCH (09:46)
[2020-06-22] MEDS: ASPirin 81 mg TAB PO SCH (09:46)
[2020-06-22] MEDS: SODIUM CHLORIDE 0.9% 1,000 ML IV SCH ×3 (09:46→20:00)
[2020-06-22] MEDS: OXYBUTYNIN CHL 5 MG TAB PO SCH (09:46)
[2020-06-22] MEDS: LEVOTHYROXINE SODIUM 100 MCG/5 ML INJ IV SCH (10:05)
[2020-06-22] MEDS: PANTOPRAZOLE 40 MG/10 ML VIAL INJ IV SCH (10:05)
--- NOTE | 2020-06-22 10:05 | NUR ---
PAIN PATIENT C/O PAIN IN ABDOMEN 03/27 WHEN REPOSITIONING. PRN MORPHINE GIVEN. WILL CONTINUE TO MONITOR AND REASSESS.
--- NOTE | 2020-06-22 10:30 | NUR ---
[facility] TRANSF[facility] SPOKE WITH MINERVA REGARDING TRANSFER. SHE IS REQUESTING TO SPEAK WITH MAURICIO ZELAYA, SHIPPING AND RECEIVING MATERIAL HANDLER. CONTACT INFORMATION GIVEN.
--- NOTE | 2020-06-22 10:35 | NUR ---
Spoke with Rhonda WEST at [facility] [phone], faxed clinical packet to get authorization for transfer
--- NOTE | 2020-06-22 11:15 | NUR ---
Received a call from Rhonda at [facility] and gave authorization for the transfer, Hospital # [id number] and transportation # [id number].
--- NOTE | 2020-06-22 14:00 | NUR ---
Faxed return agreement to Wilda at [facility] [phone] for [facility] .
--- NOTE | 2020-06-22 14:41 | NUR ---
UPDATE FROM [facility]. AWARE THERE IS NO ICU BED AVAILABLE AT THIS TIME. UPDATED ON STATUS.
--- NOTE | 2020-06-22 15:00 | NUR ---
WOUND CARE PURULENT SANGUINOUS DRAINAGE NOTED FROM MEDIAL DINORAH AND J-G TUBE INSERTION SITE. DRESSING CHANGES PERFORMED ON ALL ABDOMINAL TUBE INSERTION SITES AND STAPLE SITES. NEW DRESSINGS APPLIED. PT TOLERATED WELL.
--- NOTE | 2020-06-22 15:38 | NUR ---
LABS BLOOD OBTAINED FOR LEFT UPPER ARM PICC FOR VANCOMYCIN TROUGH.
--- NOTE | 2020-06-22 15:51 | NUR ---
Called [facility] and spoke with [facility] train dispatcher and placed the patient on WILL CALL, for transport to [facility] when bed is available.
--- NOTE | 2020-06-22 16:20 | NUR ---
CARES PATIENT REPOSITIONED SELF ON SIDE. PARTIAL LINEN CHANGE AND GOWN CHANGE COMPLETE. VS REMAIN STABLE. PATIENT C/O 03/27 PAIN. PRN MORPHINE GIVEN AFTER ACTIVITY. PT REFUSING TO SIT WITH HEAD OF BED GREATER THAN 30 DEGREES DUE TO IT CAUSING INCREASED PAIN ON SACRUM. CALL LIGHT AND PERSONAL BELONGINGS WITHIN REACH.
--- NOTE | 2020-06-22 16:43 | NUR ---
PAGED DR.MOQATTASH Devries PAGED REGARDING PPN ORDER. AWAITING CALL BACK.
--- NOTE | 2020-06-22 17:10 | NUR ---
MD VISIT DR.MOQATTASH COLE AT BEDSIDE. MD AWARE OF INCISIONAL DRAINAGE, IV MEDICATION, AND VS. [facility] STILL PENDING.
[2020-06-22] MEDS ORDERED: TPN PER PHARMACY 0 ML IV SCH (17:15)
--- NOTE | 2020-06-22 17:20 | NUR ---
FAMILY PATIENT SIGNIFICANT OTHER GEOFF CALLED FOR UPDATE. PASSWORD PROVIDED.
[2020-06-22] MEDS ORDERED: DEXTROSE (50%) 50ML SYRG IV SCH (18:00)
--- NOTE | 2020-06-22 19:15 | NUR ---
REPORT REPORT GIVEN TO JANAY GARCIA, CARE ENDORSED. VS STABLE. PATIENT RESTING.
--- NOTE | 2020-06-22 19:26 | NUR ---
OPENING/INITIAL CONTACT RECEIVED REPORT AND ASSUMED CARE OF PT. PT IS AWAKE, ALERT, ORIENTED AND RESTING IN BED WITH NO S/S OF DISTRESS NOTED. 2L NC APPLIED- RR AND SP02 STABLE. LEVOPHED GTT AND FLUIDS RUNNING PER MD ORDERS. PT DENIES PAIN AT THIS TIME. DRAINS IN PLACE- PEG TUBE AND BILIARY DRAIN, FUNCTIONING APPROPRIATELY AT THIS TIME. DINORAH TO RLQ- DRESSING IS CLEAN, DRY, INTACT. MELANIE DOUBLE LUMEN PICC LINE IN PLACE. JONES CATHETER DRAINING DARK LINCOLN URINE APPROPRIATELY. PT PREFERS TO REMAIN IN SUPINE POSITION, WHEN ASKED IF SHE WOULD LIKE TO BE REPOSITIONED, SHE REFUSED AT THIS TIME. EDUCATED PT ON PLAN OF CARE, NEED FOR Q2H TURNING, FALL PRECAUTIONS, AND PAIN MANAGEMENT. PT IS PENDING TRANSFER TO [facility] WHEN BED BECOMES AVAILABLE. WILL CONTINUE TO MONITOR AND REASSESS PT.
[2020-06-22] MEDS ORDERED: AMINO ACID INFUSION IN D5W 2,000 ML IV NR (20:00)
[2020-06-22] MEDS: NOREPINEPHRINE 8 MG/250ML KIT 250 ML IV SCH (20:01)
--- NOTE | 2020-06-22 20:03 | NUR ---
ORAL TEMP READS 99.9- BLANKETS REMOVED AND COOL CLOTH APPLIED TO FOREHEAD.
--- NOTE | 2020-06-22 21:05 | NUR ---
FAMILY CALL SPOKE WITH PTS SIGNIFICANT OTHER GEOFF- PASSWORD VERIFIED. UPDATED HER ON PT CONDITION AND PLAN OF CARE OF NOW. ALL QUESTIONS AND CONCERNS ADDRESSED. VERBALIZED UNDERSTANDING.
[2020-06-22] MEDS: ATORVASTATIN 20 MG TAB PO SCH (21:34)
[2020-06-22] MEDS: AMITRIPTYLINE HCL 10 MG TAB PO SCH (21:34)
[2020-06-22] MEDS: CARBIDOPA W LEVODOPA 25/100mg TABLET PO SCH (21:35)
--- NOTE | 2020-06-22 21:37 | NUR ---
PT ABLE TO ASSIST WITH TURNING, TURNED TO LEFT SIDE.
[2020-06-23] VITALS (95 sets, daily range): BP systolic 83–125; BP diastolic 37–79
--- NOTE | 2020-06-23 02:27 | NUR ---
WOUND CARE MODERATE AMOUNT OF PURULENT SANGUINOUS DRAINAGE NOTED FROM MEDIAL DINORAH AND GJ TUBE/BILIARY DRAIN INSERTION SITE. DRESSING CHANGES PERFORMED ON ALL ABDOMINAL TUBE INSERTION SITES AND STAPLE SITES USING WOUND CLEANSER, GAUZE PADS, NON ADHESIVE OPTIFOAMS AND MEDIPORE TAPE TO SECURE DRESSINGS. SACRAL WOUND IRRIGATED WITH WOUND CLEANSER AND NOTED TO BE BLACKENED WITH YELLOW AREAS AND DRAINING A SMALL TO MODERATE AMOUNT. PT TOLERATED WELL. MORPHINE ADMINISTERED FOR PAIN AND GOWN CHANGED DUE TO SATURATION. ALL DRESSINGS ARE TIMED, DATED, AND INITIALED BY THIS RN.
[2020-06-23] MEDS: MORPHINE SULF INJ 2 MG/ML SYRINGE 1ML IV PRN ×2 (02:31→14:30)
[2020-06-23] MEDS: ENOXAPARIN SOD 100 MG/1 ML SYRINGE SC SCH ×2 (04:31→17:39)
[2020-06-23 04:51] LABS: Basophils # (auto) 0.1 10 ^3/uL (0-0.2); Eosinophils # (auto) 0.3 10 ^3/uL (0-0.8); Eosinophils % (auto) 3.7 % (0.0-7.0); Hematocrit 27.6 % (36.0-46.0); Hemoglobin 8.9 g/dL (12.2-16.2); Lymphocytes # (auto) 1.1 10 ^3/uL (0.4-5.4); Lymphocytes % (auto) 14.9 % (10.0-50.0); Mean Corpuscular Hgb Conc. 32.3 g/dL (32.0-36.0); Monocytes # (auto) 0.8 10 ^3/uL (0-1.3); Monocytes % (auto) 10.6 % (0.0-12.0); Neutrophils # (auto) 4.9 10 ^3/uL (1.6-8.6); Neutrophils % (auto) 69.8 % (37.0-80.0); Platelet Count (auto) 246 10^3/uL (140-450); Red Blood Cells 2.79 10^6/uL (4.0-5.20); Red Cell Distribution Width 16.6 % (11.8-14.3); White Blood Cell 7.1 10^3/uL (4.4-10.8)
[2020-06-23 05:09] LABS: Albumin 1.3 g/dL (3.4-5.0); Calcium 7.4 mg/dL (8.5-10.1); Magnesium 1.6 mg/dL (1.6-2.6)
[2020-06-23 05:16] LABS: BUN/Creatinine Ratio 14.9; Bilirubin, Total 5.4 mg/dL (0.2-1.0); Phosphorus 1.9 mg/dL (2.5-4.90); Pre Albumin 6.3 mg/dL (20.0-40.0); Total Protein 6.6 g/dL (6.4-8.2)
--- NOTE | 2020-06-23 05:18 | NUR ---
FAMILY CALL SPOKE WITH PTS SIGNIFICANT OTHER GEOFF. UPDATED HER ON PT CONDITION THROUGHOUT THE NIGHT. VERBALIZED UNDERSTANDING. ALL QUESTIONS ADDRESSED AT THIS TIME.
[2020-06-23] MEDS: SODIUM CHLORIDE 0.9% 1,000 ML IV SCH ×2 (05:47→14:45)
[2020-06-23] MEDS: MEROPENEM 1GM IVPB 100 ML IV SCH ×3 (05:47→22:00)
[2020-06-23] MEDS: ACCU-CHEK COMFORT CURVE STRIP VI SCH ×3 (05:47→17:39)
[2020-06-23] MEDS: InsuLIN REG 1unit/0.01ml Soln (100units/ml) SC SCH ×3 (05:48→17:40)
--- NOTE | 2020-06-23 06:03 | NUR ---
TWICE ATTEMPTED TO CALL WHICHEVER MD IS COVERING FOR Nestor GARCIA TO MAKE THEM AWARE OF PTS POTASSIUM LEVEL OF 3.0. STUDENT SERVICES VICE PRESIDENT AT [employer] STATES THAT THEY DO NOT KNOW WHO IS COVERING AND ARE UNABLE TO TRANSFER THE CALL. CALLED CHO[facility] DIRECTLY AT [phone] AND THEY ARE UNABLE TO PROVIDE THE DIRECT HOSPITALIST LINE. WILL MAKE DAYSHIFT RN AWARE, POTASSIUM IS LOW BUT NOT CRITICAL AT THIS TIME. PT REMAINS ASYMPTOMATIC OF ANY S/S OF HYPOKALEMIA.
--- NOTE | 2020-06-23 07:18 | NUR ---
REPORT GIVEN TO RADHA LIU. MADE HER AWARE OF PTS K LEVEL. CARE ENDORSED.
--- NOTE | 2020-06-23 07:20 | NUR ---
REPORT REPORT RECEIVED FROM JANAY GARCIA, CARE ASSUMED.
--- NOTE | 2020-06-23 08:00 | NUR ---
INITIAL CONTACT PT IS AWAKE, ALERT, AND ORIENTED. PT ABLE TO MOVE ALL EXTREMITIES WITH EQUAL STRENGTH AND REPOSITION SELF ON SIDE WITH ASSISTANCE. AFEBRILE. DENIES PAIN AT THIS TIME WITHOUT ACTIVITY. PULSES PALPABLE BILATERALLY. SCD'S ON BILATERAL LOWER EXTREMITIES. LUNGS CLEAR ANTERIORLY. DENIES SHORTNESS OF BREATH OR COUGH, ON 2 L NASAL CANNULA. MULTIPLE GASTRIC DRAINS NOTED ABDOMINALLY. ABDOMINAL FISTULA DRAINING MEDIAL ABDOMEN AND BILIARY DRAIN TO GRAVITY. PT NPO EXCEPT FOR ICE CHIPS. SEE WOUND ASSESSMENT. LEFT UPPER ARM PICC (DOUBLE LUMEN), CDI. ALARMS IN PLACE, BED LOCKED IN LOWEST POSITION. PT REFUSION TO CHANGE POSITION AT THIS TIME. PT EDUCATED ON IMPORTANCE OF REPOSITIONING. PT VERBALIZE UNDERSTANDING. CALL LIGHT AND PERSONAL BELONGINGS WITHIN REACH.
--- NOTE | 2020-06-23 08:40 | NUR ---
PAGED PAGED REGARDING POTASSIUM LEVEL. AWAITING CALL BACK.
[2020-06-23] MEDS: PANTOPRAZOLE 40 MG/10 ML VIAL INJ IV SCH (09:06)
[2020-06-23] MEDS: AMIODARONE HCL 200 MG TAB PO SCH (09:06)
[2020-06-23] MEDS: LEVOTHYROXINE SODIUM 100 MCG/5 ML INJ IV SCH (09:06)
[2020-06-23] MEDS: PARoxetine 20 MG TAB PO SCH (09:06)
[2020-06-23] MEDS: OXYBUTYNIN CHL 5 MG TAB PO SCH (09:06)
[2020-06-23] MEDS: ASPirin 81 mg TAB PO SCH (09:06)
--- NOTE | 2020-06-23 09:22 | NUR ---
MD RETURNED PAGE DR.MOQATTASH Baez AWARE OF MORNING LABS. ELECTROLYTE REPLACEMENT OBTAINED. MD REQUESTING TO ROUND ON PATIENT TODAY.
[2020-06-23] MEDS: VANCOMYCIN 1GM/250ML 250 ML IV SCH ×2 (09:30→20:00)
[2020-06-23] MEDS ORDERED: POTASSIUM CHL 20MEQ/100ML 100 ML IV SCH (09:30)
[2020-06-23] MEDS: MAGNESIUM SULFATE 1GM/100ML 100 ML IV SCH ×2 (09:39→10:38)
[2020-06-23] MEDS ORDERED: POTASSIUM PHOSPHATE 44 MEQ in D5W 5% 250 ML IV ONE (10:30)
--- NOTE | 2020-06-23 12:23 | NUR ---
FAMILY PATIENT SIGNIFICANT OTHER CALLED FOR UPDATE. PASSWORD PROVIDED. ALL QUESTIONS AND CONCERNS ADDRESSED.
--- NOTE | 2020-06-23 13:22 | NUR ---
PAGED NOTIFIED OF RECONSULTATION FOR BED 104.
--- NOTE | 2020-06-23 13:40 | NUR ---
SURGICAL CONSULT SPOKE WITH REGARDING RECONSULTATION. MD STATED HE WILL NOT BE CONSULTING ON PATIENT DUE TO THE SURGICAL INTERVENTIONS NEEDED. PT PENDING TRANSFER.
--- NOTE | 2020-06-23 14:30 | NUR ---
PAIN PT C/O 7/10 PAIN IN ABDOMEN WHEN REPOSITIONING. PRN MORPHINE ADMINISTERED.
--- NOTE | 2020-06-23 14:48 | NUR ---
Nutrition Followup Notes Pt wt is 106.6 kg Pt was awake when rounded this morning. Pt it still NPO with TPN ordered at 43 ml/hr providing 1050 kcal, 50g protein and 850 NPCs. This provides 55-63% of energy needs and 55-60% of protein needs. Continue to advance TPN to meet >75% of needs. Est energy needs ABW 83 [id number] kcal (20-23 kcal/kg ABW), Est protein needs: 83-91g (1.0-1.1g/kg ABW r/t elev RFT hypoalb.) Will reassess prn LABS: Creat 0.47L, Ca 7.4L, Alb 1.3L, GLUC 126H GI: Pt with no BM today, pt with 475 ml of gastric drainage 06/23 per RN note BS: 14 mod risk. Refer to wound assessment report for full details. PES: 1) Altered nutrition related lab values r.t current chronic medical condition aeb elev RFT severe hypoalb hyperglycemia 2) Impaired swallowing r.t chronic medical condition aeb pt`s with cancer has GJ tube Comments 1) advance diet as medically feasible 2) Advance PN support to meet > 75% of needs if GI is not accessible 3) consider EN support with Vital AF @ 65 ml/hr per MD approval 4) consider Prostat 1 packet bid as RFT improve and GI is accessible 5) continue current plan of care f/u high 2-3 days
--- NOTE | 2020-06-23 15:02 | NUR ---
assessment Patient is a 54 year old female who is in ICU. Per patients Gwen prior to admission patient lived home with her and needed assistance. Patients PCP is Dr Greenberg. Patient has a wheelchair for home use. Patient has Pancreatic cancer. Patient is on service with [employer]. Patient has a ss consult for transfer to [facility]. Patient and Gwen agree to transfer. I informed Gwen I would continue to monitor and follow up as appropriate. I informed Gwen that the case management manager Mariah will be working on patients transfer. Gwen verbalized understanding. Addendum: 06/23/20 at 1506 by Manasa KIRK Amended: Links added.
--- NOTE | 2020-06-23 15:30 | NUR ---
BELONGINGS PT SIGNIFICANT OTHER BROUGHT CELL PHONE, EXTRUDER OPERATOR MULTIPLE, TWO READING GLASSES AND A CARD. CHARTED IN PERSONAL BELONGINGS FORM IN CHART. BELONGINGS LEFT AT BEDSIDE.
--- NOTE | 2020-06-23 16:00 | NUR ---
TOF TRAIN OF FOUR PERFORMED. 2/4 TICKS NOTED AT MA 5. CONTINUE PARALYTIC AT SAME RATE. Addendum: 06/23/20 at 1915 by Izabel Resendiz RN WRONG PATIENT DOCUMENTED
--- NOTE | 2020-06-23 16:04 | NUR ---
Left 2 messages during the day at the [facility] [phone], regarding the patients transfer to [facility], no return call at this time.
--- NOTE | 2020-06-23 17:00 | NUR ---
WOUND CARE SMALL AMOUNT OF PURULENT SANGUINOUS DRAINAGE NOTED FROM MEDIAL DINORAH AND GJ TUBE/BILIARY DRAIN INSERTION SITE. DRESSING CHANGES PERFORMED ON ALL ABDOMINAL TUBE INSERTION SITES AND STAPLE SITES USING WOUND CLEANSER, GAUZE PADS, NON ADHESIVE OPTIFOAM AND MEDIPORE TAPE TO SECURE DRESSINGS. ALL DRESSINGS ARE TIMED, DATED, AND INITIALED BY THIS RN. PT REPOSITIONED ON SIDE. PT DENIES NEED FOR PAIN MEDICATION AT THIS TIME. CALL LIGHT AND PERSONAL BELONGINGS PLACED WITHIN REACH.
--- NOTE | 2020-06-23 17:30 | NUR ---
MD UPDATE DR.MOQATTASH Baez CALLED FOR UPDATE. MD AWARE THE WILL NOT BE RECONSULTING ON PATIENT DUE TO PATIENT NEEDING A SURGICAL INTERVENTION THAT NEEDS TO BE PERFORMED BY AT [facility]. MD AWARE. UPDATED ON VITAL SIGNS, VASOPRESSOR THERAPY, AND STATUS. NO NEW ORDERS RECEIVED AT THIS TIME. WILL CONTINUE TO MONITOR.
--- NOTE | 2020-06-23 17:43 | NUR ---
[facility] SPOKE WITH INSTALLMENT ACCOUNT CHECKER. THEY DO NOT HAVE A BED AVAILABLE BUT PATIENT IS ON LIST FOR BED WHEN AVAILABLE.
--- NOTE | 2020-06-23 19:30 | NUR ---
REPORT RECEIVED AND ASSUMED CARE; SEE INTERVENTIONS FOR ASSESSMENT; VS STABLE AT THIS TIME WITH PT. ON LEVOPHED GTT; PT. ASLEEP IN BED WITH T.V. ON-EASILY AROUSABLE; WILL CONT. TO MONITOR.
--- NOTE | 2020-06-23 19:46 | NUR ---
REPORT REPORT GIVEN TO TRUE GARCIA, CARE ENDORSED.
[2020-06-23] MEDS ORDERED: TPN PER PHARMACY IV NR ×8 (20:00)
[2020-06-23] MEDS: CARBIDOPA W LEVODOPA 25/100mg TABLET PO SCH (22:00)
[2020-06-23] MEDS: ATORVASTATIN 20 MG TAB PO SCH (22:00)
[2020-06-23] MEDS: AMITRIPTYLINE HCL 10 MG TAB PO SCH (22:00)
--- NOTE | 2020-06-23 22:10 | NUR ---
UPDATED PT. GIRLFRIEND ON PLAN OF CARE OVER THE PHONE AFTER PASSWORD OBTAINED.
[2020-06-24] VITALS (92 sets, daily range): BP systolic 78–125; BP diastolic 36–64
[2020-06-24] MEDS: ACCU-CHEK COMFORT CURVE STRIP VI SCH ×4 (02:12→18:16)
[2020-06-24] MEDS: InsuLIN REG 1unit/0.01ml Soln (100units/ml) SC SCH ×4 (02:13→18:18)
[2020-06-24] MEDS: NOREPINEPHRINE 8 MG/250ML KIT 250 ML IV SCH ×2 (04:45→23:00)
[2020-06-24] MEDS: ENOXAPARIN SOD 100 MG/1 ML SYRINGE SC SCH ×2 (05:00→17:09)
[2020-06-24] MEDS: MEROPENEM 1GM IVPB 100 ML IV SCH ×3 (05:42→22:00)
[2020-06-24 06:49] LABS: Albumin 1.3 g/dL (3.4-5.0); BUN/Creatinine Ratio 12.5; Calcium 7.7 mg/dL (8.5-10.1); Magnesium 1.7 mg/dL (1.6-2.6); Potassium 3.2 mmol/L (3.5-5.1)
[2020-06-24 06:52] LABS: Bilirubin, Total 4.7 mg/dL (0.2-1.0); Phosphorus 2.3 mg/dL (2.5-4.90); Total Protein 6.6 g/dL (6.4-8.2)
--- NOTE | 2020-06-24 07:20 | NUR ---
REPORT REPORT RECEIVED FROM STAN RNTRUE. BEDSIDE CHEK DONE. PT STABLE WITH NO COMPLAINTS AT THIS TIME. CONTINUE TO MONITOR.
--- NOTE | 2020-06-24 07:30 | NUR ---
LEVOPHED BAG WAS CHANGED AT 2330 ON 06/23 AND SO BAG NOT CHANGED AT THIS TIME.
[2020-06-24] MEDS: VANCOMYCIN 1GM/250ML 250 ML IV SCH (07:45)
--- NOTE | 2020-06-24 08:30 | NUR ---
ASSESSMENT PT AWAKE AND A/O TO SELF, , PLACE AND SITUATION. VERY WEAK, UNABLE TO REPOSITION SELF IN BED. PT ON O2 AT 2 L/M VIA NC WITH O2 SAT OF 98%. LUNGS CLEAR ANTERIOR AND LATERAL BUT WITH INSPIRATORY CRACKLES IN THE POSTERIOR BASES. TELE SR WITH FIRST DEGREE HB, DEPRESSED ST IN LEAD II AND ELEVATED ST IN LEAD V. PALPABLE PULSES TO ALL EXTREMITIES, WEAK IN HER FEET. BOTH LEGS SLIGHTLY COOL FROM MID-CALF DOWN TO FEET. ABD SOFT WITH HYPOACTIVE BOWEL SOUNDS. MIDLINE ABD INCISION WITH DRY DRESSING IN PLACE. BILIARY DRAIN TO LUQ ABD, WITH OILY BROWN BILE FLUID DRAINING. JG TUBE TO LUQ WITH GT PORTION CLAMPED AND J TUBE PORTION DRAINING TO BAG. SMALL HOLE BELOW JG TUBE IS COVERED BY A COLOSTOMY BAG TO CATCH THE DRAINAGE WHICH IS DRAINING CLOUDY CREAMY FLORES FLUID. JONES CATHETER DRAINING LINCOLN COLORED URINE. SOME URINE LEAKED OUT UNDER THE PT. CARSON CARE GIVEN AND CAIR PADS CHANGED. PT TURNED TO HER RIGHT SIDE. OPTIFOAM DRESSING TO SACRUM OVER PRESSURE ULCER WITH SOME ESCHAR NOTED ALONG WITH SOME PINK TISSUE AND YELLOW SLOUGH. PT REFUSES TO HAVE HOB RAISED TO 30 DEGREES SHE STATES THAT IT PUTS TOO MUCH PRESSURE ON HER SACRUM. RAILS UP X4 AND BED IN LOW POSITION.
--- NOTE | 2020-06-24 08:48 | NUR ---
Called [facility] [phone], spoke with [place] athletic coordinator and stated the patient is still on the there list for a ICU bed and she would call as soon as one is available. Addendum: 06/24/20 at 0852 by Hazel Keller RN, CM The patient has been accepted at [facility] but there is no bed at this time.
[2020-06-24] MEDS: MORPHINE SULF INJ 2 MG/ML SYRINGE 1ML IV PRN ×5 (08:49→21:05)
--- NOTE | 2020-06-24 08:49 | NUR ---
PAIN PT WITH C/O PAIN TO HE "BUTT, WHERE THE WOUND IS". ADMINISTERED MORPHINE 2 MG IV FOR PAIN PER MD ORDER. RAILS UP FOR PT SAFETY.
[2020-06-24] MEDS: PARoxetine 20 MG TAB PO SCH (10:00)
[2020-06-24] MEDS: OXYBUTYNIN CHL 5 MG TAB PO SCH (10:00)
[2020-06-24] MEDS: AMIODARONE HCL 200 MG TAB PO SCH (10:00)
[2020-06-24] MEDS ORDERED: POTASSIUM PHOSPHATE 44 MEQ in D5W 5% 250 ML IV ONE (10:00)
[2020-06-24] MEDS: ASPirin 81 mg TAB PO SCH (10:00)
--- NOTE | 2020-06-24 10:30 | NUR ---
REPOSITIONED PT. STILL HOLDING PO MEDS ER . REMIANS ON LEVOPHED AT 4MCG. BP 107/54.
[2020-06-24] MEDS: PANTOPRAZOLE 40 MG/10 ML VIAL INJ IV SCH (10:42)
[2020-06-24] MEDS: LEVOTHYROXINE SODIUM 100 MCG/5 ML INJ IV SCH (10:42)
--- NOTE | 2020-06-24 12:15 | NUR ---
ACCUCHECK OF 165 AND PT COVERED WITH 4 UNITS OF REGULAR INSULIN SQ.
--- NOTE | 2020-06-24 12:48 | NUR ---
PAIN PT WITH C/O PAIN TO HER ABD AND HER SACRAL WOUND. MEDICATED WITH MORPHINE PER MD ORDER. RAILS UP X4 AND BED IN LOW POSITION FOR PT SAFETY.
--- NOTE | 2020-06-24 14:30 | NUR ---
PT REFUSED TO BE TURNED, "NOT RIGHT NOW". MADE HER AWARE THAT SHE COULD HAVE THE PRESSURE ULCER ON HER SACRUM GET WORSE, BUT SHE DOES NOT WANT TO BE TURNED.
[2020-06-24] MEDS: SODIUM CHLORIDE 0.9% 1,000 ML IV SCH (14:39)
--- NOTE | 2020-06-24 15:00 | NUR ---
CALLED THE [facility] AT THE REQUEST OF DR Jaycob HOWARD. PT IS STILL ON THE WAITING LIST, BUT THERE ARE CURRENTLY NO ICU BEDS AVAILABLE.
--- NOTE | 2020-06-24 15:56 | NUR ---
ANTONIO SPOKE WITH ROLAND, PHARMACIST, REGARDING VANCOMYCIN TROUGH LEVEL OF 25.4 . HOLD DOSE AND THEY WILL PLACE AN ORDER TO RECHECK THE VANCO LEVEL LATER.
--- NOTE | 2020-06-24 16:34 | NUR ---
Called [facility] spoke with Mirella GARCIA and ask if the they had a bed for the patient yet and stated they do not have a bed but will call when they do.
--- NOTE | 2020-06-24 17:15 | NUR ---
CHANGED SACRAL DRESSING OVER PRESSURE AREA. WOUND CLEANED WITH WOUND LODGE ATTENDANT AND THEN THERAPEUTIC HONEY APPLIED AND OPTIFOAM DRESSING APPLIED. WOUND TO BOTH SIDES OF THE SACRUM WITH BOTH SIDES WITH BROWN ESCHAR SURROUNDED BY SMALL AREAS OF PINK TISSUE AND YELLOW SLOUGH. TOLERATED WELL BY PT WITH PAIN MEDICINE GIVEN PRIOR TO DRESSING CHANGE. WHILE PT BEING TURNED FOR DRESSING CHANGE , BAG OVER HOLE ON LEFT ABD, (PRIOR GJ TUBE SITE) CAME OFF AND SPILLED OVER THE BED. CHANGED BAG TO SITE. CHANGED DRESSING TO MIDLINE INCISION, DINORAH INTACT WTIH SMALL OPEN AREA ABOUT 1/3 UP FROM THE BOTTOMS, WITH PINK AND YELLOW TISSUE NOTED. COMPLETE LINEN CHANGE DONE.
[2020-06-24] MEDS ORDERED: TPN PER PHARMACY IV NR ×9 (20:00)
--- NOTE | 2020-06-24 20:00 | NUR ---
ADMITTED ON 06/17/20 FOR SHORTNESS OF BREATH. ARRIVED WITH A LARGE , OPEN, FULL THICKNESS PRESSURE WOUND ON HER SACRUM. SKIN IS JAUNDICE. WITH SKIN CARE, THERAHONEY AND DAILY DRESSING CHANGES, IT IS LOOKING BETTER. WHEN SHE ARRIVED IS WAS RAW. NOW IT HAS 90% BROWN SEAL OVER IT, EDGES ARE RED, BUT OVERALL IT HAS HEALED SOME. NO MORE SMELL TO IT. HEELS ARE RED AND BLANCHABLE. MOUTH BREATHING. ORAL CARE DONE.LUNGS CLEAR, DIM IN BASES. ON 2L EDUCATION PARAPROFESSIONAL. ABDOMEN IS ROUND AND SOFT. MIDLINE STAPLED INCISION. WOUND EDGES ARE RED. LOWER 1/3 OF INCISION IS DRAINING YELLOW DRNG. TO A FOAM DRESSING. TO THE LEFT OF THAT IS A BILIARY TUBE TO DOWN DRAIN BILE BAG. THERE IS BILE LIQUID IN THE BAG. UNDER THAT IS A G/J TUBE. THE G PORTION IS NO LONGER TO LIS SUCTION .THE J PORTION IS CLAMPED. THERE IS AN OPEN HOLE TO THE LEFT AND LOWER LATERAL PORTION OF THE G/J TUBE, APPROXIMATELY ONE INCH FROM IT. IT IS LEAKING BROWN LIQUID. JONES IN PLACE DRAINING A THICK LINCOLN LIQUID. ALL PULSES ARE PALPABLE. MID ANKLE DOWN THE FEET ARE COLD. . SBP STABLE WITH LEVOPHED SUPPORT. UNABLE TO WEAN AT THIS TIME. MAIN IV FLUID AT 60CC/HR. BNP IS NORMAL. WBC IS 7.1. PATIENT HAS A DOUBLE LUMEN PICC THAT WAS PLACED AT AN OUTSIDE HOSPITAL. HAS A 22g IN THE LH THAT IS CURRENTLY IN USE. LEVOPHED IS THROUGH ONE PORT OF THE PICC LINE, TPN IS THROUGH THE 2 LUMEN OF THE PICC LINE. NORMAL SALINE NOW IS THROUGH THE PERIPHERAL LINE. PREFERS SLEEPING FLAT. SACRAL WOUND CAUSES HER A LOT OF PAIN.NOW BOTH HER HANDS ARE NOW BEGINNING TO HAVE THE NEUROPATHY PAIN. PAIN MEDS BEING GIVEN. +2 PITTING EDEMA OF BOTH LEGS. SCDS ON. YELLOW DRNG FROM THE VAGINA. GEOFF CALLED FOR UPDATES. PLAN IS TO GO BACK TO [facility]. [facility] MEDICAL RECORDS HERE. JAUNDICE, ICTERIC.DAILY SACRAL DRESSING DONE AT 1700 TODAY.
--- NOTE | 2020-06-24 21:00 | NUR ---
REQUESTED PAIN MEDICATION FOR HER HANDS AND SACRAL WOUND PAIN. MORPHINE GIVEN. ORDER TO NOT USE THE GJ TUBE FOR MEDS.
[2020-06-24] MEDS: CARBIDOPA W LEVODOPA 25/100mg TABLET PO SCH (22:00)
[2020-06-24] MEDS: ATORVASTATIN 20 MG TAB PO SCH (22:00)
[2020-06-24] MEDS: AMITRIPTYLINE HCL 10 MG TAB PO SCH (22:00)
--- NOTE | 2020-06-24 22:00 | NUR ---
PAIN MED WORKING. REPOSITIONED TO RIGHT SIDE. VSS. UNABLE TO WEAN THE LEVOPHED AT THIS TIME. ALERT . ORIENTED. PUPILS UNEQUAL STILL. SPEECH CLEAR. NSR WITHOUT ECTOPY
[2020-06-24] MEDS ORDERED: PHENYLEPHRINE IV 250 ML IV SCH (23:15)
[2020-06-25] VITALS (65 sets, daily range): BP systolic 84–134; BP diastolic 38–79
--- NOTE | 2020-06-25 | NUR ---
VSS. ACCUCHECK REPLACED. NSR WITHOUT ECTOPY. REPOSITIONED. ICE CHIPS GIVEN . ABDOMINAL WOUNDS CLEAN AND DRY. ABDOMINAL HOLE TO THE OSTOMY BAG IS DRAINING.
--- NOTE | 2020-06-25 01:00 | NUR ---
REQUESTING PAIN MEDICATION
[2020-06-25] MEDS: MORPHINE SULF INJ 2 MG/ML SYRINGE 1ML IV PRN ×4 (01:11→21:43)
--- NOTE | 2020-06-25 02:00 | NUR ---
RESTING WELL. VSS. UNABLE TO WEAN THE LEVOPHED. NSR WITHOUT ECTOPY. IV SITES SHOW NO REDNESS, SWELLING OR DRNG. GOOD URINE OUTPUT.URINE IS A THICK LINCOLN LIQUID. ABDOMINAL DRNG IS BROWN.
--- NOTE | 2020-06-25 04:00 | NUR ---
NO CHANGE IN STATUS
[2020-06-25] MEDS: ENOXAPARIN SOD 100 MG/1 ML SYRINGE SC SCH ×2 (05:00→17:00)
[2020-06-25] MEDS: InsuLIN REG 1unit/0.01ml Soln (100units/ml) SC SCH ×4 (06:00→18:00)
--- NOTE | 2020-06-25 06:00 | NUR ---
VSS. UNABLE TO WEAN OFF LEVOPHED. SLEPT WELL THROUGH THE NIGHT. ABDOMINAL BAG DRAINED A SMALL AMOUNT OF FLORES LIQUID. BILE BAG DRAINED BILE LIQUID.
[2020-06-25] MEDS: ACCU-CHEK COMFORT CURVE STRIP VI SCH ×4 (06:23→18:23)
[2020-06-25] MEDS: MEROPENEM 1GM IVPB 100 ML IV SCH ×2 (06:23→15:10)
--- NOTE | 2020-06-25 07:00 | NUR ---
Report from RADHA Hidalgo Patient asleep in bed, HR 71 SPO2 96% RR 16 BP 105/57. IV Levophed at 4mcg, TPN 54 ml , 0.9% NS at 60 ml/hr. Patient in NSR, with borderline 1t degree block. Cronin catheter to gravity, dark alexandrea urine. Patient refused SCD's. Patient lying flat, supine d/t sacral wound. Patient on 2L NC. Patient is post G/J tube revision, with 3 abdominal wounds: midline incision with lower portion dehiscion, open wound from previous G/J tube removal (ostomy bag over it) and Bile tube with 125ml output on p.m. shift. Patient is NPO, no bowel movement since admission. Patient awaiting transfer to [facility] upon her request.Pain from sacral wound treated with Morphine 2mg.
[2020-06-25 07:18] LABS: Potassium 3.6 mmol/L (3.5-5.1)
[2020-06-25 07:23] LABS: Albumin 1.2 g/dL (3.4-5.0); BUN/Creatinine Ratio 15.4; Calcium 7.4 mg/dL (8.5-10.1); Magnesium 1.7 mg/dL (1.6-2.6)
[2020-06-25 07:25] LABS: Bilirubin, Total 4.5 mg/dL (0.2-1.0); Phosphorus 2.3 mg/dL (2.5-4.90); Total Protein 6.4 g/dL (6.4-8.2)
--- NOTE | 2020-06-25 07:30 | NUR ---
INITIAL CONTACT Patient easily arousable. Discussed plan for transfer to [facility] at her request when bed is available. Patient states 0/10 pain level at this time. Discussed reasons for non-use of new G/J tube. Abdominal observation: bile tube patent, surround skin intact, bile secretion green; G/J tube with 2x ports clamped, and based upon report non useable at this timel; ostomy bag over open wound previous G/J tube insertion site with clear secretions. Patient is supine, does not want to be turned d/t sacral wound. Patient refusing turn or sacral wound check until later this a.m.
[2020-06-25] MEDS ORDERED: POTASSIUM PHOSPHATE 44 MEQ in D5W 5% 250 ML IV ONE (09:00)
--- NOTE | 2020-06-25 09:18 | NUR ---
Called [facility] for [facility] [phone], spoke with [place] stevenson and stated she is still on the list and they will call when there is a bed.
[2020-06-25] MEDS: LEVOTHYROXINE SODIUM 100 MCG/5 ML INJ IV SCH (09:29)
[2020-06-25] MEDS: PANTOPRAZOLE 40 MG/10 ML VIAL INJ IV SCH (09:29)
--- NOTE | 2020-06-25 09:30 | NUR ---
Dr. Pozo bedside, Updated on status. Discussed advancing diet and bedside swallow. No further orders.
[2020-06-25] MEDS: OXYBUTYNIN CHL 5 MG TAB PO SCH (10:00)
[2020-06-25] MEDS: ASPirin 81 mg TAB PO SCH (10:00)
[2020-06-25] MEDS: PARoxetine 20 MG TAB PO SCH (10:00)
[2020-06-25] MEDS: AMIODARONE HCL 200 MG TAB PO SCH (10:00)
--- NOTE | 2020-06-25 10:05 | NUR ---
ROUNDS Turned patient, oral care completed. SCD/s off per patient request d/t painful squeezing, Patient teaching regarding need for SDC's.
--- NOTE | 2020-06-25 10:10 | NUR ---
BEDSIDE SWALLOW Patient tolerating liquids, ice chips and jello without cough. Airway clear, functional swallow intact, no pain with swallow. Will advance diet to mechanical soft d/t weak cough. Addendum: 06/25/20 at 1051 by Maynor Hanna RN Wrong Patient
--- NOTE | 2020-06-25 11:02 | NUR ---
ROUNDS Patient states she is discouraged about getting transferred and she states she feels full. RN will assess symptoms and follow up with status of transfer.
--- NOTE | 2020-06-25 11:20 | NUR ---
Nutrition Followup Notes Pt wt is 106.2 kg Pt was sleeping when rounded this morning. Pt it still NPO with TPN ordered at 54 ml/hr providing 1230 kcal, 70g protein and 950 NPCs. PN support provides 64-74% of est energy needs and 77-84% of protein needs. Continue to advance TPN to meet >75% of needs. Noted pt G/J Tube clamped for repair per RN note. Est energy needs ABW 83 [id number] kcal (20-23 kcal/kg ABW), Est protein needs: 83-91g (1.0-1.1g/kg ABW r/t elev RFT hypoalb.) Will reassess prn LABS: Ca 7.4L, Alb 1.2L, GLUC 131H GI: Pt with no BM today per RN note BS: 15 mod risk. Refer to wound assessment report for full details. PES: 1) Altered nutrition related lab values r.t current chronic medical condition aeb elev RFT severe hypoalb hyperglycemia 2) Impaired swallowing r.t chronic medical condition aeb pt`s with cancer has GJ tube Comments 1) advance diet as medically feasible 2) Advance PN support to meet > 75% of needs if GI is not accessible 3) consider EN support with Vital AF @ 65 ml/hr per MD approval 4) consider Prostat 1 packet bid as RFT improve and GI is accessible 5) continue current plan of care f/u high 2-3 days
--- NOTE | 2020-06-25 11:23 | NUR ---
RN and community services officer went to reposition patient in order to drain ostomy bag. Patient is extremely painful and after being pulled up in bed stated the movement hurt her and she stated she wanted to leave this hospital and stated she did not want to be turned or due to her pain level. RN offerred her Morphine, but she stated she did not want it. RN paged primary physician to discuss status of patient.
--- NOTE | 2020-06-25 11:38 | NUR ---
RN bedside to administer Morphine to patient for 8/10 pain abdomen, sacrum and generalized. Patient apologized for angry outburst during repositioning and states she wants to go to [place] where they know how to turn her and know everything about her. She states she does not want to be here at [facility] and it is nothing against me as her nurse, she is just discouraged and feeling frustrated and helpless in her situation.
--- NOTE | 2020-06-25 11:45 | NUR ---
Called Transfer Center and left message regarding patients status for transfer.
--- NOTE | 2020-06-25 11:59 | NUR ---
RN Spoke with Patients significant other Updated her on her status and pain at this time. Discussed measures that could assist patient with her emotional state and discourgement. Partner will bring patient some things from home to help with the passing of her day.
--- NOTE | 2020-06-25 12:15 | NUR ---
WOUND CARE NOTE: IN TO SEE PATIENT AT THIS TIME FOR WOUND RE-EVALUATION. PATIENT CONTINUES TO BE ICU STATUS. SHE IS AWAKE, ALERT, PREMEDICATED FOR PAIN BY BEDSIDE NURSE. PATIENT HAS CURRENT SELENA SCORE OF 12. PATIENT RESTING ON ICU LOW AIRLOSS BED. SHE CONTINUES TO BE VERY WEAK. SHE IS MAX ASSIST FOR HER ADL'S, INCLUDING TURNING/REPOSITIONING. PATIENT'S SACRAL WOUND CONTINUES TO EVOLVE. WOUND MEASURES 11 X 9 CM. DTI HAS EVOLVED TO UNSTAGEABLE PRESSURE INJURY. VERY LITTLE PURPLE NOTED, WOUND BED IS 20 PERCENT PALE RED GRANULATION, 30 PERCENT YELLOW SLOUGH, AND 50 PERCENT SOFT BLACK ESCHAR. WOUND IS DRAINING LIGHT AMOUNTS OF SEROUS DRAINAGE. NO ODOR NOTED. WOUND PHOTOGRAPHED FOR REFERENCE. APPLIED THERAHONEY GAUZE, OPTIFOAM GENTLE SACRAL DRESSING TO WOUND. PATIENT REPOSITIONED ONTO LEFT SIDE, REDISTRIBUTING PRESSURE POINTS WITH WEDGES/PILLOWS. PATIENT TOLERATED DRESSING CHANGE WELL, NOTING NO PAIN BY PATIENT, EXCEPT WHEN REPOSITIONING. SKIN/WOUND CARE PLAN UPDATED. RECOMMEND: [id number] POSITIONING, CONSIDERATION FOR WOUND DEBRIDEMENT WHEN MORE CLINICALLY STABLE, CONTINUATION WITH ALL WOUND CARE ORDERS PREVIOUSLY PRESCRIBED BY MD. WOUND CARE TEAM WILL CONTINUE TO MONITOR. Addendum: 06/25/20 at 1434 by Rachele Raya RN Amended: Links added.
--- NOTE | 2020-06-25 12:30 | NUR ---
Wound Nurse bedside RN and wound RN change dressing, applied therahoney dressing and assessed eschar on sacral wound. Wound RN stated to patient that she must be turned to help the wound heal and to prevent further injury. RN reinforced direction with patient and with new pain control measures, the patient will agree to be turned Q2hrs.
--- NOTE | 2020-06-25 13:00 | NUR ---
Patient encouraged to turn, move legs, arms. Patient painful.
--- NOTE | 2020-06-25 13:00 | NUR ---
Dr. Londono bedside. New orders for Morphine 4mg for pain control. New orders to upgrade transfer request to urgent.
--- NOTE | 2020-06-25 13:30 | NUR ---
Patient sleeping in bed, easily arousable. Patient pain 3/10.
--- NOTE | 2020-06-25 13:34 | NUR ---
Left message with Transportation Maintenance Specialist regarding new order to upgrade need for transfer to [facility].
--- NOTE | 2020-06-25 13:36 | NUR ---
Per Dr. Kulwinder Hoskins, paged Dr. Bragg regarding patients increased fullness of abdomen.
--- NOTE | 2020-06-25 14:41 | NUR ---
Faxed updated transfer order to [facility] for [facility] [phone] request changed to urgent transfer.
--- NOTE | 2020-06-25 15:06 | NUR ---
Patients significant other is bedside for visit, approved by ICU director.
--- NOTE | 2020-06-25 15:30 | NUR ---
Patient encouraged to sit up and cough through pain to promote deep breathing and prevent pneumonia.
--- NOTE | 2020-06-25 16:11 | NUR ---
Called [facility] [phone] for [facility] spoke with Richard GARCIA stated he received the updated clinicals and there is still no bed for the patient.
--- NOTE | 2020-06-25 17:00 | NUR ---
Patients PICC line is leaking and sluggish. PICC nurse paged and new order for midline. RN also paged Dr. Berrios to see if chemo port can be accessed.
--- NOTE | 2020-06-25 17:00 | NUR ---
RN completed one hour of wound care, abdominal. All dressing romoved, cleansed and redressed. Patient midline incision has lower portion dehiscence, uppper portion intact with shannan, minimal dressing. G/J tube skin cleansed, stitch in place, redness surround site, no advancing redness or warmth. Bile bag insertion site intact, RN did not remove. Ostomy bag covering old G/J tube insertion site per Dr. Bragg for drainage.
--- NOTE | 2020-06-25 17:13 | NUR ---
Dr. Bragg returned page to RN Per Dr. Hoskins RN called to let Dr. Bragg know that patient has had a change in condition where she is feeling "full". Dr. Bragg states he is no longer on the case but that a AbX CT should be ordered and that the RN should let Dr. Mendez.
--- NOTE | 2020-06-25 17:17 | NUR ---
Paged Dr. Hoskins to discuss Dr. Bragg response and to ask for Dr. Michel consult .
--- NOTE | 2020-06-25 18:39 | NUR ---
RN discussed with patient plan of care regarding midline insertion, redoing PICC line or last accessing chemoport. Encouraged patient to turn self and she does not want to be turned regularly.
--- NOTE | 2020-06-25 18:50 | NUR ---
END OF SHIFT Patient given Morphine 2 mg for pain 04/27 around 1830. Patient supine, does not want wedge on back or under sacrum. Patient teaching regarding skin integrity. Cronin catheter to gravity, coffee color urine 1000 ml. No bowel movement. NC 2L SPO2 95% RR 12 . AO x4, moves all extremities, follows commands. Last BSC 145, 2 units coverage. TPN is off, PICC Line infiltrated awaiting nurse to insert midline or redo PICC line. Calls into Dr. Berrios for orders to access chemoport if necessary. Transfer order upgraded to urgent [facility] Dr. Michel new consult for surgery care if needed. Patient partner visited today. Wounds redressed, cleansed and new dressing. Bile drainage 300 ml, Ostomy/bag clear gonzalez 220ml. Midline incision dehisced at lower portion.
--- NOTE | 2020-06-25 19:07 | NUR ---
Tammie from [facility] Bed assignment #[id number] ICU, Dr. Gudino admitting. Call [phone] for report upon transfer EMR called estimated arrival time 2099.
--- NOTE | 2020-06-25 19:36 | NUR ---
Report given to Gwen GARCIA.
--- NOTE | 2020-06-25 19:51 | NUR ---
DISCHARGE ORDER FROM DR Jaycob HOWARD PRINTED AND PLACED IN TRANSFER PACKET. JUST RECEIVED A TRANSFER NOTICE TO [facility] RO[id number]. [facility] TO FRAME RUNNER AT 2100. PATIENT IS AWARE. PACKET FOR TRANSFER IS READY.
--- NOTE | 2020-06-25 19:54 | NUR ---
REPORT CALLED TO SANTHOSH AT [facility].
[2020-06-25] MEDS ORDERED: TPN PER PHARMACY IV SCH ×8 (20:00)
--- NOTE | 2020-06-25 20:13 | NUR ---
NOTIFIED HER SIGNIFICANT OTHER, GEOFF, OF THE TRANSFER TO [facility] AT 2100 WITH [facility].
--- NOTE | 2020-06-25 20:15 | NUR ---
VICENTE, HER SON , NOTIFIED OF TRANSFER AND BED NUMBER AT [facility]
--- NOTE | 2020-06-25 20:35 | NUR ---
BELONGINGS LIST VERIFIED
--- NOTE | 2020-06-25 20:53 | NUR ---
TRANSFER NASAL SWAB FOR MRSA SENT
--- NOTE | 2020-06-25 21:29 | NUR ---
REPORT GIVEN TO [facility] PERSONNEL. MADE A LEVOPHED DRIP FOR THEM AT THEIR DESIRED CONCENTRATION OF 4MG IN 250CC OF D5W
--- NOTE | 2020-06-25 21:32 | NUR ---
GEOFF REQUESTED TO FOLLOW [facility] TO THE HOSPITAL. SHE IS WAITING IN THE PARKING LOT FOR THEM. [facility] PERSONNEL STATED THAT IT WAS OK FOR HER TO FOLLOW THEM. I NOTIFIED HER THAT SHE IS BEING PUT ON THE GURNEY RIGHT NOW.
[2020-06-25] MEDS: NOREPINEPHRINE 8 MG/250ML KIT 250 ML IV SCH (21:42)
--- NOTE | 2020-06-25 21:58 | NUR ---
RUIZ WANTED TO START ANOTHER IV. PROVIDED THEM WITH SUPPLIES.
[2020-06-25] MEDS ORDERED: CARBIDOPA W LEVODOPA 25/100mg TABLET PO SCH (22:00)
[2020-06-25] MEDS ORDERED: PANTOPRAZOLE 40 MG TAB PO SCH (22:00)
[2020-06-25] MEDS ORDERED: CARVEDILOL 3.125 MG TAB PO SCH (22:00)
[2020-06-25] MEDS ORDERED: ATORVASTATIN 20 MG TAB PO SCH (22:00)
[2020-06-25] MEDS ORDERED: SACUBITRIL-VALSARTAN 24mg/26mg TAB PO SCH (22:00)
[2020-06-25] MEDS ORDERED: AMIODARONE HCL 200 MG TAB PO SCH (22:00)
[2020-06-25] MEDS ORDERED: GABAPENTIN 300 MG CAP PO SCH (22:00)
--- NOTE | 2020-06-25 22:04 | NUR ---
PATIENT LEFT THE UNIT
[2020-06-26] MEDS ORDERED: LEVOTHYROXINE SODIUM 112 MCG TAB PO SCH (07:00)
[2020-06-26] MEDS ORDERED: ASPirin 81 mg TAB PO SCH (10:00)
[2020-06-26] MEDS ORDERED: PARoxetine 20 MG TAB PO SCH (10:00)
[2020-06-26] MEDS ORDERED: RIVAROXABAN 20 MG TAB PO SCH (18:00)
== END 2020-06-25 22:09 | disposition short-term general hospital (02) | DRG 871 ==
LOC: ER 15:52 → TELE 15:53 → ICU WEST 06-18 06:36
PROVIDERS: ADMIT Hospitalist; ATTEND Internal Medicine
DX: A41.9 Sepsis, unspecified organism (principal); G93.41 Metabolic encephalopathy; J18.9 Pneumonia, unspecified organism; R65.21 Severe sepsis with septic shock; E87.1 Hypo-osmolality and hyponatremia; N17.9 Acute kidney failure, unspecified; N39.0 Urinary tract infection, site not specified; C25.9 Malignant neoplasm of pancreas, unspecified; E11.21 Type 2 diabetes mellitus with diabetic nephropathy; K72.90 Hepatic failure, unspecified without coma; G25.81 Restless legs syndrome; D64.9 Anemia, unspecified; I48.91 Unspecified atrial fibrillation; Z20.828 Contact with and (suspected) exposure to other viral communicable diseases; E66.9 Obesity, unspecified; E88.09 Other disorders of plasma-protein metabolism, not elsewhere classified; E11.42 Type 2 diabetes mellitus with diabetic polyneuropathy; I11.0 Hypertensive heart disease with heart failure; I50.9 Heart failure, unspecified; F41.9 Anxiety disorder, unspecified; K21.9 Gastro-esophageal reflux disease without esophagitis; F17.210 Nicotine dependence, cigarettes, uncomplicated; F32.9 Major depressive disorder, single episode, unspecified; E87.6 Hypokalemia; L89.150 Pressure ulcer of sacral region, unstageable; E03.9 Hypothyroidism, unspecified; Z68.36 Body mass index [BMI] 36.0-36.9, adult; Z82.49 Family history of ischemic heart disease and other diseases of the circulatory system; E11.65 Type 2 diabetes mellitus with hyperglycemia; Z74.01 Bed confinement status
CPT/HCPCS: 36415; 70450; 71045; 71260; 74177; 80048; 80053; 80202; 80320; 81001; 82040; 82140; 82728; 82962; 83540; 83550; 83605; 83735; 83880; 84100; 84132; 84478; 84484; 85025; 85610; 85730; 87040; 87077; 87081; 87186; 87205; 87426; 93005; 94640; 95819; 99291; C9113; G0378; J1815; J1956; J2001; J2185; J3490; J7060

== ENCOUNTER 2020-07-31 12:59 | Inpatient (IN) | payer OTHER, MEDICAID ==
[~2020-07-31] VITALS: Ht 177.8 cm; Wt 101.2 kg
[2020-07-31] MEDS ORDERED: PIPERACILLIN-TAZOB 3.375GM 100 ML IV ONE (13:30)
[2020-07-31] MEDS ORDERED: SODIUM CHLORIDE 0.9% 1,000 ML IV ONE (13:30)
[2020-07-31 15:02] LABS: Urine Bacteria FEW /hpf (None Seen); Urine Blood Negative /uL (Negative); Urine Budding Yeast MODERATE /hpf (None Seen); Urine Hyaline Cast FEW /lpf (0 - 2); Urine Mucus FEW (None Seen); Urine Specific Gravity 1.019 (1.001-1.035); Urine WBC 104 /hpf (0 - 5); Urine WBC Clumps PRESENT /hpf (None Seen)
[2020-07-31] MEDS: NOREPINEPHRINE 8 MG/250ML KIT 250 ML IV SCH (15:03)
[2020-07-31 15:28] LABS: Basophils # (auto) 0.2 10 ^3/uL (0-0.2); Basophils % (auto) 1.2 % (0.0-2.0); Eosinophils # (auto) 0.1 10 ^3/uL (0-0.8); Eosinophils % (auto) 0.4 % (0.0-7.0); Hematocrit 35.3 % (36.0-46.0); Hemoglobin 11.3 g/dL (12.2-16.2); Lymphocytes # (auto) 0.5 10 ^3/uL (0.4-5.4); Lymphocytes % (auto) 3.3 % (10.0-50.0); Mean Corpuscular Hemoglobin 27.8 pg (28.0-32.0); Monocytes # (auto) 1.3 10 ^3/uL (0-1.3); Monocytes % (auto) 8.8 % (0.0-12.0); Neutrophils # (auto) 12.5 10 ^3/uL (1.6-8.6); Neutrophils % (auto) 86.3 % (37.0-80.0); Platelet Count (auto) 143 10^3/uL (140-450); Red Blood Cells 4.06 10^6/uL (4.0-5.20); Red Cell Distribution Width 16.9 % (11.8-14.3); White Blood Cell 14.5 10^3/uL (4.4-10.8)
[2020-07-31 15:47] LABS: Alanine Aminotransferase 66 U/L (13-56); Albumin 2.5 g/dL (3.4-5.0); Anion Gap 6 (5-15); Aspartate Aminotransferase 136 U/L (15-37); BUN/Creatinine Ratio 48.1; Blood Urea Nitrogen 52 mg/dL (7-18); Calcium 9.8 mg/dL (8.5-10.1); Chloride 80 mmol/L (98-107); GFR African American 67 mL/min; GFR Non-African American 56 mL/min; Glucose 199 mg/dL (74-106); Sodium 130 mmol/L (136-145)
[2020-07-31 15:49] LABS: Lactic Acid w/Reflex 4.1 mmol/L (0.4-2.0)
[2020-07-31 15:52] LABS: Alkaline Phosphatase 750 U/L (45-117); Bilirubin, Total 6.4 mg/dL (0.2-1.0); Total Protein 9.9 g/dL (6.4-8.2)
[2020-07-31 16:00] LABS: Carbon Dioxide 44 mmol/L (21-32); Potassium 2.9 mmol/L (3.5-5.1)
[2020-07-31 16:02] LABS: INR 1.15 (0.9-1.15); Partial Thromboplastin Time 28.1 sec (23.0-31.2)
[2020-07-31] MEDS: POTASSIUM CHL 20MEQ/100ML 100 ML IV SCH ×2 (17:08→19:40)
[2020-07-31] MEDS ORDERED: AMMONIA 0.33 ML INHALANT IN ONE (17:31)
[2020-07-31] MEDS ORDERED: ONDANSETRON HCL 4 MG/2 ML VIAL ONE (17:41)
[2020-07-31] MEDS ORDERED: MORPHINE SULFATE 4 MG/ML SYR/VIAL ONE (17:41)
[2020-07-31] MEDS ORDERED: AZITHROMYCIN 500MG/ 250ML 250 ML IV ONE (18:45)
[2020-07-31] MEDS ORDERED: MORPHINE SULF INJ 2 MG/ML SYRINGE 1ML IV PRN ×3 (19:00→22:00)
[2020-07-31] MEDS ORDERED: NITROGLYCERIN 0.4 MG SL TAB SL PRN ×2 (19:00→22:00)
[2020-07-31] MEDS ORDERED: VANCOMYCIN PER PHARMACY 1,000 MG IV SCH (21:45)
[2020-07-31] MEDS ORDERED: MORPHINE SULFATE 4 MG/ML SYR/VIAL IV PRN (21:45)
[2020-07-31] MEDS ORDERED: DEXTROSE (50%) 50ML SYRG IV PRN (21:45)
[2020-07-31] MEDS: CARVEDILOL 3.125 MG TAB PO SCH (22:00)
[2020-07-31] MEDS ORDERED: POTASSIUM CHLORIDE 60 MEQ, LIDOCAINE 1% (LOCAL ANESTH.) 6 ML in SODIUM CHL 0.9% 500 ML IV ONE (22:00)
[2020-07-31] MEDS ORDERED: CARBIDOPA W LEVODOPA 25/100mg TABLET PO SCH (22:00)
[2020-07-31] MEDS ORDERED: HYDROcodone-ACET 5/325MG TAB PO PRN (22:00)
[2020-07-31] MEDS: FAMOTIDINE (10MG/ML) 2ML VL IV SCH (22:00)
[2020-07-31] MEDS ORDERED: ALUM & MAG HYDROX-SIMETH LIQ(MAALOX) 30 ML PO PRN (22:00)
[2020-07-31] MEDS: ATORVASTATIN 20 MG TAB PO SCH (22:00)
[2020-07-31] MEDS ORDERED: POTASSIUM EFFERVESENT TAB 25 MEQ GT ONE (22:00)
[2020-07-31] MEDS: SACUBITRIL-VALSARTAN 24mg/26mg TAB PO SCH (22:00)
[2020-07-31] MEDS: OXYBUTYNIN CHL 5 MG TAB PO SCH (22:00)
[2020-07-31] MEDS ORDERED: DOCUSATE SOD 100 MG CAP PO PRN (22:00)
[2020-07-31] MEDS ORDERED: VANCOMYCIN 1GM/250ML 250 ML IV ONE (23:00)
[2020-07-31] MEDS: CARBIDOPA W LEVODOPA CR 25/100mg TABLET PO SCH (23:00)
[2020-08-01] VITALS (79 sets, daily range): BP systolic 82–157; BP diastolic 42–68
[2020-08-01 00:41] LABS: Amphetamine Screen, Urine NEGATIVE (NEGATIVE); Barbiturate Scree,Urine NEGATIVE (NEGATIVE); Benzodiazephine Screen, Urine NEGATIVE (NEGATIVE); Cannabinoid Screen, Urine NEGATIVE (NEGATIVE); Cocaine Screen, Urine NEGATIVE (NEGATIVE); Opiate Scree,Urine NEGATIVE (NEGATIVE); Phencyclidine Screen, Urine NEGATIVE (NEGATIVE)
[2020-08-01 01:02] LABS: Lactic Acid w/Reflex 4.5 mmol/L (0.4-2.0)
[2020-08-01 01:09] LABS: Cholesterol 134 mg/dL (< 200); HDL Cholesterol 11 mg/dL (40-59); LDL Cholesterol 109 mg/dL (< 100); Triglycerides 236 mg/dL (< 150)
[2020-08-01] MEDS: LEVOTHYROXINE SODIUM 112 MCG TAB PO SCH (07:00)
[2020-08-01] MEDS: InsuLIN REG 1unit/0.01ml Soln (100units/ml) SC SCH ×4 (08:08→18:19)
[2020-08-01] MEDS: ACCU-CHEK COMFORT CURVE STRIP VI SCH ×6 (08:08→18:15)
[2020-08-01] MEDS: PIPERACILLIN-TAZOB 3.375GM 100 ML IV SCH ×4 (08:56→18:20)
[2020-08-01] MEDS: HYDROCORTISONE SOD SUCC 100 MG/2ML INJ VIAL IV SCH ×4 (08:56→18:20)
[2020-08-01] MEDS ORDERED: AMIODARONE 450mg/250ml AE 250 ML IV SCH (09:00)
[2020-08-01] MEDS ORDERED: AMIODARONE HCL 150 MG in D5W 5% 100 ML IV ONE (09:00)
[2020-08-01] MEDS: D5W/LACTATED RINGERS 1,000 ML IV SCH ×3 (09:04→21:52)
[2020-08-01 09:42] LABS: Basophils # (auto) 0.1 10 ^3/uL (0-0.2); Basophils % (auto) 0.4 % (0.0-2.0); Eosinophils # (auto) 0.1 10 ^3/uL (0-0.8); Eosinophils % (auto) 0.9 % (0.0-7.0); Hematocrit 31.2 % (36.0-46.0); Hemoglobin 9.9 g/dL (12.2-16.2); Lymphocytes # (auto) 0.7 10 ^3/uL (0.4-5.4); Lymphocytes % (auto) 5.2 % (10.0-50.0); Mean Corpuscular Hemoglobin 27.6 pg (28.0-32.0); Mean Corpuscular Hgb Conc. 31.9 g/dL (32.0-36.0); Mean Corpuscular Volume 86.6 fL (80.0-100.0); Monocytes # (auto) 1.4 10 ^3/uL (0-1.3); Monocytes % (auto) 10.5 % (0.0-12.0); Neutrophils # (auto) 11.2 10 ^3/uL (1.6-8.6); Nucleated Red Blood Cells % 0.1 %; Platelet Count (auto) 152 10^3/uL (140-450); Red Blood Cells 3.61 10^6/uL (4.0-5.20); Red Cell Distribution Width 17.1 % (11.8-14.3); White Blood Cell 13.5 10^3/uL (4.4-10.8)
[2020-08-01 09:57] LABS: INR 1.34 (0.9-1.15); Partial Thromboplastin Time 30.8 sec (23.0-31.2)
[2020-08-01] MEDS: CARVEDILOL 3.125 MG TAB PO SCH ×2 (10:00→21:56)
[2020-08-01] MEDS: SACUBITRIL-VALSARTAN 24mg/26mg TAB PO SCH ×2 (10:00→21:56)
[2020-08-01] MEDS: POTASSIUM EFFERVESENT TAB 25 MEQ GT SCH (10:00)
[2020-08-01] MEDS: PARoxetine 20 MG TAB PO SCH (10:00)
[2020-08-01] MEDS: AMIODARONE HCL 200 MG TAB PO SCH (10:00)
[2020-08-01] MEDS: OXYBUTYNIN CHL 5 MG TAB PO SCH ×2 (10:00→21:56)
[2020-08-01 10:01] LABS: BUN/Creatinine Ratio 40.5; Calcium 9.1 mg/dL (8.5-10.1)
[2020-08-01 10:06] LABS: Potassium 2.8 mmol/L (3.5-5.1)
[2020-08-01] MEDS ORDERED: TPN PER PHARMACY 0 ML IV SCH (10:15)
[2020-08-01] MEDS ORDERED: DEXTROSE (50%) 50ML SYRG IV PRN (10:15)
[2020-08-01] MEDS ORDERED: POTASSIUM CHL 20MEQ/100ML 400 ML IV ONE (10:17)
[2020-08-01] MEDS: POTASSIUM CHL 20MEQ/100ML 100 ML IV SCH ×6 (10:20→23:04)
[2020-08-01 11:11] LABS: Albumin 1.9 g/dL (3.4-5.0); Bilirubin, Direct 7.7 mg/dL (0-0.2)
[2020-08-01 11:14] LABS: Bilirubin, Total 9.3 mg/dL (0.2-1.0); Total Protein 7.9 g/dL (6.4-8.2)
[2020-08-01] MEDS: FAMOTIDINE (10MG/ML) 2ML VL IV SCH ×2 (11:43→22:00)
[2020-08-01] MEDS: VANCOMYCIN 1GM/250ML 250 ML IV SCH ×2 (11:43→21:55)
[2020-08-01] MEDS ORDERED: SODIUM CHLORIDE 0.9% 1,000 ML IV ONE (11:45)
[2020-08-01] MEDS ORDERED: MAGNESIUM SULFATE 1GM/100ML 100 ML IV ONE ×3 (12:14→19:15)
[2020-08-01] MEDS ORDERED: METOPROLOL TARTRATE 1MG/1ML-5ML VIAL IV ONE (12:45)
[2020-08-01] MEDS ORDERED: LIDOCAINE HCL 100 MG/5ML (2%) SYRG INJ IV ONE (13:00)
[2020-08-01] MEDS: NOREPINEPHRINE 8 MG/250ML KIT 250 ML IV SCH ×2 (13:00→23:39)
[2020-08-01] MEDS: AMIODARONE 450mg/250ml AE 250 ML IV SCH (15:00)
[2020-08-01] MEDS: RIVAROXABAN 20 MG TAB PO SCH (18:00)
[2020-08-01] MEDS ORDERED: LIDOCAINE 4MG/ML IV SOLN 500 ML IV SCH (19:15)
[2020-08-01] MEDS ORDERED: LIDOCAINE 4MG/ML IV SOLN 500 ML IV ONE (19:18)
[2020-08-01 19:36] LABS: Calcium 8.5 mg/dL (8.5-10.1); Potassium 3.3 mmol/L (3.5-5.1)
[2020-08-01 19:38] LABS: BUN/Creatinine Ratio 35.2
[2020-08-01] MEDS: CARBIDOPA W LEVODOPA CR 25/100mg TABLET PO SCH (21:55)
[2020-08-01] MEDS: ATORVASTATIN 20 MG TAB PO SCH (21:55)
[2020-08-01] MEDS: HYDROmorphone HCL 2 MG/ML VL IV PRN (23:04)
[2020-08-02] VITALS (71 sets, daily range): BP systolic 87–144; BP diastolic 40–85
[2020-08-02] MEDS: InsuLIN REG 1unit/0.01ml Soln (100units/ml) SC SCH ×5 (00:58→23:51)
[2020-08-02] MEDS: PIPERACILLIN-TAZOB 3.375GM 100 ML IV SCH ×5 (01:00→23:52)
[2020-08-02] MEDS: HYDROCORTISONE SOD SUCC 100 MG/2ML INJ VIAL IV SCH ×5 (01:00→23:52)
[2020-08-02 01:52] LABS: Potassium 3.3 mmol/L (3.5-5.1)
[2020-08-02 01:54] LABS: Magnesium 1.6 mg/dL (1.6-2.6)
[2020-08-02] MEDS: POTASSIUM CHL 20MEQ/100ML 100 ML IV SCH ×2 (02:13→04:00)
[2020-08-02] MEDS ORDERED: MAGNESIUM SULFATE 1GM/100ML 100 ML IV ONE (02:15)
[2020-08-02] MEDS: AMIODARONE 450mg/250ml AE 250 ML IV SCH (06:00)
[2020-08-02] MEDS: ACCU-CHEK COMFORT CURVE STRIP VI SCH ×7 (06:25→23:48)
[2020-08-02] MEDS: LEVOTHYROXINE SODIUM 112 MCG TAB PO SCH ×2 (06:25→22:00)
[2020-08-02 06:37] LABS: Basophils # (auto) 0 10 ^3/uL (0-0.2); Basophils % (auto) 0.4 % (0.0-2.0); Eosinophils # (auto) 0.1 10 ^3/uL (0-0.8); Hematocrit 29.8 % (36.0-46.0); Hemoglobin 9.3 g/dL (12.2-16.2); Lymphocytes # (auto) 0.3 10 ^3/uL (0.4-5.4); Lymphocytes % (auto) 5.4 % (10.0-50.0); Mean Corpuscular Hemoglobin 27.5 pg (28.0-32.0); Mean Corpuscular Hgb Conc. 31.3 g/dL (32.0-36.0); Mean Corpuscular Volume 87.8 fL (80.0-100.0); Monocytes # (auto) 0.5 10 ^3/uL (0-1.3); Monocytes % (auto) 7.5 % (0.0-12.0); Neutrophils # (auto) 5.3 10 ^3/uL (1.6-8.6); Neutrophils % (auto) 85.7 % (37.0-80.0); Nucleated Red Blood Cells % 0.1 %; Platelet Count (auto) 109 10^3/uL (140-450); Red Cell Distribution Width 16.5 % (11.8-14.3); White Blood Cell 6.2 10^3/uL (4.4-10.8)
[2020-08-02 06:54] LABS: Albumin 1.7 g/dL (3.4-5.0); Calcium 8.7 mg/dL (8.5-10.1); Magnesium 2.8 mg/dL (1.6-2.6); Potassium 4.6 mmol/L (3.5-5.1)
[2020-08-02 06:57] LABS: BUN/Creatinine Ratio 33.8; Phosphorus 1.4 mg/dL (2.5-4.90); Total Protein 7.4 g/dL (6.4-8.2)
[2020-08-02] MEDS: HYDROmorphone HCL 2 MG/ML VL IV PRN ×3 (07:45→21:03)
[2020-08-02] MEDS ORDERED: SODIUM PHOSP 40 MEQ in D5W 5% 250 ML IV ONE (09:15)
[2020-08-02] MEDS: SACUBITRIL-VALSARTAN 24mg/26mg TAB PO SCH ×2 (10:00→21:52)
[2020-08-02] MEDS: CARVEDILOL 3.125 MG TAB PO SCH ×2 (10:00→21:51)
[2020-08-02] MEDS: PARoxetine 20 MG TAB PO SCH (10:00)
[2020-08-02] MEDS: POTASSIUM EFFERVESENT TAB 25 MEQ GT SCH (10:00)
[2020-08-02] MEDS: AMIODARONE HCL 200 MG TAB PO SCH (10:00)
[2020-08-02] MEDS: OXYBUTYNIN CHL 5 MG TAB PO SCH ×2 (10:00→21:51)
[2020-08-02] MEDS: FAMOTIDINE (10MG/ML) 2ML VL IV SCH ×2 (10:58→21:57)
[2020-08-02] MEDS: LACTATED RINGER'S 1,000 ML IV SCH ×2 (10:59→23:52)
[2020-08-02] MEDS: VANCOMYCIN 1GM/250ML 250 ML IV SCH ×2 (11:30→21:58)
[2020-08-02] MEDS: RIVAROXABAN 20 MG TAB PO SCH (18:00)
[2020-08-02] MEDS ORDERED: TPN PER PHARMACY IV NR ×8 (20:00)
[2020-08-02] MEDS: LIDOCAINE 4MG/ML IV SOLN 500 ML IV SCH (21:03)
[2020-08-02] MEDS: ATORVASTATIN 20 MG TAB PO SCH (21:52)
[2020-08-02] MEDS: CARBIDOPA W LEVODOPA CR 25/100mg TABLET PO SCH (21:52)
[2020-08-02] MEDS ORDERED: VANCOMYCIN 1GM/250ML 250 ML IV ONE (21:55)
[2020-08-03] VITALS (54 sets, daily range): BP systolic 87–131; BP diastolic 42–76
[2020-08-03] MEDS: HYDROmorphone HCL 2 MG/ML VL IV PRN ×5 (00:13→22:33)
[2020-08-03 04:38] LABS: Basophils # (auto) 0 10 ^3/uL (0-0.2); Basophils % (auto) 0.2 % (0.0-2.0); Eosinophils # (auto) 0 10 ^3/uL (0-0.8); Eosinophils % (auto) 0.2 % (0.0-7.0); Hematocrit 29.6 % (36.0-46.0); Hemoglobin 9.3 g/dL (12.2-16.2); Lymphocytes # (auto) 0.5 10 ^3/uL (0.4-5.4); Lymphocytes % (auto) 12.4 % (10.0-50.0); Mean Corpuscular Hemoglobin 27.4 pg (28.0-32.0); Mean Corpuscular Hgb Conc. 31.2 g/dL (32.0-36.0); Mean Corpuscular Volume 87.6 fL (80.0-100.0); Monocytes # (auto) 0.3 10 ^3/uL (0-1.3); Monocytes % (auto) 7.9 % (0.0-12.0); Neutrophils % (auto) 79.3 % (37.0-80.0); Nucleated Red Blood Cells % 0.1 %; Platelet Count (auto) 89 10^3/uL (140-450); Red Blood Cells 3.38 10^6/uL (4.0-5.20); Red Cell Distribution Width 16.4 % (11.8-14.3); White Blood Cell 3.7 10^3/uL (4.4-10.8)
[2020-08-03 04:59] LABS: Potassium 3.2 mmol/L (3.5-5.1)
[2020-08-03 05:07] LABS: Albumin 1.6 g/dL (3.4-5.0); BUN/Creatinine Ratio 29.7; Bilirubin, Total 3.6 mg/dL (0.2-1.0); Calcium 8.9 mg/dL (8.5-10.1); Magnesium 1.8 mg/dL (1.6-2.6); Phosphorus 2.2 mg/dL (2.5-4.90)
[2020-08-03] MEDS: ACCU-CHEK COMFORT CURVE STRIP VI SCH ×4 (06:00→23:47)
[2020-08-03] MEDS: HYDROCORTISONE SOD SUCC 100 MG/2ML INJ VIAL IV SCH ×4 (06:01→23:48)
[2020-08-03] MEDS: PIPERACILLIN-TAZOB 3.375GM 100 ML IV SCH ×4 (06:02→23:48)
[2020-08-03] MEDS: InsuLIN REG 1unit/0.01ml Soln (100units/ml) SC SCH ×4 (06:03→23:47)
[2020-08-03] MEDS: LACTATED RINGER'S 1,000 ML IV SCH ×2 (06:05→19:26)
[2020-08-03] MEDS: MAGNESIUM SULFATE 1GM/100ML 100 ML IV SCH ×6 (09:00→12:00)
[2020-08-03] MEDS: POTASSIUM CHL 20MEQ/100ML 100 ML IV SCH ×2 (09:28→11:10)
[2020-08-03] MEDS: FAMOTIDINE (10MG/ML) 2ML VL IV SCH ×2 (09:44→21:18)
[2020-08-03] MEDS: OXYBUTYNIN CHL 5 MG TAB PO SCH ×2 (09:47→21:18)
[2020-08-03] MEDS: CARVEDILOL 3.125 MG TAB PO SCH ×2 (09:47→21:18)
[2020-08-03] MEDS: SACUBITRIL-VALSARTAN 24mg/26mg TAB PO SCH ×2 (09:47→21:18)
[2020-08-03] MEDS: AMIODARONE HCL 200 MG TAB PO SCH (09:47)
[2020-08-03] MEDS: PARoxetine 20 MG TAB PO SCH (09:47)
[2020-08-03] MEDS: POTASSIUM EFFERVESENT TAB 25 MEQ GT SCH (09:48)
[2020-08-03] MEDS ORDERED: LIDOCAINE HCL 100 MG/5ML (2%) SYRG INJ IV ONE (13:13)
[2020-08-03] MEDS ORDERED: LIDOCAINE 2%HCL (LOCAL ANESTH.) INJ 20ML MDV ONE (13:23)
[2020-08-03] MEDS: NOREPINEPHRINE 8 MG/250ML KIT 250 ML IV SCH (13:30)
[2020-08-03] MEDS ORDERED: MIDAZOLAM HCL 1MG/1ML-2 ML VIAL IV ONE (13:30)
[2020-08-03] MEDS ORDERED: fentaNYL CITRATE 100 MCG/2 ML VL IV ONE (13:30)
[2020-08-03] MEDS ORDERED: SODIUM PHOSPHATES 20 MEQ in SODIUM CHL 0.9% 100 ML IV ONE (14:00)
[2020-08-03] MEDS ORDERED: IOHEXOL 300 MG/ML 100ML BOTTLE IJ ONE (14:15)
[2020-08-03] MEDS: VANCOMYCIN 1GM/250ML 250 ML IV SCH (16:43)
[2020-08-03] MEDS: RIVAROXABAN 20 MG TAB PO SCH (17:43)
[2020-08-03] MEDS: LIDOCAINE 4MG/ML IV SOLN 500 ML IV SCH (19:15)
[2020-08-03 19:18] LABS: Magnesium 1.8 mg/dL (1.6-2.6); Potassium 3.2 mmol/L (3.5-5.1)
[2020-08-03] MEDS ORDERED: TPN PER PHARMACY IV NR ×9 (20:00)
[2020-08-03] MEDS: CARBIDOPA W LEVODOPA CR 25/100mg TABLET PO SCH (21:18)
[2020-08-03] MEDS: ATORVASTATIN 20 MG TAB PO SCH (21:18)
[2020-08-03] MEDS: MAGNESIUM SULFATE 1GM/100ML 100 ML IV PRN ×2 (21:29→22:26)
[2020-08-03] MEDS: POTASSIUM CHL 20MEQ/100ML 100 ML IV PRN (23:49)
[2020-08-04] VITALS (44 sets, daily range): BP systolic 95–138; BP diastolic 34–73
[2020-08-04] MEDS: POTASSIUM CHL 20MEQ/100ML 100 ML IV PRN ×6 (01:36→22:04)
[2020-08-04] MEDS: HYDROmorphone HCL 2 MG/ML VL IV PRN ×3 (03:25→19:49)
[2020-08-04] MEDS: PIPERACILLIN-TAZOB 3.375GM 100 ML IV SCH ×2 (04:48→11:58)
[2020-08-04] MEDS: ACCU-CHEK COMFORT CURVE STRIP VI SCH ×3 (04:49→18:24)
[2020-08-04] MEDS: InsuLIN REG 1unit/0.01ml Soln (100units/ml) SC SCH ×3 (05:45→18:51)
[2020-08-04] MEDS: HYDROCORTISONE SOD SUCC 100 MG/2ML INJ VIAL IV SCH ×3 (05:49→18:24)
[2020-08-04] MEDS: LEVOTHYROXINE SODIUM 112 MCG TAB PO SCH (05:50)
[2020-08-04] MEDS: VANCOMYCIN 1GM/250ML 250 ML IV SCH ×2 (05:50→22:28)
[2020-08-04 06:18] LABS: Basophils # (auto) 0 10 ^3/uL (0-0.2); Basophils % (auto) 0.1 % (0.0-2.0); Eosinophils # (auto) 0 10 ^3/uL (0-0.8); Eosinophils % (auto) 0.3 % (0.0-7.0); Hematocrit 30.7 % (36.0-46.0); Hemoglobin 9.8 g/dL (12.2-16.2); Lymphocytes # (auto) 0.7 10 ^3/uL (0.4-5.4); Mean Corpuscular Hemoglobin 27.7 pg (28.0-32.0); Mean Corpuscular Hgb Conc. 31.9 g/dL (32.0-36.0); Mean Corpuscular Volume 86.6 fL (80.0-100.0); Monocytes # (auto) 0.5 10 ^3/uL (0-1.3); Neutrophils # (auto) 4.3 10 ^3/uL (1.6-8.6); Neutrophils % (auto) 77.6 % (37.0-80.0); Platelet Count (auto) 117 10^3/uL (140-450); Red Blood Cells 3.54 10^6/uL (4.0-5.20); Red Cell Distribution Width 16.6 % (11.8-14.3); White Blood Cell 5.5 10^3/uL (4.4-10.8)
[2020-08-04 06:28] LABS: Potassium 3.7 mmol/L (3.5-5.1)
[2020-08-04 06:39] LABS: Albumin 1.6 g/dL (3.4-5.0); BUN/Creatinine Ratio 26.2; Bilirubin, Total 2.6 mg/dL (0.2-1.0); Calcium 8.1 mg/dL (8.5-10.1); Phosphorus 1.8 mg/dL (2.5-4.90)
[2020-08-04] MEDS: POTASSIUM EFFERVESENT TAB 25 MEQ GT SCH (09:24)
[2020-08-04] MEDS: AMIODARONE HCL 200 MG TAB PO SCH (09:24)
[2020-08-04] MEDS: FAMOTIDINE (10MG/ML) 2ML VL IV SCH ×2 (09:24→22:00)
[2020-08-04] MEDS: SACUBITRIL-VALSARTAN 24mg/26mg TAB PO SCH (09:25)
[2020-08-04] MEDS: PARoxetine 20 MG TAB PO SCH (09:25)
[2020-08-04] MEDS: OXYBUTYNIN CHL 5 MG TAB PO SCH (09:25)
[2020-08-04] MEDS: CARVEDILOL 3.125 MG TAB PO SCH (09:25)
[2020-08-04] MEDS ORDERED: SODIUM PHOSP 40 MEQ in D5W 5% 250 ML IV ONE (11:00)
[2020-08-04] MEDS: NOREPINEPHRINE 8 MG/250ML KIT 250 ML IV SCH (13:03)
[2020-08-04] MEDS: LACTATED RINGER'S 1,000 ML IV SCH (13:14)
[2020-08-04] MEDS ORDERED: cefTRIAXone 1GM/50ML D5W 50 ML IV ONE (15:30)
[2020-08-04 19:48] LABS: Magnesium 1.9 mg/dL (1.6-2.6); Potassium 3.8 mmol/L (3.5-5.1)
[2020-08-04] MEDS: MAGNESIUM SULFATE 1GM/100ML 100 ML IV SCH ×2 (19:48→20:52)
[2020-08-04] MEDS ORDERED: TPN PER PHARMACY IV NR ×10 (20:00)
[2020-08-05] VITALS (11 sets, daily range): BP systolic 108–126; BP diastolic 54–82
[2020-08-05] MEDS: HYDROCORTISONE SOD SUCC 100 MG/2ML INJ VIAL IV SCH ×2 (00:02→05:38)
[2020-08-05] MEDS: ACCU-CHEK COMFORT CURVE STRIP VI SCH ×5 (00:02→23:59)
[2020-08-05] MEDS: InsuLIN REG 1unit/0.01ml Soln (100units/ml) SC SCH ×4 (00:03→17:58)
[2020-08-05] MEDS: ONDANSETRON HCL 4 MG/2 ML VIAL IV PRN ×2 (00:10→01:46)
[2020-08-05] MEDS: HYDROmorphone HCL 2 MG/ML VL IV PRN ×5 (02:30→21:53)
[2020-08-05] MEDS: LACTATED RINGER'S 1,000 ML IV SCH ×2 (05:31→17:58)
[2020-08-05 07:40] LABS: Basophils # (auto) 0 10 ^3/uL (0-0.2); Basophils % (auto) 0.2 % (0.0-2.0); Eosinophils # (auto) 0 10 ^3/uL (0-0.8); Eosinophils % (auto) 0.4 % (0.0-7.0); Hematocrit 31.7 % (36.0-46.0); Hemoglobin 10.1 g/dL (12.2-16.2); Lymphocytes # (auto) 0.7 10 ^3/uL (0.4-5.4); Lymphocytes % (auto) 10.1 % (10.0-50.0); Mean Corpuscular Hemoglobin 27.7 pg (28.0-32.0); Mean Corpuscular Hgb Conc. 31.7 g/dL (32.0-36.0); Mean Corpuscular Volume 87.2 fL (80.0-100.0); Monocytes # (auto) 0.5 10 ^3/uL (0-1.3); Monocytes % (auto) 6.7 % (0.0-12.0); Neutrophils # (auto) 5.7 10 ^3/uL (1.6-8.6); Neutrophils % (auto) 82.6 % (37.0-80.0); Nucleated Red Blood Cells % 0.1 %; Platelet Count (auto) 119 10^3/uL (140-450); Red Blood Cells 3.63 10^6/uL (4.0-5.20); Red Cell Distribution Width 16.7 % (11.8-14.3); White Blood Cell 6.9 10^3/uL (4.4-10.8)
[2020-08-05 08:10] LABS: Albumin 1.6 g/dL (3.4-5.0); Calcium 7.7 mg/dL (8.5-10.1); Magnesium 2.2 mg/dL (1.6-2.6); Phosphorus 2.2 mg/dL (2.5-4.90); Potassium 3.9 mmol/L (3.5-5.1)
[2020-08-05 08:12] LABS: Total Protein 6.5 g/dL (6.4-8.2)
[2020-08-05] MEDS: cefTRIAXone 1GM/50ML D5W 50 ML IV SCH (08:38)
[2020-08-05] MEDS: FAMOTIDINE (10MG/ML) 2ML VL IV SCH ×2 (08:38→21:53)
[2020-08-05 17:38] LABS: Magnesium 2.1 mg/dL (1.6-2.6)
[2020-08-05] MEDS ORDERED: TPN PER PHARMACY IV NR ×11 (20:00)
[2020-08-06] MEDS: InsuLIN REG 1unit/0.01ml Soln (100units/ml) SC SCH ×4 (00:19→17:46)
[2020-08-06] MEDS: HYDROmorphone HCL 2 MG/ML VL IV PRN ×6 (00:30→20:20)
[2020-08-06 05:18] VITALS: BP 114/65
[2020-08-06] MEDS: ONDANSETRON HCL 4 MG/2 ML VIAL IV PRN ×2 (06:04→10:07)
[2020-08-06] MEDS: ACCU-CHEK COMFORT CURVE STRIP VI SCH ×3 (06:04→17:40)
[2020-08-06 07:40] VITALS: BP 95/61
[2020-08-06 07:58] LABS: Potassium 3.3 mmol/L (3.5-5.1)
[2020-08-06 08:04] LABS: Albumin 1.5 g/dL (3.4-5.0); BUN/Creatinine Ratio 33.3; Bilirubin, Total 1.6 mg/dL (0.2-1.0); Calcium 7.7 mg/dL (8.5-10.1); Phosphorus 2.4 mg/dL (2.5-4.90); Total Protein 6.2 g/dL (6.4-8.2)
[2020-08-06] MEDS: LACTATED RINGER'S 1,000 ML IV SCH ×2 (08:05→14:12)
[2020-08-06] MEDS: cefTRIAXone 1GM/50ML D5W 50 ML IV SCH (08:51)
[2020-08-06 09:00] VITALS: BP 95/61
[2020-08-06] MEDS: FAMOTIDINE (10MG/ML) 2ML VL IV SCH ×2 (09:08→21:39)
[2020-08-06] MEDS: POTASSIUM CHL 20MEQ/100ML 100 ML IV SCH ×2 (10:08→12:20)
[2020-08-06 13:00] VITALS: BP 121/60
[2020-08-06] MEDS ORDERED: POTASSIUM PHOSP 22MEQ(15MMOLE) in NS 100 ML IV ONE (15:00)
[2020-08-06] MEDS ORDERED: FLUCONAZOLE 200MG/100ML 100 ML IV ONE (16:00)
[2020-08-06 17:00] VITALS: BP 121/61
[2020-08-06 17:39] LABS: Magnesium 1.6 mg/dL (1.6-2.6); Potassium 4.5 mmol/L (3.5-5.1)
[2020-08-06] MEDS ORDERED: [UNRECOGNIZED DRUG - OTHER] IV NR ×12 (20:00)
[2020-08-06] MEDS ORDERED: SODIUM ACETATE IV NR ×12 (20:00)
[2020-08-06] MEDS ORDERED: FAT EMULSION IV NR ×12 (20:00)
[2020-08-06] MEDS ORDERED: SODIUM CHLORIDE IV NR ×12 (20:00)
[2020-08-06 22:00] VITALS: BP 119/73
[2020-08-07] MEDS: ACCU-CHEK COMFORT CURVE STRIP VI SCH ×4 (00:06→18:00)
[2020-08-07] MEDS: HYDROmorphone HCL 2 MG/ML VL IV PRN ×7 (00:12→21:37)
[2020-08-07] MEDS: InsuLIN REG 1unit/0.01ml Soln (100units/ml) SC SCH ×4 (00:12→18:00)
[2020-08-07 05:00] VITALS: BP 125/66
[2020-08-07 08:00] VITALS: BP 125/66
[2020-08-07 09:00] VITALS: BP 94/56
[2020-08-07] MEDS: cefTRIAXone 1GM/50ML D5W 50 ML IV SCH (09:00)
[2020-08-07] MEDS: FLUCONAZOLE 200MG/100ML 100 ML IV SCH (09:26)
[2020-08-07] MEDS: FAMOTIDINE (10MG/ML) 2ML VL IV SCH ×2 (09:26→21:37)
[2020-08-07 11:53] LABS: Basophils # (auto) 0 10 ^3/uL (0-0.2); Basophils % (auto) 0.4 % (0.0-2.0); Eosinophils # (auto) 0.3 10 ^3/uL (0-0.8); Eosinophils % (auto) 3.7 % (0.0-7.0); Hematocrit 30.1 % (36.0-46.0); Hemoglobin 9.4 g/dL (12.2-16.2); Lymphocytes % (auto) 11.8 % (10.0-50.0); Mean Corpuscular Hemoglobin 27.6 pg (28.0-32.0); Mean Corpuscular Hgb Conc. 31.1 g/dL (32.0-36.0); Mean Corpuscular Volume 88.6 fL (80.0-100.0); Monocytes # (auto) 0.6 10 ^3/uL (0-1.3); Monocytes % (auto) 6.4 % (0.0-12.0); Neutrophils # (auto) 6.7 10 ^3/uL (1.6-8.6); Neutrophils % (auto) 77.7 % (37.0-80.0); Nucleated Red Blood Cells % 0.1 %; Platelet Count (auto) 72 10^3/uL (140-450); Red Cell Distribution Width 17.5 % (11.8-14.3); White Blood Cell 8.6 10^3/uL (4.4-10.8)
[2020-08-07 12:13] LABS: Albumin 1.5 g/dL (3.4-5.0); Calcium 7.6 mg/dL (8.5-10.1); Magnesium 1.6 mg/dL (1.6-2.6); Potassium 4.2 mmol/L (3.5-5.1)
[2020-08-07 12:17] LABS: BUN/Creatinine Ratio 40.4; Bilirubin, Direct 1.3 mg/dL (0-0.2); Bilirubin, Total 1.6 mg/dL (0.2-1.0); Total Protein 6.1 g/dL (6.4-8.2)
[2020-08-07 13:00] VITALS: BP 126/68
[2020-08-07 17:00] VITALS: BP 112/68
[2020-08-07 17:41] LABS: Magnesium 1.5 mg/dL (1.6-2.6); Potassium 4.3 mmol/L (3.5-5.1)
[2020-08-07] MEDS ORDERED: TPN PER PHARMACY IV NR ×12 (20:00)
[2020-08-07 22:00] VITALS: BP 125/69
[2020-08-08] MEDS: HYDROmorphone HCL 2 MG/ML VL IV PRN ×7 (00:01→18:50)
[2020-08-08] MEDS: ACCU-CHEK COMFORT CURVE STRIP VI SCH ×4 (00:01→18:00)
[2020-08-08] MEDS: InsuLIN REG 1unit/0.01ml Soln (100units/ml) SC SCH ×4 (00:02→18:58)
[2020-08-08 05:00] VITALS: BP 111/64
[2020-08-08 07:27] LABS: Potassium 4.2 mmol/L (3.5-5.1)
[2020-08-08 07:48] LABS: Albumin 1.4 g/dL (3.4-5.0); BUN/Creatinine Ratio 32.6; Bilirubin, Total 1.7 mg/dL (0.2-1.0); Calcium 7.8 mg/dL (8.5-10.1); Magnesium 1.8 mg/dL (1.6-2.6); Phosphorus 2.8 mg/dL (2.5-4.90); Total Protein 6.1 g/dL (6.4-8.2)
[2020-08-08 09:00] VITALS: BP 111/58
[2020-08-08] MEDS: cefTRIAXone 1GM/50ML D5W 50 ML IV SCH (09:49)
[2020-08-08] MEDS: FAMOTIDINE (10MG/ML) 2ML VL IV SCH ×2 (09:50→21:50)
[2020-08-08] MEDS: FLUCONAZOLE 200MG/100ML 100 ML IV SCH (11:51)
[2020-08-08 13:00] VITALS: BP 118/68
[2020-08-08] MEDS ORDERED: MAGNESIUM SULFATE 1GM/100ML 100 ML IV ONE (14:00)
[2020-08-08 17:00] VITALS: BP 109/55
[2020-08-08] MEDS ORDERED: HYDR2TAB58 PO (18:03)
[2020-08-08] MEDS ORDERED: FENT75DI2 TD (18:03)
[2020-08-08] MEDS ORDERED: INSU100I44 SC (18:05)
[2020-08-08 20:00] VITALS: BP 130/69
[2020-08-08] MEDS ORDERED: TPN PER PHARMACY IV NR ×12 (20:00)
[2020-08-08] MEDS: LORazepam 2MG/ML-1ML VIAL IV PRN (21:49)
[2020-08-08 23:27] VITALS: BP 129/76
[2020-08-09] MEDS: ACCU-CHEK COMFORT CURVE STRIP VI SCH ×5 (00:16→23:30)
[2020-08-09] MEDS: LORazepam 2MG/ML-1ML VIAL IV PRN (02:17)
[2020-08-09] MEDS: InsuLIN REG 1unit/0.01ml Soln (100units/ml) SC SCH ×5 (06:08→23:31)
[2020-08-09 06:26] VITALS: BP 116/66
[2020-08-09] MEDS: HYDROmorphone HCL 2 MG/ML VL IV PRN ×5 (07:02→22:00)
[2020-08-09 09:06] LABS: Basophils # (auto) 0 10 ^3/uL (0-0.2); Basophils % (auto) 0.6 % (0.0-2.0); Eosinophils # (auto) 0.2 10 ^3/uL (0-0.8); Eosinophils % (auto) 2.4 % (0.0-7.0); Hematocrit 29.2 % (36.0-46.0); Hemoglobin 9.1 g/dL (12.2-16.2); Lymphocytes # (auto) 0.7 10 ^3/uL (0.4-5.4); Lymphocytes % (auto) 10.4 % (10.0-50.0); Mean Corpuscular Hemoglobin 27.4 pg (28.0-32.0); Mean Corpuscular Hgb Conc. 31.3 g/dL (32.0-36.0); Mean Corpuscular Volume 87.7 fL (80.0-100.0); Monocytes # (auto) 0.7 10 ^3/uL (0-1.3); Monocytes % (auto) 9.6 % (0.0-12.0); Neutrophils # (auto) 5.3 10 ^3/uL (1.6-8.6); Platelet Count (auto) 72 10^3/uL (140-450); Red Blood Cells 3.33 10^6/uL (4.0-5.20); Red Cell Distribution Width 17.8 % (11.8-14.3); White Blood Cell 6.9 10^3/uL (4.4-10.8)
[2020-08-09 09:30] VITALS: BP 120/69
[2020-08-09] MEDS: MAGNESIUM SULFATE 1GM/100ML 100 ML IV SCH (09:33)
[2020-08-09] MEDS: FAMOTIDINE (10MG/ML) 2ML VL IV SCH ×2 (09:33→22:00)
[2020-08-09] MEDS: cefTRIAXone 1GM/50ML D5W 50 ML IV SCH (09:33)
[2020-08-09 09:34] LABS: Albumin 1.5 g/dL (3.4-5.0); Calcium 7.8 mg/dL (8.5-10.1); Magnesium 1.9 mg/dL (1.6-2.6); Potassium 3.8 mmol/L (3.5-5.1)
[2020-08-09 09:41] LABS: BUN/Creatinine Ratio 37.8; Bilirubin, Total 1.9 mg/dL (0.2-1.0); Phosphorus 3.3 mg/dL (2.5-4.90); Pre Albumin 9.3 mg/dL (20.0-40.0); Total Protein 6.2 g/dL (6.4-8.2)
[2020-08-09] MEDS: FLUCONAZOLE 200MG/100ML 100 ML IV SCH (12:51)
[2020-08-09 17:08] VITALS: BP 119/76
[2020-08-09] MEDS ORDERED: TPN PER PHARMACY IV NR ×11 (20:00)
[2020-08-09 23:27] VITALS: BP 104/58
[2020-08-10] MEDS: HYDROmorphone HCL 2 MG/ML VL IV PRN ×9 (01:55→23:58)
[2020-08-10 05:00] VITALS: BP 105/47
[2020-08-10] MEDS: InsuLIN REG 1unit/0.01ml Soln (100units/ml) SC SCH ×3 (06:00→18:31)
[2020-08-10] MEDS: ACCU-CHEK COMFORT CURVE STRIP VI SCH ×3 (06:15→18:02)
[2020-08-10 06:35] LABS: Potassium 4.2 mmol/L (3.5-5.1)
[2020-08-10 06:45] LABS: Albumin 1.5 g/dL (3.4-5.0); BUN/Creatinine Ratio 39.1; Bilirubin, Total 1.8 mg/dL (0.2-1.0); Calcium 7.8 mg/dL (8.5-10.1); Magnesium 1.8 mg/dL (1.6-2.6); Phosphorus 3.7 mg/dL (2.5-4.90); Total Protein 6.3 g/dL (6.4-8.2)
[2020-08-10 09:00] VITALS: BP 129/58
[2020-08-10] MEDS: cefTRIAXone 1GM/50ML D5W 50 ML IV SCH (09:17)
[2020-08-10] MEDS: MAGNESIUM SULFATE 1GM/100ML 100 ML IV SCH (11:18)
[2020-08-10] MEDS: FAMOTIDINE (10MG/ML) 2ML VL IV SCH ×2 (11:19→20:51)
[2020-08-10] MEDS: FLUCONAZOLE 200MG/100ML 100 ML IV SCH (11:19)
[2020-08-10 12:55] VITALS: BP 118/55
[2020-08-10] MEDS ORDERED: MAGNESIUM SULFATE 1GM/100ML 100 ML IV ONE (14:45)
[2020-08-10] MEDS ORDERED: FLUC200T35 PO (14:51)
[2020-08-10] MEDS ORDERED: TPN PER PHARMACY IV NR ×12 (20:00)
[2020-08-10] MEDS: ONDANSETRON HCL 4 MG/2 ML VIAL IV PRN (20:50)
[2020-08-10 22:23] VITALS: BP 95/50
[2020-08-11] MEDS: ACCU-CHEK COMFORT CURVE STRIP VI SCH ×4 (00:24→18:21)
[2020-08-11] MEDS: InsuLIN REG 1unit/0.01ml Soln (100units/ml) SC SCH ×4 (00:26→18:32)
[2020-08-11] MEDS: HYDROmorphone HCL 2 MG/ML VL IV PRN ×7 (03:31→19:57)
[2020-08-11] MEDS: ONDANSETRON HCL 4 MG/2 ML VIAL IV PRN ×2 (03:35→11:30)
[2020-08-11 04:56] VITALS: BP 91/52
[2020-08-11 05:01] VITALS: BP 91/52
[2020-08-11 07:38] LABS: Albumin 1.5 g/dL (3.4-5.0); BUN/Creatinine Ratio 39.2; Bilirubin, Total 3.4 mg/dL (0.2-1.0); Magnesium 1.8 mg/dL (1.6-2.6); Phosphorus 3.3 mg/dL (2.5-4.90); Total Protein 6.9 g/dL (6.4-8.2)
[2020-08-11 09:00] VITALS: BP 112/73
[2020-08-11] MEDS: cefTRIAXone 1GM/50ML D5W 50 ML IV SCH (09:37)
[2020-08-11] MEDS: FAMOTIDINE (10MG/ML) 2ML VL IV SCH (10:22)
[2020-08-11] MEDS: FLUCONAZOLE 200MG/100ML 100 ML IV SCH (10:23)
[2020-08-11 12:49] VITALS: BP 103/59
[2020-08-11 16:56] VITALS: BP 101/65
[2020-08-11 17:23] VITALS: BP 103/59
[2020-08-11] MEDS ORDERED: TPN PER PHARMACY IV NR ×12 (20:00)
[2020-08-11] MEDS: LORazepam 2MG/ML-1ML VIAL IV PRN (21:07)
== END 2020-08-11 21:35 | disposition home health service (06) | DRG 871 ==
LOC: EDBD 12:59 → ER 12:59 → ICU WEST 13:00 → TELE-CENTR 08-05 02:26 → TELE-WESTW 08-10 14:46
PROVIDERS: ADMIT Hospitalist; ATTEND Internal Medicine
PROC: 5A1935Z Respiratory Ventilation, Less than 24 Consecutive Hours (ICD-10-PCS; 2020-08-02)
PROC: 0BH17EZ Insertion of Endotracheal Airway into Trachea, Via Natural or Artificial Opening (ICD-10-PCS; 2020-08-02)
PROC: 06HY33Z Insertion of Infusion Device into Lower Vein, Percutaneous Approach (ICD-10-PCS; 2020-08-02)
PROC: 3E0436Z Introduction of Nutritional Substance into Central Vein, Percutaneous Approach (ICD-10-PCS; 2020-08-02)
PROC: 0F2BX0Z Change Drainage Device in Hepatobiliary Duct, External Approach (ICD-10-PCS; principal; 2020-08-03)
DX: A41.9 Sepsis, unspecified organism (principal); R65.21 Severe sepsis with septic shock; J69.0 Pneumonitis due to inhalation of food and vomit; G92 Toxic encephalopathy; N17.0 Acute kidney failure with tubular necrosis; L89.154 Pressure ulcer of sacral region, stage 4; I50.42 Chronic combined systolic (congestive) and diastolic (congestive) heart failure; C25.0 Malignant neoplasm of head of pancreas; N39.0 Urinary tract infection, site not specified; K63.2 Fistula of intestine; I47.2 Ventricular tachycardia; E87.1 Hypo-osmolality and hyponatremia; D68.69 Other thrombophilia; I13.0 Hypertensive heart and chronic kidney disease with heart failure and stage 1 through stage 4 chronic kidney disease, or unspecified chronic kidney disease; I48.20 Chronic atrial fibrillation, unspecified; I48.92 Unspecified atrial flutter; C77.2 Secondary and unspecified malignant neoplasm of intra-abdominal lymph nodes; I27.20 Pulmonary hypertension, unspecified; K72.90 Hepatic failure, unspecified without coma; E88.09 Other disorders of plasma-protein metabolism, not elsewhere classified; E86.0 Dehydration; E11.21 Type 2 diabetes mellitus with diabetic nephropathy; E11.40 Type 2 diabetes mellitus with diabetic neuropathy, unspecified; N18.9 Chronic kidney disease, unspecified; E66.01 Morbid (severe) obesity due to excess calories; E03.9 Hypothyroidism, unspecified; E87.6 Hypokalemia; I48.0 Paroxysmal atrial fibrillation; E11.22 Type 2 diabetes mellitus with diabetic chronic kidney disease; K21.9 Gastro-esophageal reflux disease without esophagitis; G89.29 Other chronic pain; B96.20 Unspecified Escherichia coli [E. coli] as the cause of diseases classified elsewhere; E78.5 Hyperlipidemia, unspecified; F17.210 Nicotine dependence, cigarettes, uncomplicated; F32.9 Major depressive disorder, single episode, unspecified; I27.21 Secondary pulmonary arterial hypertension; Z79.82 Long term (current) use of aspirin; Z80.0 Family history of malignant neoplasm of digestive organs; Z68.32 Body mass index [BMI] 32.0-32.9, adult; Z80.6 Family history of leukemia; Z82.49 Family history of ischemic heart disease and other diseases of the circulatory system
CPT/HCPCS: 36415; 36556; 51702; 70450; 71045; 74018; 74176; 76000; 80048; 80053; 80061; 80076; 80202; 80307; 81001; 82040; 82140; 82150; 82962; 83036; 83605; 83690; 83735; 83880; 84100; 84132; 84443; 84478; 84484; 85025; 85610; 85730; 86850; 86900; 86901; 87040; 87081; 87086; 87088; 87186; 93005; 93306; 96361; 96365; 99291; G0378; J0696; J1450; J1815; J2001; J2250; J2405; J2543; J3480; J3490; J7060; J7131